=== PATIENT | female | born 1945 | race African-American/Black ===

== ENCOUNTER 2016-04-17 13:36 | Inpatient (IN) ==
[2016-04-17 14:51] LABS: Basophils % 0.3 % (0.0-0.8); Eosinophils % 0.3 % (0.00-10.9); Hemoglobin 12.3 GM/DL (12.0-16.0); Immature Granulocytes % 0.4 %; Immature Granulocytes Absolute 0.04 #; Lymphocytes # 1.4 10*3/uL (1.4-4.0); Lymphocytes % 14.1 % (21.3-54.2); Mean Corpuscular HGB Conc 28.9 GM/DL (32-36); Mean Corpuscular Hemoglobin 30 PG (27-34); Mean Corpuscular Volume 103.9 FL (87-102); Mean Platelet Volume 9.6 FL (9.6-12.0); Monocytes # 0.4 10*3/uL (0.11-0.8); Monocytes % 4.2 % (1.7-12.7); Neutrophils # 7.7 10*3/uL (1.4-7.4); Neutrophils % 80.7 % (38.7-73.9); Platelet Count 199 T/CUMM (130-400); Red Blood Count 4.09 MC/CUMM (3.8-5.5); Red Cell Distribution Width 13.7 % (9.3-17.3); White Blood Count 9.6 T/CUMM (4-12)
[2016-04-17 14:53] LABS: Hematocrit 42.5 VOL% (35.7-47.0)
--- NOTE | 2016-04-17 15:03 | EKG Report ---
Stationary ECG Study [facility] ER Test Date: 04/17/2016 3:02:11 PM Pat Name: KATHI PONCE Department: Room: Gender: F Couture Alterations Dressmaker: : [id number] Requested by: Sushil Grijalva Order Number: [id number] Reading MD: LAI PENA Intervals Iraan Rate: 80 P: 57 MO: 141 QRS: 93 QRSD: 137 T: -7 QT: 389 QTc: 426 Interpretive Statements SINUS RHYTHM BORDERLINE RIGHT AXIS DEVIATION OLD HIGH LATERAL MYOCARDIAL INFARCTION INTRAVENTRICULAR CONDUCTION DELAY Electronically Signed On 04-17-16 16:28:47 INFO PRINT PRESS OPERATOR by LAI PENA [email or web address]
[2016-04-17 15:20] LABS: Albumin 3.4 G/DL (3.4-5.0); Bilirubin,Total 0.4 MG/DL (0.2-1.0); Calcium 8.9 MG/DL (8.5-10.1); Free T4 (Free Thyroxine) 1.08 NG/DL (0.76-1.46); Magnesium 2.4 MG/DL (1.8-2.4); Osmolality,Calculated 285.3 MOS/KG (273-304); Potassium 5.1 MMOL/L (3.5-5.1); Thyroid Stimulating Hormone 2.19 uIU/ml (0.358-3.74)
--- NOTE | 2016-04-17 15:30 | CT Report ---
Referring physician: Sushil Mckeon Exam: CT brain without contrast Date: April 17, 2016 Comparison: CT brain without contrast January 14, 2016 Reason: Altered level of consciousness The patient is an Emergency Department patient on April 17, 2016. Technique: Axial images of the head were obtained without the use of contrast. Total DLP was 1108.9 mGy*cm. Findings: There is prominent hyperostosis frontalis interna, which produces mild artifact at the frontal lobes. No definite recent intracranial hemorrhage, abnormal mass effect or acute infarction is identified. No hydrocephalus or midline shift is present. There is mild density at the bilateral basal ganglia. This is similar to before and most consistent with calcification. No acute osseous process is seen. The mastoid air cells and visualized paranasal sinuses are clear. Impression: No acute intracranial process is identified. The CT exam was performed using one or more of the following dose reduction techniques: Automated exposure control and adjustment of the mA and/or kV according to patient size. PROCEDURE INTERPRETED AT [facility] DEPARTMENT OF RADIOLOGY Final Report Signed by: Dr. Arvind Jerez
--- NOTE | 2016-04-17 15:41 | XRay Report ---
Portable chest Date:[04/17/2016] Clinical history: Chest pain Comparison: 02/09/2016 Technique: Portable AP sitting chest Findings: The heart is slightly larger in size. Expiratory chest with accentuation of the perihilar markings. Degenerative changes are noted. Impression: Limited expiratory chest. Cardiomegaly with findings which can be seen with mild pneumonitis/CHF. PROCEDURE INTERPRETED AT [facility] DEPARTMENT OF RADIOLOGY Final Report Signed by: Dr. Tran Schroeder
--- NOTE | 2016-04-17 15:46 | Emergency Department Note ---
Maria C Cristina Brittany, am scribing for, and in the presence of, Sushil Mckeon MD 14:19. Mike Cristina Phillip K, MD, personally performed the services described in this documentation, ascribed by Alessia Lombardi in my presence, and it is both accurate and complete [id number] . Arrival - Arrival ED Nursing Triage Note: REPORTS PT WAS HARD TO AROUSE THIS AM. EMS ARRIVED AND PT CONTINUES TO BE LETHARGIC BUT SLOW TO RESPOND. BG 127. PT LETHARGIC BUT EASY TO AROUSE 98AT TRIAGE Mode of Arrival: Stretcher Limitations: No Limitations Source: Patient, Family - History of Present Illness Onset (ago): hour(s) (Started eariler this morning) Consistency: constant Severity: moderate Date of Last Menstrual Period: HYST <Sushil Mckeon - Last Filed: 04/17/16 15:46> <Philip Aranda - Last Filed: 04/17/16 18:23> - Arrival Chief Complaint: Non-Specific Stated Complaint: LETHARGIC - History of Present Illness HPI Narrative: This is a obese 70 y/o black female,who presents to the ED with c/o lethargy which started earlier this morning. Her family reports she was hard to arouse this morning. Her tried to wake her up from sleep this morning, and tried to give her juice. with no answer from pt. Her son states pt normally ambulates around her home. Her son denies any fever, vomiting or diarrhea. Pt denies any pain at all. Pt acknowledges taking Ambien PRN when she has trouble sleeping. She states she took the Ambien last night, at this time it is unknown exactly how many she took. Her Last Known Well Times was last night. Pt denies any other complaints/pain in the ED at this time. Pt has a PMHx of HTN, thyroid disorder, NIDDM, dyslipidemia, bronchitis, asthma, obstructive sleep apnea, GERD , osteoporosis, back/neck problems, clotting problems, and reproductive cancer. Pt has had a cardiac cath, cholectstectomy, and hysterectomy. Pt has a family medical Hx of cancer, diabetes, HTN, and heart disease. Pt denies a social Hx. (Alessia Lombardi) This is a obese 70 y/o black female,who presents to the ED with c/o lethargy which started earlier this morning. Her family reports she was hard to arouse this morning. Her tried to wake her up from sleep this morning, and tried to give her juice. with no answer from pt. Her son states pt normally ambulates around her home. Her son denies any fever, vomiting or diarrhea. Pt denies any pain at all. Pt acknowledges taking Ambien PRN when she has trouble sleeping. She states she took the Ambien last night, at this time it is unknown exactly how many she took. Her Last Known Well Times was last night. Pt denies any other complaints/pain in the ED at this time. Pt has a PMHx of HTN, thyroid disorder, NIDDM, dyslipidemia, bronchitis, asthma, obstructive sleep apnea, GERD , osteoporosis, back/neck problems, clotting problems, and reproductive cancer. Pt has had a cardiac cath, cholectstectomy, and hysterectomy. Pt has a family medical Hx of cancer, diabetes, HTN, and heart disease. Pt denies a social Hx. (Sushil Mckeon) Allergies/Adverse Reactions: Allergies Allergy/AdvReac Type Severity Reaction Status Date / Time IVP DYE Allergy Unknown/Unable Uncoded 11/13/14 17:11 to obtain Home Medications: Home Medications Medication Instructions Recorded Confirmed Type Allopurinol [Zyloprim] 300 mg PO DAILY #30 tablet 01/17/16 01/21/16 Rx Aspirin EC Tab 81 mg PO DAILY tablet 01/17/16 01/21/16 Rx Bumetanide Tab [Bumex Tab] 1 mg PO BID DIURETIC #60 tablet 01/17/16 01/21/16 Rx Diltiazem Tab [Cardizem Tab] 60 mg PO BID #60 tablet 01/17/16 01/21/16 Rx Glimepiride [Amaryl] 4 mg PO DAILY W/BREAKFAST #30 01/17/16 01/21/16 Rx tablet Hydrocortisone (Anusol-Hc) Sup 25 mg RECTAL BID #60 suppository 01/17/16 Rx [Anusol HC Supp] Levothyroxine Tab [Synthroid Tab] 50 mcg PO DAILY@0700 #30 tablet 01/17/1601/20 Rx Losartan Potassium 25 mg PO DAILY #30 tablet 01/17/16 01/21/16 Rx Meclizine [Antivert] 12.5 mg PO BID PRN #60 tablet 01/17/16 01/21/16 Rx Metformin HCl [Metformin HCl ER] 500 mg PO BID #60 tab.er.24 01/17/16 01/21/16 Rx Pantoprazole Tab [Protonix Tab] 40 mg PO DAILY #30 01/17/16 01/21/16 Rx Potassium Chloride [K-Tab ER] 10 meq PO DAILY #30 tablet.er 01/17/16 01/21/16 Rx Doxycycline Monohydrate 50 mg PO BID 01/21/16 01/21/16 History Warfarin Sodium 6 mg PO DAILY 01/21/16 01/21/16 History Indomethacin Cap [Indocin Cap] 25 mg PO TID #30 capsule 02/10/16 Rx Tizanidine HCl [Zanaflex] 2 mg PO Q6H #40 capsule 02/10/16 Rx Review of System - Review of System 12 point system: reviewed and no additional remarkable complaints except as stated - Review of System Constitutional: Present: fever Gastrointestinal: Present: vomiting, diarrhea Neurological: Present: other (Lethargic, slow to respond ) <Sushil Mckeon - Last Filed: 04/17/16 15:46> Medical,Surgical,& Family Hx - Medical History Cardio: History of: Hypertension Endocrine: History of: Diabetes Mellitus (NIDDM), Dyslipidemia, Thyroid Disorder Respiratory: History of: Asthma, Bronchitis, Obstructive Sleep Apnea Gastrointestinal: History of: GERD Musculoskeletal: History of: Back/Neck Problems (chronic thoracic spine spasm), Osteoporosis Hematology: History of: Clotting Problems Reproductive: History of: Reproductive Cancer - Surgical History Cardiac Surgeries: Sugical HX of: Cardiac Catheterization Abdominal Surgeries: Surgical HX of: Cholecystectomy Reproductive Surgeries: Surgical HX of;: Hysterectomy - Family History Family History: Reports;: Family Cancer (father, 4 brothers, 1 sister), Family Diabetes (sister), Family Heart Disease (mother), Family Hypertension (father, mother) Denies;: Family Anesthesia Reaction, Family Psychiatric Problems, Family Stroke - Social History Smoking Status: Never smoker Frequency of Alcohol Use: None Type of Drug Use: None <Sushil Mckeon - Last Filed: 04/17/16 15:46> Exam - General General appearance: alert, in no apparent distress, obese - Head Head exam: Present: atraumatic, normocephalic, normal inspection - Eye Eye exam: Present: normal appearance, PERRL, EOMI - ENT ENT exam: Present: normal exam, normal oropharynx, mucous membranes moist - Neck Neck exam: Present: normal inspection, full ROM, trachea midline. Absent: tenderness, thyromegaly - Chest Chest inspection: Present: normal inspection, symmetric chest wall rise. Absent : tenderness, rash, abscess - Respiratory Respiratory exam: Present: rales (Bi-basilar Rales). Absent: respiratory distress, rhonchi, stridor, wheezes - Cardiovascular Cardiovascular exam: Present: regular rate, normal rhythm, normal heart sounds. Absent: murmur, rubs, gallop, clicks - Abdominal Exam Abdominal exam: Present: soft. Absent: distention, tenderness, guarding, rebound, rigidity - Extremities Exam Extremities exam: Present: normal inspection, full ROM, normal capillary refill. Absent: tenderness, joint swelling, calf tenderness - Back Exam Back exam: Present: normal inspection, full ROM. Absent: tenderness, muscle spasm, rashes - Neurological Exam Neurological exam: Present: alert, oriented X3, CN II-XII intact, other ( Lethargic, slow to respond, hard to arouse but arousable) - Psychiatric Psychiatric exam: Present: normal affect, normal mood. Absent: agitated, anxious - Skin Skin exam: Present: warm, dry, intact, normal color. Absent: rash, cyanosis, diaphoresis <Sushil Mckeon - Last Filed: 04/17/16 15:46> Vital Signs: Vital Signs Temperature 98.0 F 04/17/16 13:37 Pulse Rate 84 04/17/16 13:37 Respiratory Rate 17 04/17/16 14:37 Blood Pressure 163/92 04/17/16 13:37 O2 Sat by Pulse Oximetry 96 04/17/16 13:37 (Alessia Lombardi) (Sushil Mckeon) (Philip Aranda) Course <Sushil Mckeon - Last Filed: 04/17/16 15:46> - Consultations Time: 18:20 <Philip Aranda - Last Filed: 04/17/16 18:23> Course Narrative: Patient's urinalysis is presently pending. I feel the patient's decreased responsiveness is possibly due to her Ambien. Patient will be signed out to Dr. Aranda. (Sushil Mckeon) - Consultations Consultation #1: Patient will be admitted to the hospital for altered mental status hepatic encephalopathy by the hospitalist (Philip Aranda) Results - Labs CBC & BMP: 04/17/16 13:44 04/17/16 13:44 Lab Results: I have reviewed the patients labs - EKG EKG results: interpreted by ERMD, sinus rhythm (nonspecific ST-T changes) - Diagnostic Findings Procedure: Chest x-ray: report reviewed by me (cardiomegaly.), CT: report reviewed by me (no acute intracranial process.) <Sushil Mckeon - Last Filed: 04/17/16 15:46> - Labs CBC & BMP: 04/17/16 13:44 04/17/16 13:44 <Philip Aranda - Last Filed: 04/17/16 18:23> - Labs Labs: Laboratory Tests 04/17/16 04/17/16 13:44 14:06 MCV 103.9 H MCHC 28.9 L Neut % (Auto) 80.7 H Lymph % (Auto) 14.1 L Neut # (Auto) 7.7 H POC Glucose 124 H (Alessia Lombardi) Laboratory Tests 04/17/16 04/17/16 13:44 14:06 MCV 103.9 H MCHC 28.9 L Neut % (Auto) 80.7 H Lymph % (Auto) 14.1 L Neut # (Auto) 7.7 H POC Glucose 124 H (Sushil Mckeon) Disposition <Sushil Mckeon - Last Filed: 04/17/16 15:46> Case discussed with: patient, patient's family Time of Disposition: 18:22 <Philip Aranda - Last Filed: 04/17/16 18:23> Clinical Impression: Altered mental status, unspecified, Hypersomnolence, Hepatic encephalopathy Disposition: Still a Patient Condition: Stable
[2016-04-17 15:57] LABS: Apearance,Urine Slightly Hazy (Clear); Bacteria,Urine Occasional /HPF (Few); Bilirubin,Urine Negative (Negative); Blood, Urine Negative (Negative); Glucose,Urine (UA) Negative (Negative); Ketones,Urine Negative (Negative); Mucus,Urine Occasional /LPF (Occasional); Nitrite,Urine Negative (Negative); Protein,Urine Negative; RBC,Urine <1 /HPF (0-4); Squamous Epithelial Cell,Urine Occasional /HPF (0-10); Urine Color Yellow (Yellow); Urine Specific Gravity 1.011 (1.001-1.035); Urine Urobilinogen < 2.0 EU/DL (0.2-1.0); WBC,Urine 1 /HPF (0-6)
--- NOTE | 2016-04-17 18:55 | Hospitalist History & Physical ---
<Jocelin Rodrigez N - Last Filed: 04/17/16 18:48> Assessment and Plan - Time spent with patient Time spent with patient: Greater than 30 minutes (1) Altered mental status, unspecified Status: Acute Assessment and plan: Admit to monitored bed ABG now GI consult routine labs in AM, repeat Ammonia in AM chronulac 20mg PO Q4H MG, BNP now diabetic diet, SSI while inpt TSH/T4 resume home meds as appropriate PRN meds CPAP at night DVT prophylaxis further plan and addendum to follow per Dr. Rodarte Current Visit: Yes (2) Hepatic encephalopathy Status: Acute Current Visit: Yes (3) Hypersomnolence Status: Acute Current Visit: Yes (4) CHF (congestive heart failure) Status: Acute Current Visit: No History of Present Illness Chief complaint: confusion, AMS History of present illness: Ms. Littlejohn is a 70 year old female who was brought to the Er today after being very lethargic and confused this morning. Her son who lives with her states that she was very sleepy and sluggish to respond around 10;30 this morning, he was concerned her sugar was dropping and they got her to drink some juice but when she did not improve they called 911. EMS says her glucose was 126. She has slept through most of her time in the ER, in the last ten minutes she has become more awake and alert, at the time we saw her she was assisted to the restroom by daughter and nurse, she was able to provide us with more information. She states she has been more short of breath over the last week, also had some constipation that she took laxitives for and complains of being gassy. She did take an Ambien last night before bed but one does not normally make her sleep like she did today. She has a PMH of HTN, thyroid disorder, DM, dyslipidemia, bronchitis, asthma, obstructive sleep apnea, GERD, osteoporosis, back/neck problems, clotting problems, and reproductive cancer. Pt has had a cardiac cath, cholectstectomy, and hysterectomy. Pt has a family medical Hx of cancer, diabetes, HTN, and heart disease. Pt denies a social Hx. recent echo shows an EF of >65% with some diastolic dysfunction. She was also noted today to have an elevated Ammonia level, no prior history of liver failure, no prior ammonia or radiologic studies in records. Pt has been having increased difficulty getting around at home for the last three years, uses a cane. Also uses a CPAP at night. Home Medications Medication Instructions Recorded Confirmed Type Allopurinol [Zyloprim] 300 mg PO DAILY #30 tablet 01/17/16 01/21/16 Rx Aspirin EC Tab 81 mg PO DAILY tablet 01/17/16 01/21/16 Rx Bumetanide Tab [Bumex Tab] 1 mg PO BID DIURETIC #60 tablet 01/17/16 01/21/16 Rx Diltiazem Tab [Cardizem Tab] 60 mg PO BID #60 tablet 01/17/16 01/21/16 Rx Glimepiride [Amaryl] 4 mg PO DAILY W/BREAKFAST #30 01/17/16 01/21/16 Rx tablet Hydrocortisone (Anusol-Hc) Sup 25 mg RECTAL BID #60 suppository 01/17/16 Rx [Anusol HC Supp] Levothyroxine Tab [Synthroid Tab] 50 mcg PO DAILY@0700 #30 tablet 01/17/1601/20 Rx Losartan Potassium 25 mg PO DAILY #30 tablet 01/17/16 01/21/16 Rx Meclizine [Antivert] 12.5 mg PO BID PRN #60 tablet 01/17/16 01/21/16 Rx Metformin HCl [Metformin HCl ER] 500 mg PO BID #60 tab.er.24 01/17/16 01/21/16 Rx Pantoprazole Tab [Protonix Tab] 40 mg PO DAILY #30 01/17/16 01/21/16 Rx Potassium Chloride [K-Tab ER] 10 meq PO DAILY #30 tablet.er 01/17/16 01/21/16 Rx Doxycycline Monohydrate 50 mg PO BID 01/21/16 01/21/16 History Warfarin Sodium 6 mg PO DAILY 01/21/16 01/21/16 History Indomethacin Cap [Indocin Cap] 25 mg PO TID #30 capsule 02/10/16 Rx Tizanidine HCl [Zanaflex] 2 mg PO Q6H #40 capsule 02/10/16 Rx Allergies Allergy/AdvReac Type Severity Reaction Status Date / Time IVP DYE Allergy Unknown/Unable Uncoded 11/13/14 17:11 to obtain Medical,Surgical,& Family Hx - Medical History Cardio: History of: Hypertension Endocrine: History of: Diabetes Mellitus (NIDDM), Dyslipidemia, Thyroid Disorder Respiratory: History of: Asthma, Bronchitis, Obstructive Sleep Apnea Gastrointestinal: History of: GERD Musculoskeletal: History of: Back/Neck Problems (chronic thoracic spine spasm), Osteoporosis Hematology: History of: Clotting Problems Reproductive: History of: Reproductive Cancer - Surgical History Cardiac Surgeries: Sugical HX of: Cardiac Catheterization Abdominal Surgeries: Surgical HX of: Cholecystectomy Reproductive Surgeries: Surgical HX of;: Hysterectomy - Family History Family History: Reports;: Family Cancer (father, 4 brothers, 1 sister), Family Diabetes (sister), Family Heart Disease (mother), Family Hypertension (father, mother) Denies;: Family Anesthesia Reaction, Family Psychiatric Problems, Family Stroke - Social History Smoking Status: Never smoker Frequency of Alcohol Use: None Type of Drug Use: None Marital Status: Lives With:: Children Functional capacity: uses cane/walker - Constitutional Constitutional: Present: fatigue, lethargy - EENT Eyes: Absent: blurry vision Nose, mouth and throat: Absent: sore throat - Cardiovascular Cardiovascular: Present: dyspnea on exertion, edema - Respiratory Respiratory: Present: dyspnea on exertion. Absent: cough - Gastrointestinal Gastrointestinal: Present: bloating, constipation - Genitourinary Genitourinary: Absent: dysuria, hematuria - Musculoskeletal Musculoskeletal: Present: back pain (chronic). Absent: muscle weakness - Neurological Neurological: Absent: focal weakness, frequent falls - Psychiatric Psychiatric: Present: confusion. Absent: anxiety - Endocrine Endocrine: Present: fatigue - Hematologic/Lymphatic Hematologic/Lymphatic: Present: easy bleeding, easy bruising Exam - Constitutional Vitals: Period Temp Pulse Resp BP Sys/Arellano Pulse Ox Last 24 Hr 98.0 F 84 17-22 163/92 96 General appearance: no acute distress, morbidly obese - Head Head exam: Present: normal inspection, normocephalic - Eye Eye exam: Present: EOMI. Absent: scleral icterus Pupils: Present: LORETO, normal accommodation - ENT ENT exam: Present: normal exam, normal oropharynx - Neck Neck exam: Present: normal inspection. Absent: lymphadenopathy - Respiratory Respiratory exam: Present: decreased breath sounds. Absent: wheezes - Cardiovascular Cardiovascular exam: Present: regular rate and rhythm. Absent: tachycardia - GI/Abdominal GI/Abdominal exam: Present: normal bowel sounds, soft. Absent: tenderness - Extremities Exam Extremities exam: Present: full ROM, edema (chronic) - Back Exam Back exam: Present: normal inspection. Absent: muscle spasm - Neurological Exam Neurological exam: Present: alert, altered, CN II-XII intact, reflexes normal, other (ataxic). Absent: motor sensory deficit - Psychiatric Psychiatric exam: Present: normal affect, normal mood - Skin Skin exam: Present: normal color, warm, dry Results - Labs CBC & BMP: 04/17/16 13:44 04/17/16 13:44 Lab Results: I have reviewed the past 24 hour labs <AsterMelita R - Last Filed: 04/17/16 19:51> Assessment and Plan (1) Hepatic encephalopathy Status: Acute Assessment and plan: lactulose every 6 hours, consult GI in am, liver us Current Visit: Yes (2) KOSTA (obstructive sleep apnea) Status: Acute Assessment and plan: cpap at night, abg Current Visit: Yes (3) CHF (congestive heart failure) Status: Acute Assessment and plan: bnp, hold lasix Current Visit: No (4) History of DVT of lower extremity Status: Acute Assessment and plan: Stat INR, cont coumadin Current Visit: No (5) Hypertension Status: Acute Assessment and plan: cont home meds Current Visit: No (6) Morbid obesity Status: Acute Current Visit: No (7) Type 2 diabetes mellitus Status: Acute Assessment and plan: isc Current Visit: No History of Present Illness History of present illness: Ms. Littlejohn is a 70 year old female seen and examined. Hospital course reviewed and edited. Patient's son reports compliance with cpap at bedtime. - EENT Eyes: Absent: loss of vision Ears: Absent: decreased hearing, ear discharge Nose, mouth and throat: Absent: headache(s) - Cardiovascular Cardiovascular: Absent: chest pain at rest - Respiratory Respiratory: Present: wheezing, snoring - Gastrointestinal Gastrointestinal: Absent: nausea, vomiting - Psychiatric Psychiatric: Absent: depression - Endocrine Endocrine: Absent: cold intolerance, heat intolerance Exam - Constitutional Vitals: Period Temp Pulse Resp BP Sys/Arellano Pulse Ox Last 24 Hr 84 21 142/67 98 - Respiratory Respiratory exam: Present: wheezes. Absent: rales, rhonchi - Neurological Exam Neurological exam: Absent: alert, oriented X3 Results - Labs CBC & BMP: 04/17/16 13:44 04/17/16 13:44 Labs: ammonia 64 - EKG EKG shows: sinus rhythm - Diagnostic Findings Procedure: Chest x-ray: report reviewed by me (?CHF ), CT: report reviewed by me (Head nothing acute )
[2016-04-17 20:25] LABS: ABG Base Excess 4.5 MMOL/L (-2.5-2.5); ABG HCO3 28.4 MMOL/L (20-26); ABG Oxygen Saturation 95.9 % (95-100); ABG PO2 86.2 MM HG (80-95); ABG TCO2 33.8 MMOL/L (23-27); Allen Test Positive
[2016-04-17 20:27] LABS: ABG PCO2 97.3 MM HG (35-48); ABG PH 7.188 (7.35-7.45)
[2016-04-17] MEDS ORDERED: ACETAMINOPHEN 325 MG TABLET PO PRN (21:36)
[2016-04-17] MEDS ORDERED: DEXTROSE 50% 25 GM/50 ML VIAL IV PRN (21:36)
[2016-04-17] MEDS ORDERED: ONDANSETRON 4 MG/2 ML VIAL IV PRN (21:36)
[2016-04-17] MEDS ORDERED: GLUCAGON 1 MG VIAL IM PRN (21:36)
[2016-04-17 22:15] LABS: INR 1.1; PT Patient Result 11.6 SECS; Partial Thromboplastin Time 30.3 SECS (0-40)
[2016-04-17] MEDS: INSULIN LISPRO 100 UNIT/ML SUBCUT SCH (22:36)
[2016-04-17] MEDS: HYDROCORTISONE 25 MG SUPP RECTAL SCH (23:30)
[2016-04-17] MEDS: ENOXAPARIN 120 MG/0.8 ML SYRINGE SUBCUT SCH (23:40)
[2016-04-17] MEDS: LACTULOSE 20 GM/30 ML UDCUP PO SCH (23:40)
[2016-04-17] MEDS: DILTIAZEM 60 MG TABLET PO SCH (23:41)
[2016-04-18 00:03] LABS: Apearance,Urine Slightly Hazy (Clear); Bacteria,Urine Occasional /HPF (Few); Bilirubin,Urine Negative (Negative); Blood, Urine Moderate mg/dL (Negative); Glucose,Urine (UA) Negative (Negative); Ketones,Urine Negative (Negative); Nitrite,Urine Negative (Negative); Protein,Urine Negative; RBC,Urine <1 /HPF (0-4); Squamous Epithelial Cell,Urine Occasional /HPF (0-10); Urine Color Yellow (Yellow); Urine Specific Gravity 1.005 (1.001-1.035); Urine Urobilinogen < 2.0 EU/DL (0.2-1.0); WBC,Urine <1 /HPF (0-6)
[2016-04-18 01:22] LABS: Basophils % 0.2 % (0.0-0.8); Eosinophils # 0.1 10*3/uL (0.0-0.87); Eosinophils % 1.2 % (0.00-10.9); Hematocrit 40.2 VOL% (35.7-47.0); Hemoglobin 11.6 GM/DL (12.0-16.0); Immature Granulocytes % 0.4 %; Immature Granulocytes Absolute 0.04 #; Lymphocytes # 1.5 10*3/uL (1.4-4.0); Lymphocytes % 17.3 % (21.3-54.2); Mean Corpuscular HGB Conc 28.9 GM/DL (32-36); Mean Corpuscular Hemoglobin 29 PG (27-34); Mean Corpuscular Volume 101.8 FL (87-102); Mean Platelet Volume 9.8 FL (9.6-12.0); Monocytes # 0.4 10*3/uL (0.11-0.8); Monocytes % 4.6 % (1.7-12.7); Neutrophils # 6.8 10*3/uL (1.4-7.4); Neutrophils % 76.3 % (38.7-73.9); Platelet Count 192 T/CUMM (130-400); Red Blood Count 3.95 MC/CUMM (3.8-5.5); Red Cell Distribution Width 13.4 % (9.3-17.3); White Blood Count 8.9 T/CUMM (4-12)
[2016-04-18 01:47] LABS: Potassium 5.9 MMOL/L (3.5-5.1)
[2016-04-18] MEDS: LACTULOSE 20 GM/30 ML UDCUP PO SCH ×5 (02:36→23:16)
[2016-04-18] MEDS: LEVOTHYROXINE 50 MCG TABLET PO SCH (06:08)
--- NOTE | 2016-04-18 07:57 | Ultrasound Report ---
Referring Physician: Melita Rodarte Exam: US right upper quadrant Date: April 18, 2016 Reason: Liver failure Comparison: None Technique: Grayscale ultrasound images of the right upper abdomen were obtained. Ultrasound images were captured and stored. Findings: The liver measures 13.1 cm in length. No focal suspicious hepatic lesion is identified, but evaluation is limited by artifact from patient body habitus. The main portal vein appears patent. The gallbladder is not identified, but there is a history of cholecystectomy. The common bile duct is upper normal in size, measuring 0.5 cm in diameter. The visualized pancreas is unremarkable, but it is partially obscured by bowel gas. The right kidney measures 10.5 x 5.7 x 5.6 cm. No right hydronephrosis or suspicious renal lesion is identified. No ascites is seen. Impression: No acute abdominal process is identified. However, evaluation is limited by artifact from patient body habitus. PROCEDURE INTERPRETED AT [facility] DEPARTMENT OF RADIOLOGY Final Report Signed by: Dr. Arvind Jerez
[2016-04-18] MEDS ORDERED: INFLUENZA VIRUS VACCINE 0.5 ML SYRINGE IM ONE (09:00)
[2016-04-18 09:12] LABS: Magnesium 2.2 MG/DL (1.8-2.4); Potassium 5.4 MMOL/L (3.5-5.1)
[2016-04-18 09:22] LABS: Allen Test Positive
[2016-04-18 09:24] LABS: ABG Base Excess 8.4 MMOL/L (-2.5-2.5); ABG HCO3 31.8 MMOL/L (20-26); ABG Oxygen Saturation 79.9 % (95-100); ABG PCO2 68.7 MM HG (35-48); ABG PH 7.338 (7.35-7.45); ABG PO2 43.9 MM HG (80-95); ABG TCO2 33.3 MMOL/L (23-27)
[2016-04-18] MEDS: INSULIN LISPRO 100 UNIT/ML SUBCUT SCH ×4 (09:34→20:46)
[2016-04-18] MEDS: ASPIRIN EC 81 MG TABLET PO SCH (10:16)
[2016-04-18] MEDS: ALLOPURINOL 300 MG TABLET PO SCH (10:16)
[2016-04-18] MEDS: DILTIAZEM 60 MG TABLET PO SCH ×2 (10:16→20:17)
--- NOTE | 2016-04-18 10:16 | Hospitalist Progress Note ---
Assessment and Plan - Time spent with patient Time spent with patient: Greater than 30 minutes (1) Acute respiratory failure Status: Acute Assessment and plan: CO2 retention secondary to pickwickian vs KOSTA? No history of COPD. Will evaluate the patient of BIPAP. Consult Pulm. Current Visit: Yes (2) Encephalopathy Status: Acute Assessment and plan: Likely secondary to CO2 narcosis. ABGs are much improved currently. Current Visit: Yes (3) CHF (congestive heart failure) Status: Acute Assessment and plan: Stable. Current Visit: No (4) History of DVT of lower extremity Status: Acute Assessment and plan: Continue warfarin. Current Visit: No (5) Gout Status: Acute Assessment and plan: Continue some medications. Current Visit: Yes (6) Hypertension Status: Acute Assessment and plan: Continue medications. Current Visit: No (7) Type 2 diabetes mellitus Status: Acute Assessment and plan: Well controlled. Obtain a HgA1c. Current Visit: No (8) Morbid obesity Status: Acute Assessment and plan: May be contributing to the current CO2 retention. Current Visit: No Hospitalist: Subjective Interval history: Admitted overnight with altered mental status. Appears to have returned to baseline mental status. No complaints currently. Reports feeling better this morning. She was on BIPAP all night. Exam - Constitutional Vitals: Period Temp Pulse Resp BP Sys/Arellano Pulse Ox Last 24 Hr 96.2 F-98.0 F 53-86 7-33 138-198/60-107 93-100 General appearance: no acute distress - Head Head exam: Present: normocephalic, atraumatic - Eye Eye exam: Present: EOMI Pupils: Present: LORETO - ENT ENT exam: Present: normal exam - Neck Neck exam: Present: normal inspection - Respiratory Respiratory exam: Present: clear to auscultation bilaterally. Absent: rhonchi, wheezes - Cardiovascular Cardiovascular exam: Present: regular rate and rhythm. Absent: gallop, rubs, systolic murmur - GI/Abdominal GI/Abdominal exam: Present: normal bowel sounds, soft. Absent: distended, firm , guarding, tenderness, rebound - Extremities Exam Extremities exam: Present: normal inspection. Absent: calf tenderness, edema Results - Labs CBC & BMP: 04/18/16 00:46 04/18/16 08:41 Lab Results: I have reviewed the past 24 hour labs
[2016-04-18] MEDS: PANTOPRAZOLE 40 MG TABLET PO SCH (10:17)
[2016-04-18] MEDS: ENOXAPARIN 120 MG/0.8 ML SYRINGE SUBCUT SCH ×2 (10:18→23:16)
--- NOTE | 2016-04-18 11:40 | Gastrointestinal Consult Note ---
Assessment and Plan (1) Hepatic encephalopathy Status: Acute Assessment and plan: 04/18-Onset of lethargy, increased somnolence with findings of elevated ammonia level. No GI bleeding, Abd US negative. No hx of liver disease, alcohol use. Ammonia trending down today. Plan and addendum to follow by Dr Menchaca. Current Visit: Yes History of Present Illness Chief complaint: Elevated ammonia level History of present illness: Ms. Littlejohn is a 70 year old female who was admitted to the hospital with onset of changes in mental status. Pt is a fair historian therefore information also obtained from chart review. She has a prior history of morbid obesity, sleep apnea, HTN, thyroid disorder, DM and asthma. Pt states that on yesterday her tried to wake her up that morning and she was unarousable. She was lethargic and confused at that time therefore she was brought in for further evaluation. Pt blood glucose was stable on admission however shortly after arriving at the hospital she became more alert. She states that she has been taking Ambien for sleep and they have not been working as well. She is uncertain but feels like she may have taken another one but she cannot recall. She was found on admission also to have elevated ammonia level. She states she has never had this in the past that she is aware of. She denies any history of liver disease, alcohol use or elevated liver test in the past. Denies any GI bleed, melena, hematochezia. She denies history of tobacco use. Denies any recent medication changes, illnesses. Abdominal US shows no acute abdominal process identified with no focal liver masses seen. LFTs unremarkable. Ammonia 64 on admission down to 55 today. She has been given lactulose with one bowel movement today. Pt is asking regarding last colonoscopy which was done in 2011 with polyp removal (tubular adenoma) with recommedation for three year return. She is wishing to schedule this when she is able to following this inpatient stay. Home Medications Medication Instructions Recorded Confirmed Type Allopurinol [Zyloprim] 300 mg PO DAILY #30 tablet 01/17/16 01/21/16 Rx Aspirin EC Tab 81 mg PO DAILY tablet 01/17/16 01/21/16 Rx Bumetanide Tab [Bumex Tab] 1 mg PO BID DIURETIC #60 tablet 01/17/16 04/17/16 Rx Diltiazem Tab [Cardizem Tab] 60 mg PO BID #60 tablet 01/17/16 04/17/16 Rx Glimepiride [Amaryl] 4 mg PO DAILY W/BREAKFAST #30 01/17/16 01/21/16 Rx tablet Hydrocortisone (Anusol-Hc) Sup 25 mg RECTAL BID #60 suppository 01/17/16 Rx [Anusol HC Supp] Levothyroxine Tab [Synthroid Tab] 50 mcg PO DAILY@0700 #30 tablet 01/17/1601/20 Rx Losartan Potassium 25 mg PO DAILY #30 tablet 01/17/16 01/21/16 Rx Meclizine [Antivert] 12.5 mg PO BID PRN #60 tablet 01/17/16 01/21/16 Rx Metformin HCl [Metformin HCl ER] 500 mg PO BID #60 tab.er.24 01/17/16 04/17/16 Rx Pantoprazole Tab [Protonix Tab] 40 mg PO DAILY #30 01/17/16 01/21/16 Rx Potassium Chloride [K-Tab ER] 10 meq PO DAILY #30 tablet.er 01/17/16 04/17/16 Rx Doxycycline Monohydrate 50 mg PO BID 01/21/16 01/21/16 History Warfarin Sodium 5 mg PO DAILY 01/21/16 04/17/16 History Indomethacin Cap [Indocin Cap] 25 mg PO TID #30 capsule 02/10/16 Rx Tizanidine HCl [Zanaflex] 2 mg PO Q6H #40 capsule 02/10/16 Rx Zolpidem Tartrate 10 mg PO BEDTIME PRN 04/17/16 04/17/16 History Allergies Allergy/AdvReac Type Severity Reaction Status Date / Time IVP DYE Allergy Unknown/Unable Uncoded 11/13/14 17:11 to obtain Medical,Surgical,& Family Hx - Medical History Cardio: History of: Hypertension Endocrine: History of: Diabetes Mellitus (NIDDM), Dyslipidemia, Thyroid Disorder Respiratory: History of: Asthma, Bronchitis, Obstructive Sleep Apnea Gastrointestinal: History of: GERD Musculoskeletal: History of: Back/Neck Problems (chronic thoracic spine spasm), Osteoporosis Hematology: Comment Only: Clotting Problems (Yes; previous DVT) Reproductive: History of: Reproductive Cancer - Surgical History Cardiac Surgeries: Sugical HX of: Cardiac Catheterization Abdominal Surgeries: Surgical HX of: Cholecystectomy Reproductive Surgeries: Surgical HX of;: Hysterectomy - Family History Family History: Reports;: Family Cancer (father, 4 brothers, 1 sister), Family Diabetes (sister), Family Heart Disease (mother), Family Hypertension (father, mother) Denies;: Family Anesthesia Reaction, Family Psychiatric Problems, Family Stroke - Social History Smoking Status: Never smoker Frequency of Alcohol Use: None Type of Drug Use: None 12 point system: reviewed and no additional remarkable complaints except as stated - Constitutional Constitutional: Present: as per HPI - EENT Eyes: Present: as per HPI Ears: Present: as per HPI Nose, mouth and throat: Present: as per HPI - Cardiovascular Cardiovascular: Present: as per HPI - Respiratory Respiratory: Present: as per HPI - Gastrointestinal Gastrointestinal: Present: as per HPI - Genitourinary Genitourinary: Present: as per HPI - Musculoskeletal Musculoskeletal: Present: as per HPI - Neurological Neurological: Present: as per HPI - Psychiatric Psychiatric: Present: as per HPI - Endocrine Endocrine: Present: as per HPI - Hematologic/Lymphatic Hematologic/Lymphatic: Present: as per HPI Exam - Constitutional Vitals: Period Temp Pulse Resp BP Sys/Arellano Pulse Ox Last 24 Hr 96.2 F-98.0 F 53-86 7-33 138-198/60-107 93-100 General appearance: no acute distress, morbidly obese - Head Head exam: Present: normal inspection, normocephalic - Eye Eye exam: Present: other (lids and conjunctiva unremarakble). Absent: scleral icterus - ENT ENT exam: Present: normal exam, normal oropharynx - Neck Neck exam: Present: normal inspection - Respiratory Respiratory exam: Present: clear to auscultation bilaterally. Absent: rales, rhonchi, wheezes - Cardiovascular Cardiovascular exam: Present: regular rate and rhythm. Absent: diastolic murmur , JVD, systolic murmur - GI/Abdominal GI/Abdominal exam: Present: normal bowel sounds, soft. Absent: ascites, distended, mass, organomegaly, tenderness - Extremities Exam Extremities exam: Present: normal inspection, full ROM - Back Exam Back exam: Present: normal inspection - Neurological Exam Neurological exam: Present: alert, oriented X3 - Psychiatric Psychiatric exam: Present: normal affect, normal mood - Skin Skin exam: Present: normal color, warm, dry Results - Labs CBC & BMP: 04/18/16 00:46 04/18/16 08:41 Lab Results: I have reviewed the past 24 hour labs
[2016-04-18] MEDS: WARFARIN 3 MG TABLET PO SCH (17:18)
[2016-04-18] MEDS: HYDROCORTISONE 25 MG SUPP RECTAL SCH ×2 (20:05→20:32)
[2016-04-19 03:37] LABS: Basophils % 0.5 % (0.0-0.8); Eosinophils # 0.1 10*3/uL (0.0-0.87); Eosinophils % 1.2 % (0.00-10.9); Hematocrit 36.9 VOL% (35.7-47.0); Hemoglobin 11.1 GM/DL (12.0-16.0); Immature Granulocytes % 0.3 %; Immature Granulocytes Absolute 0.03 #; Lymphocytes # 1.9 10*3/uL (1.4-4.0); Lymphocytes % 21.4 % (21.3-54.2); Mean Corpuscular HGB Conc 30.1 GM/DL (32-36); Mean Corpuscular Hemoglobin 30 PG (27-34); Mean Corpuscular Volume 101.1 FL (87-102); Mean Platelet Volume 9.6 FL (9.6-12.0); Monocytes # 0.5 10*3/uL (0.11-0.8); Monocytes % 5.3 % (1.7-12.7); Neutrophils # 6.2 10*3/uL (1.4-7.4); Neutrophils % 71.3 % (38.7-73.9); Platelet Count 161 T/CUMM (130-400); Red Blood Count 3.65 MC/CUMM (3.8-5.5); Red Cell Distribution Width 13.5 % (9.3-17.3); White Blood Count 8.7 T/CUMM (4-12)
[2016-04-19 03:39] LABS: ABG Base Excess 9.2 MMOL/L (-2.5-2.5); ABG PH 7.331 (7.35-7.45); ABG PO2 81.2 MM HG (80-95); ABG TCO2 34.5 MMOL/L (23-27); Allen Test Positive; Pt O2 Delivery Device BIPAP
[2016-04-19 03:46] LABS: ABG PCO2 71.7 MM HG (35-48)
[2016-04-19] MEDS: LEVOTHYROXINE 50 MCG TABLET PO SCH (06:04)
[2016-04-19] MEDS: LACTULOSE 20 GM/30 ML UDCUP PO SCH ×3 (06:04→18:11)
--- NOTE | 2016-04-19 07:21 | Pulmonology Consult Note ---
Assessment and Plan (1) Acute and chronic respiratory failure ([id number]) Status: Acute Assessment and plan: The patient likely has chronic CO2 retention and has had a mild exacerbation. This was probably due to medications although she likely does have some obstructive airways disease. We will continue with bronchodilator therapy. Current Visit: Yes Qualifiers: Respiratory failure complication: hypoxia and hypercapnia Qualified Code(s) : J96.21 - Acute and chronic respiratory failure with hypoxia; J96.22 - Acute and chronic respiratory failure with hypercapnia (2) Asthma Status: Acute Assessment and plan: The patient does have some wheezing and likely has some obstructive airways disease. We will continue with bronchodilator therapy. Current Visit: Yes (3) Type 2 diabetes mellitus Status: Acute Assessment and plan: Her hemoglobin A1c level was under 6 and her glucoses have been doing okay. Current Visit: No (4) Morbid obesity Status: Acute Assessment and plan: The patient is extremely overweight and inactive. Current Visit: No (5) Altered mental status, unspecified Status: Acute Assessment and plan: Patient came in with a mild encephalopathy probably due to medications and her CO2 retention. She is probably back to baseline now. Current Visit: Yes (6) KOSTA (obstructive sleep apnea) Status: Acute Assessment and plan: She apparently is very noncompliant with her CPAP. Current Visit: Yes History of Present Illness Chief complaint: confusion History of present illness: Ms. Littlejohn is a 70 year old black female that was brought in recently because of some confusion. She was found to have significant CO2 retention and has improved somewhat and she is more alert now. She is not in very good health and is not very active at home. She is very overweight with hypertension and diabetes. She says she's been told she had asthma and occasionally uses an inhaler. She has obstructive sleep apnea but is noncompliant with her CPAP. She says she mainly uses low-flow oxygen at night. She came in with a PCO2 of 97 and that is improved to 71 this morning with a fairly normal pH. She is awake and says she's not that short of breath. She says she will cough and wheezing at times. She says she doesn't walk much at home. She has not complained of anything in particular at present. She says she's never smoked and she has never been told she had heart problems. She apparently does try Ambien for sleep. Home Medications Medication Instructions Recorded Confirmed Type Allopurinol [Zyloprim] 300 mg PO DAILY #30 tablet 01/17/16 01/21/16 Rx Aspirin EC Tab 81 mg PO DAILY tablet 01/17/16 01/21/16 Rx Bumetanide Tab [Bumex Tab] 1 mg PO BID DIURETIC #60 tablet 01/17/16 04/17/16 Rx Diltiazem Tab [Cardizem Tab] 60 mg PO BID #60 tablet 01/17/16 04/17/16 Rx Glimepiride [Amaryl] 4 mg PO DAILY W/BREAKFAST #30 01/17/16 01/21/16 Rx tablet Hydrocortisone (Anusol-Hc) Sup 25 mg RECTAL BID #60 suppository 01/17/16 Rx [Anusol HC Supp] Levothyroxine Tab [Synthroid Tab] 50 mcg PO DAILY@0700 #30 tablet 01/17/1601/20 Rx Losartan Potassium 25 mg PO DAILY #30 tablet 01/17/16 01/21/16 Rx Meclizine [Antivert] 12.5 mg PO BID PRN #60 tablet 01/17/16 01/21/16 Rx Metformin HCl [Metformin HCl ER] 500 mg PO BID #60 tab.er.24 01/17/16 04/17/16 Rx Pantoprazole Tab [Protonix Tab] 40 mg PO DAILY #30 01/17/16 01/21/16 Rx Potassium Chloride [K-Tab ER] 10 meq PO DAILY #30 tablet.er 01/17/16 04/17/16 Rx Doxycycline Monohydrate 50 mg PO BID 01/21/16 01/21/16 History Warfarin Sodium 5 mg PO DAILY 01/21/16 04/17/16 History Indomethacin Cap [Indocin Cap] 25 mg PO TID #30 capsule 02/10/16 Rx Tizanidine HCl [Zanaflex] 2 mg PO Q6H #40 capsule 02/10/16 Rx Zolpidem Tartrate 10 mg PO BEDTIME PRN 04/17/16 04/17/16 History Allergies Allergy/AdvReac Type Severity Reaction Status Date / Time IVP DYE Allergy Unknown/Unable Uncoded 11/13/14 17:11 to obtain - Constitutional Constitutional: Present: weakness. Absent: chills, fever(s), lethargy - EENT Eyes: Absent: loss of vision Ears: Absent: decreased hearing Nose, mouth and throat: Absent: dysphagia, headache(s), sinus pressure - Cardiovascular Cardiovascular: Present: dyspnea on exertion, edema, orthopnea. Absent: chest pain at rest, palpitations - Respiratory Respiratory: Present: cough, wheezing - Gastrointestinal Gastrointestinal: Absent: abdominal pain, change in bowel habits, dysphagia, nausea, vomiting - Genitourinary Genitourinary: Absent: dysuria, hematuria, urinary frequency - Musculoskeletal Musculoskeletal: Present: arthralgias, back pain, muscle weakness - Neurological Neurological: Present: confusion. Absent: abnormal speech, focal weakness Exam (Pulmonay) H&P - Constitutional Vitals: Period Temp Pulse Resp BP Sys/Arellano Pulse Ox Last 24 Hr 96.6 F-97.6 F 59-77 10-34 118-166/52-94 93-99 General appearance: no acute distress, morbidly obese, other (she is awake and talking comfortably now.) - Head Head exam: Present: normal inspection, normocephalic - Eye Eye exam: Present: EOMI. Absent: scleral icterus - ENT ENT exam: Present: normal exam - Neck Neck exam: Present: normal inspection. Absent: lymphadenopathy, thyromegaly - Respiratory Respiratory exam: Present: decreased breath sounds, rhonchi. Absent: accessory muscle use - Cardiovascular Cardiovascular exam: Present: regular rate and rhythm. Absent: gallop, JVD, systolic murmur - GI/Abdominal GI/Abdominal exam: Present: normal bowel sounds, soft. Absent: organomegaly, tenderness - Extremities Exam Extremities exam: Present: edema (she does have some brawny edema of the lower extremities.). Absent: calf tenderness - Neurological Exam Neurological exam: Present: alert, oriented X3, CN II-XII intact - Psychiatric Psychiatric exam: Present: normal affect - Skin Skin exam: Present: warm, dry Medical,Surgical,& Family Hx - Medical History Cardio: History of: Hypertension Endocrine: History of: Diabetes Mellitus (NIDDM), Dyslipidemia, Thyroid Disorder Respiratory: History of: Asthma, Bronchitis, Obstructive Sleep Apnea Gastrointestinal: History of: GERD Musculoskeletal: History of: Back/Neck Problems (chronic thoracic spine spasm), Osteoporosis Hematology: Comment Only: Clotting Problems (Yes; previous DVT) Reproductive: History of: Reproductive Cancer - Surgical History Cardiac Surgeries: Sugical HX of: Cardiac Catheterization Abdominal Surgeries: Surgical HX of: Cholecystectomy Reproductive Surgeries: Surgical HX of;: Hysterectomy - Family History Family History: Reports;: Family Cancer (father, 4 brothers, 1 sister), Family Diabetes (sister), Family Heart Disease (mother), Family Hypertension (father, mother) Denies;: Family Anesthesia Reaction, Family Psychiatric Problems, Family Stroke - Social History Smoking Status: Never smoker Frequency of Alcohol Use: None Type of Drug Use: None Results - Labs CBC & BMP: 04/19/16 03:25 04/18/16 08:41 Labs: Her PO2 is 81 with a PCO2 of 71 and a pH of 7.33. - Diagnostic Findings Procedure: Chest x-ray: image reviewed by me, report reviewed by me (chest x- ray shows mild cardiomegaly and small lung volumes but no definite CHF.)
[2016-04-19] MEDS: INSULIN LISPRO 100 UNIT/ML SUBCUT SCH ×4 (07:48→21:15)
--- NOTE | 2016-04-19 07:53 | Hospitalist Progress Note ---
Assessment and Plan (1) Acute and chronic respiratory failure ([id number]) Status: Acute Assessment and plan: Continue BiPAP overnight, albuterol inhalers. We will check ABG tomorrow morning Appreciate pulmonary assistance Current Visit: Yes Qualifiers: Respiratory failure complication: hypoxia and hypercapnia Qualified Code(s) : J96.21 - Acute and chronic respiratory failure with hypoxia; J96.22 - Acute and chronic respiratory failure with hypercapnia (2) Altered mental status, unspecified Status: Acute Assessment and plan: Resolved Likely was induced to elevated CO2 level Current Visit: Yes (3) Gout Status: Chronic Assessment and plan: Asymptomatic Continue home meds Current Visit: Yes (4) KOSTA (obstructive sleep apnea) Status: Chronic Assessment and plan: Continue BiPAP overnight Weight management recommend Current Visit: Yes (5) Acute on chronic diastolic CHF (congestive heart failure) Status: Chronic Assessment and plan: No signs of fluid overload Cardiomegaly on chest x-ray Continue home medication Current Visit: No (6) History of DVT of lower extremity Status: Chronic Assessment and plan: Continue home dose of warfarin Current Visit: No (7) Hypertension Status: Chronic Assessment and plan: Blood pressure stable Continue home medications Current Visit: No (8) Medical non-compliance Status: Chronic Assessment and plan: Strongly recommended adherence to BiPAP treatment Current Visit: No (9) Morbid obesity Status: Acute Assessment and plan: Weight management Current Visit: No Hospitalist: Subjective Interval history: 70 years old -[place] African female who presented with altered mental status and acute hypercapnic respiratory failure. She was admitted to ICU. Here initial CO2 was significantly elevated. She was placed on BiPAP. She was found to have elevated ammonia level and GI was consulted in regards . Patient started on lactulose every 6 hours her chest x-ray was clear with mild cardiomegaly and small lung volumes. Patient was afebrile. Pulmonary was consulted regarding acute hypercapnic respiratory failure patient was placed on BiPAP Today: Patient is alert and oriented. She denies any complaints. She was wearing BiPAP overnight. Her CO2 level 71 this morning. she is afebrile vital signs stable. Pulmonary started on albuterol treatment. She should be safe to be downgraded to the medical floor. Exam - Constitutional Vitals: Period Temp Pulse Resp BP Sys/Arellano Pulse Ox Last 24 Hr 96.6 F-97.6 F 59-77 10-34 118-166/52-94 93-99 General appearance: over weight, morbidly obese - Head Head exam: Present: normal inspection, normocephalic, atraumatic - Eye Eye exam: Present: EOMI Pupils: Present: LORETO - ENT ENT exam: Present: normal exam - Respiratory Respiratory exam: Present: decreased breath sounds - Cardiovascular Cardiovascular exam: Present: regular rate and rhythm - GI/Abdominal GI/Abdominal exam: Present: normal bowel sounds, distended - Extremities Exam Extremities exam: Present: normal inspection - Neurological Exam Neurological exam: Present: alert, oriented X3 - Psychiatric Psychiatric exam: Present: normal affect, normal mood - Skin Skin exam: Present: normal color Results - Labs CBC & BMP: 04/19/16 03:25 04/18/16 08:41
[2016-04-19 08:33] LABS: Calcium 8.5 MG/DL (8.5-10.1); Osmolality,Calculated 287.6 MOS/KG (273-304); Potassium 5.3 MMOL/L (3.5-5.1)
[2016-04-19] MEDS: methylPREDNISolone SOD SUC 40 MG/1 ML VIAL IV SCH ×3 (08:44→23:36)
[2016-04-19] MEDS: ALLOPURINOL 300 MG TABLET PO SCH (08:45)
[2016-04-19] MEDS: PANTOPRAZOLE 40 MG TABLET PO SCH (08:45)
[2016-04-19] MEDS: HYDROCORTISONE 25 MG SUPP RECTAL SCH ×2 (08:45→21:15)
[2016-04-19] MEDS: ASPIRIN EC 81 MG TABLET PO SCH (08:45)
[2016-04-19] MEDS: DILTIAZEM 60 MG TABLET PO SCH ×2 (08:45→21:14)
[2016-04-19] MEDS: THEOPHYLLINE ER (24 HR) 400 MG CAPSULE PO SCH (08:45)
--- NOTE | 2016-04-19 10:33 | Gastrointestinal Progress Note ---
Assessment and Plan (1) Hepatic encephalopathy Status: Acute Assessment and plan: 04/19-Mental status at baseline. Resp status improving. Having some loose bowel movements with Lacutlose. Plan and addendum to follow by DR menchaca. 04/18-Onset of lethargy, increased somnolence with findings of elevated ammonia level. No GI bleeding, Abd US negative. No hx of liver disease, alcohol use. Ammonia trending down today. Plan and addendum to follow by Dr Menchaca. Current Visit: Yes Gastroenterology - PN: Subj Interval history: CC: Elevated ammonia Pt is awake and alert sitting up in bed. States she is feeling better today. She is more alert, conversant. Denies any pain at present time. She states she is having small runny stools but mostly is passing flatus. She did not eat well the day or two leading up to her admission. She denies any abdominal pain, nausea or vomiting. Her breathing status has improved as well. She is at her baseline mental status. ROS: Denies SOB or chest pain Exam (Progress Note) - Constitutional Vitals: Period Temp Pulse Resp BP Sys/Arellano Pulse Ox Last 24 Hr 96.6 F-97.6 F 59-76 13-34 118-160/52-75 93-99 - Other Additional findings: General appearance: no acute distress, morbidly obese - Head Head exam: Present: normal inspection, normocephalic - Eye Eye exam: Present: other (lids and conjunctiva unremarakble). Absent: scleral icterus - ENT ENT exam: Present: normal exam, normal oropharynx - Neck Neck exam: Present: normal inspection - Respiratory Respiratory exam: Present: clear to auscultation bilaterally. Absent: rales, rhonchi, wheezes - Cardiovascular Cardiovascular exam: Present: regular rate and rhythm. Absent: diastolic murmur , JVD, systolic murmur - GI/Abdominal GI/Abdominal exam: Present: normal bowel sounds, soft. Absent: ascites, distended, mass, organomegaly, tenderness - Extremities Exam Extremities exam: Present: normal inspection, full ROM - Back Exam Back exam: Present: normal inspection - Neurological Exam Neurological exam: Present: alert, oriented X3 - Psychiatric Psychiatric exam: Present: normal affect, normal mood - Skin Skin exam: Present: normal color, warm, dry Results - Labs CBC & BMP: 04/19/16 03:25 04/19/16 04:44 Lab Results: I have reviewed the past 24 hour labs
[2016-04-19] MEDS: ENOXAPARIN 120 MG/0.8 ML SYRINGE SUBCUT SCH ×2 (11:40→23:36)
[2016-04-19] MEDS: ALBUTEROL 1.25 MG/3 ML NEB RESP TX SCH ×2 (12:00→19:11)
[2016-04-19] MEDS: WARFARIN 3 MG TABLET PO SCH (18:11)
[2016-04-20] MEDS: ALBUTEROL 1.25 MG/3 ML NEB RESP TX SCH ×4 (00:51→19:37)
[2016-04-20 02:51] LABS: Hematocrit 39.9 VOL% (35.7-47.0); Immature Granulocytes % 0.9 %; Immature Granulocytes Absolute 0.07 #; Lymphocytes # 0.5 10*3/uL (1.4-4.0); Lymphocytes % 6.6 % (21.3-54.2); Mean Corpuscular HGB Conc 30.1 GM/DL (32-36); Mean Corpuscular Hemoglobin 30 PG (27-34); Mean Corpuscular Volume 99.8 FL (87-102); Mean Platelet Volume 9.8 FL (9.6-12.0); Monocytes # 0.1 10*3/uL (0.11-0.8); Monocytes % 0.6 % (1.7-12.7); Neutrophils # 7.2 10*3/uL (1.4-7.4); Neutrophils % 91.9 % (38.7-73.9); Platelet Count 191 T/CUMM (130-400); Red Cell Distribution Width 13.2 % (9.3-17.3); White Blood Count 7.9 T/CUMM (4-12)
[2016-04-20 03:15] LABS: Calcium 8.7 MG/DL (8.5-10.1); Osmolality,Calculated 290.8 MOS/KG (273-304); Potassium 5.6 MMOL/L (3.5-5.1)
[2016-04-20] MEDS: LEVOTHYROXINE 50 MCG TABLET PO SCH (06:07)
[2016-04-20 06:08] LABS: Hypochromasia 1+; Lymphocytes 1 % (20-55); Segmented Neutrophils 98 % (50-85); Total Cells Counted 100
[2016-04-20 06:09] LABS: Platelet Estimate Adequate
[2016-04-20] MEDS: ALLOPURINOL 300 MG TABLET PO SCH (09:19)
[2016-04-20] MEDS: ASPIRIN EC 81 MG TABLET PO SCH (09:19)
[2016-04-20] MEDS: THEOPHYLLINE ER (24 HR) 400 MG CAPSULE PO SCH (09:19)
[2016-04-20] MEDS: DILTIAZEM 60 MG TABLET PO SCH ×2 (09:19→20:41)
[2016-04-20] MEDS: PANTOPRAZOLE 40 MG TABLET PO SCH (09:20)
[2016-04-20] MEDS: HYDROCORTISONE 25 MG SUPP RECTAL SCH ×2 (09:20→20:42)
[2016-04-20] MEDS: INSULIN LISPRO 100 UNIT/ML SUBCUT SCH ×4 (09:20→20:42)
[2016-04-20] MEDS: methylPREDNISolone SOD SUC 40 MG/1 ML VIAL IV SCH ×2 (09:20→13:57)
--- NOTE | 2016-04-20 09:24 | Gastrointestinal Progress Note ---
Assessment and Plan (1) Hepatic encephalopathy Status: Acute Assessment and plan: 04/20-Mental status remains at baseline. Lactulose stopped. No changes at present. , Plan and addendum to follow by Dr Menchaca. 04/19-Mental status at baseline. Resp status improving. Having some loose bowel movements with Lacutlose. Plan and addendum to follow by DR menchaca. 04/18-Onset of lethargy, increased somnolence with findings of elevated ammonia level. No GI bleeding, Abd US negative. No hx of liver disease, alcohol use. Ammonia trending down today. Plan and addendum to follow by Dr Menchaca. Current Visit: Yes Gastroenterology - PN: Subj Interval history: CC: Elevated ammonia Pt is awake, sitting up in bed, fully oriented. She states that she is feeling better at this time. She denies any pain, nausea or vomiting. Pt Lacutlose stopped and she states it has helped with the flatus and watery stools. Abdomen is soft, nontender. She has a good appetite at this time. ROS: Denies SOB or chest pain Exam (Progress Note) - Constitutional Vitals: Period Temp Pulse Resp BP Sys/Arellano Pulse Ox Last 24 Hr 96.6 F-98.4 F 69-92 9-22 135-163/63-92 95-100 - Other Additional findings: General appearance: no acute distress, morbidly obese - Head Head exam: Present: normal inspection, normocephalic - Eye Eye exam: Present: other (lids and conjunctiva unremarakble). Absent: scleral icterus - ENT ENT exam: Present: normal exam, normal oropharynx - Neck Neck exam: Present: normal inspection - Respiratory Respiratory exam: Present: clear to auscultation bilaterally. Absent: rales, rhonchi, wheezes - Cardiovascular Cardiovascular exam: Present: regular rate and rhythm. Absent: diastolic murmur , JVD, systolic murmur - GI/Abdominal GI/Abdominal exam: Present: normal bowel sounds, soft. Absent: ascites, distended, mass, organomegaly, tenderness - Extremities Exam Extremities exam: Present: normal inspection, full ROM - Back Exam Back exam: Present: normal inspection - Neurological Exam Neurological exam: Present: alert, oriented X3 - Psychiatric Psychiatric exam: Present: normal affect, normal mood - Skin Skin exam: Present: normal color, warm, dry Results - Labs CBC & BMP: 04/20/16 02:28 04/20/16 02:28 Lab Results: I have reviewed the past 24 hour labs
[2016-04-20] MEDS: ENOXAPARIN 120 MG/0.8 ML SYRINGE SUBCUT SCH ×2 (11:46→23:17)
[2016-04-20] MEDS ORDERED: SODIUM POLYSTYRENE SULFATE 15 GM/60 ML BOTTLE PO ONE (11:59)
--- NOTE | 2016-04-20 12:43 | Hospitalist Progress Note ---
Assessment and Plan (1) Acute and chronic respiratory failure ([id number]) Status: Acute Assessment and plan: Continue BiPAP overnight, albuterol inhalers. Appreciate pulmonary assistance start on PT today Current Visit: Yes Qualifiers: Respiratory failure complication: hypoxia and hypercapnia Qualified Code(s) : J96.21 - Acute and chronic respiratory failure with hypoxia; J96.22 - Acute and chronic respiratory failure with hypercapnia (2) Altered mental status, unspecified Status: Acute Assessment and plan: Resolved Likely was induced to elevated CO2 level Current Visit: Yes (3) Gout Status: Chronic Assessment and plan: Asymptomatic Continue home meds Current Visit: Yes (4) KOSTA (obstructive sleep apnea) Status: Chronic Assessment and plan: Continue BiPAP overnight with oxygen Weight management recommend Current Visit: Yes (5) Acute on chronic diastolic CHF (congestive heart failure) Status: Chronic Assessment and plan: No signs of fluid overload Cardiomegaly on chest x-ray Continue home medication Current Visit: No (6) History of DVT of lower extremity Status: Chronic Assessment and plan: Continue home dose of warfarin Current Visit: No (7) Hypertension Status: Chronic Assessment and plan: Blood pressure stable Continue home medications Current Visit: No (8) Medical non-compliance Status: Chronic Assessment and plan: Strongly recommended adherence to BiPAP treatment Current Visit: No (9) Morbid obesity Status: Acute Assessment and plan: Weight management Current Visit: No (10) UTI (urinary tract infection), bacterial Status: Acute Assessment and plan: UC- growing gram positive cocci , likely strep alpha (talked to [facility]) urine was collected by in and out cath final UC- pending gram + in urine is always descending infection from blood will repeat urine culture collect BCx2 Current Visit: Yes (11) Hyperkalemia Status: Acute Assessment and plan: K level 5.6 will give kayexelate 30 mg once repeat K level in am Current Visit: Yes Hospitalist: Subjective Interval history: 70 years old -[place] female who presented with altered mental status and acute hypercapnic respiratory failure. She was admitted to ICU. Here initial CO2 was significantly elevated. She was placed on BiPAP. She was found to have elevated ammonia level and GI was consulted in regards . Patient started on lactulose every 6 hours her chest x-ray was clear with mild cardiomegaly and small lung volumes. Patient was afebrile. Pulmonary was consulted regarding acute hypercapnic respiratory failure patient was placed on BiPAP. Patient was downgraded to the floor yesterday. Today: Patient is alert and oriented. Her urine culture grew gram-positive cocci, strep alpha hemolytic, final cultures pending. She is afebrile. WBC not elevated. Will repeat urine culture. Collect blood cultures 2. She was wearing BiPAP last night tolerated well. Exam - Constitutional Vitals: Period Temp Pulse Resp BP Sys/Arellano Pulse Ox Last 24 Hr 96.6 F-97.9 F 69-92 12-22 135-151/63-92 95-100 General appearance: over weight, morbidly obese, no normal weight - Head Head exam: Present: normal inspection, normocephalic, atraumatic - Eye Eye exam: Present: EOMI Pupils: Present: LORETO - ENT ENT exam: Present: normal exam - Neck Neck exam: Present: normal inspection - Respiratory Respiratory exam: Present: decreased breath sounds - Cardiovascular Cardiovascular exam: Present: regular rate and rhythm - GI/Abdominal GI/Abdominal exam: Present: normal bowel sounds, soft - Extremities Exam Extremities exam: Present: normal inspection, normal capillary refill - Neurological Exam Neurological exam: Present: alert, oriented X3 - Psychiatric Psychiatric exam: Present: normal affect, normal mood - Skin Skin exam: Present: normal color, warm, dry Results - Labs CBC & BMP: 04/20/16 02:28 04/20/16 02:28
--- NOTE | 2016-04-20 13:02 | Pulmonology Progress Note ---
Pulmonary - PN: Subj Interval history: The patient is a 70-year-old black lady with obesity and probably has some obstructive airways disease. She came in with lethargy and CO2 retention but is much better now. She did use BiPAP during the night but she is alert and sitting up in bed now. She feels like her breathing is doing little better. She still has some cough and wheeze but feels better. She is eating and quite alert now. Exam (Progress Note) - Constitutional Vitals: Period Temp Pulse Resp BP Sys/Arellano Pulse Ox Last 24 Hr 96.6 F-97.9 F 69-92 12-22 145-151/63-92 95-100 Exam: General appearance: no acute distress, morbidly obese, other (she is alert and in no distress.) - Head Head exam: Present: normal inspection, normocephalic - Eye Eye exam: Present: EOMI. Absent: scleral icterus - ENT ENT exam: Present: normal exam - Neck Neck exam: Present: normal inspection. Absent: lymphadenopathy, thyromegaly - Respiratory Respiratory exam: Present: She has fairly good breath sounds bilaterally and moving air better with only minimal rhonchi now. - Cardiovascular Cardiovascular exam: Present: regular rate and rhythm. Absent: gallop, JVD, systolic murmur - GI/Abdominal GI/Abdominal exam: Present: normal bowel sounds, soft, obese Absent: organomegaly, tenderness - Extremities Exam Extremities exam: Present: edema (she does have some brawny edema of the lower extremities.). Absent: calf tenderness - Neurological Exam Neurological exam: Present: alert, oriented X3, CN II-XII intact - Psychiatric Psychiatric exam: Present: normal affect - Skin Skin exam: Present: warm, dry Results - Labs CBC & BMP: 04/20/16 02:28 04/20/16 02:28 Assessment and Plan (1) Acute and chronic respiratory failure ([id number]) Status: Acute Assessment and plan: The patient likely has chronic CO2 retention and has had a mild exacerbation. This was probably due to medications although she likely does have some obstructive airways disease. She looks like she is better and she is tolerating her bronchodilator therapy. Current Visit: Yes Qualifiers: Respiratory failure complication: hypoxia and hypercapnia Qualified Code(s) : J96.21 - Acute and chronic respiratory failure with hypoxia; J96.22 - Acute and chronic respiratory failure with hypercapnia (2) Asthma Status: Acute Assessment and plan: The patient does have some wheezing and likely has some obstructive airways disease. We will continue with bronchodilator therapy. She does look like she is breathing better today. Current Visit: Yes (3) Type 2 diabetes mellitus Status: Acute Assessment and plan: Her hemoglobin A1c level was under 6 and her glucoses have been doing okay. Her glucose was 208 this morning. Current Visit: No (4) Morbid obesity Status: Acute Assessment and plan: The patient is extremely overweight and inactive. Current Visit: No (5) Altered mental status, unspecified Status: Acute Assessment and plan: Patient came in with a mild encephalopathy probably due to medications and her CO2 retention. She is probably back to baseline now. She is quite alert now. Current Visit: Yes (6) KOSTA (obstructive sleep apnea) Status: Chronic Assessment and plan: She has been using her BiPAP at night but she is noncompliant at home. Current Visit: Yes
[2016-04-20] MEDS: WARFARIN 3 MG TABLET PO SCH (17:00)
[2016-04-20] MEDS: GABAPENTIN 100 MG CAPSULE PO SCH (20:41)
[2016-04-21] MEDS: ALBUTEROL 1.25 MG/3 ML NEB RESP TX SCH ×3 (00:17→14:55)
[2016-04-21] MEDS: methylPREDNISolone SOD SUC 40 MG/1 ML VIAL IV SCH (00:49)
[2016-04-21 05:55] LABS: Calcium 8.9 MG/DL (8.5-10.1); Potassium 5.2 MMOL/L (3.5-5.1)
[2016-04-21] MEDS: LEVOTHYROXINE 50 MCG TABLET PO SCH (06:26)
[2016-04-21] MEDS: INSULIN LISPRO 100 UNIT/ML SUBCUT SCH ×2 (09:37→13:25)
[2016-04-21] MEDS: DILTIAZEM 60 MG TABLET PO SCH (10:00)
[2016-04-21] MEDS: PANTOPRAZOLE 40 MG TABLET PO SCH (10:00)
[2016-04-21] MEDS: GABAPENTIN 100 MG CAPSULE PO SCH (10:00)
[2016-04-21] MEDS: THEOPHYLLINE ER (24 HR) 400 MG CAPSULE PO SCH (10:00)
[2016-04-21] MEDS: ALLOPURINOL 300 MG TABLET PO SCH (10:00)
[2016-04-21] MEDS: ASPIRIN EC 81 MG TABLET PO SCH (10:00)
[2016-04-21] MEDS: ENOXAPARIN 120 MG/0.8 ML SYRINGE SUBCUT SCH (10:01)
--- NOTE | 2016-04-21 10:16 | Pulmonology Progress Note ---
Pulmonary - PN: Subj Interval history: The patient is a 70-year-old black lady with obesity and probably has some obstructive airways disease. She came in with lethargy and CO2 retention but is much better now. She is sitting up in bed eating breakfast and is quite alert now. She says she did use her BiPAP last night. She does feel like her breathing is much better. She is not having any problems now. Exam (Progress Note) - Constitutional Vitals: Period Temp Pulse Resp BP Sys/Arellano Pulse Ox Last 24 Hr 96.9 F-97.9 F 69-97 17-22 148-202/63-92 94-99 Exam: General appearance: no acute distress, morbidly obese, other (she is alert and in no distress. She is sitting up talking and eating breakfast.) - Head Head exam: Present: normal inspection, normocephalic - Eye Eye exam: Present: EOMI. Absent: scleral icterus - ENT ENT exam: Present: normal exam - Neck Neck exam: Present: normal inspection. Absent: lymphadenopathy, thyromegaly - Respiratory Respiratory exam: Present: She has fairly good breath sounds bilaterally and her lungs sound better now without any wheezing. - Cardiovascular Cardiovascular exam: Present: regular rate and rhythm. Absent: gallop, JVD, systolic murmur - GI/Abdominal GI/Abdominal exam: Present: normal bowel sounds, soft, obese Absent: organomegaly, tenderness - Extremities Exam Extremities exam: Present: edema (she does have some brawny edema of the lower extremities.). Absent: calf tenderness - Neurological Exam Neurological exam: Present: alert, oriented X3, CN II-XII intact - Psychiatric Psychiatric exam: Present: normal affect - Skin Skin exam: Present: warm, dry Results - Labs CBC & BMP: 04/20/16 02:28 04/21/16 04:37 Assessment and Plan (1) Acute and chronic respiratory failure ([id number]) Status: Acute Assessment and plan: The patient likely has chronic CO2 retention and has had a mild exacerbation. This was probably due to medications although she likely does have some obstructive airways disease. She has done well with treatment and is more alert now. She is breathing comfortably and her wheezing is better. Current Visit: Yes Qualifiers: Respiratory failure complication: hypoxia and hypercapnia Qualified Code(s) : J96.21 - Acute and chronic respiratory failure with hypoxia; J96.22 - Acute and chronic respiratory failure with hypercapnia (2) Asthma Status: Acute Assessment and plan: The patient does have some wheezing and likely has some obstructive airways disease. We will continue with bronchodilator therapy. She is much improved and can probably go home at any time. Current Visit: Yes (3) Type 2 diabetes mellitus Status: Acute Assessment and plan: Her hemoglobin A1c level was under 6 and her glucoses have been doing okay. Her glucose was 155 this morning. Current Visit: No (4) Morbid obesity Status: Acute Assessment and plan: The patient is extremely overweight and inactive. Current Visit: No (5) Altered mental status, unspecified Status: Acute Assessment and plan: Patient came in with a mild encephalopathy probably due to medications and her CO2 retention. She is probably back to baseline now. She is alert and talking and looks comfortable. Current Visit: Yes (6) KOSTA (obstructive sleep apnea) Status: Chronic Assessment and plan: She has been using her BiPAP at night but she is noncompliant at home. Current Visit: Yes
[2016-04-21] MEDS ORDERED: predniSONE 20 MG TABLET PO SCH (10:30)
--- NOTE | 2016-04-21 11:55 | Discharge Summary ---
Hospital Course - Hospital Course Hospital Course: 70 years old -[place] female who presented with altered mental status and acute hypercapnic respiratory failure. She was admitted to ICU. Here initial CO2 was significantly elevated. She was placed on BiPAP. She was found to have elevated ammonia level and GI was consulted in regards . Patient started on lactulose every 6 hours her chest x-ray was clear with mild cardiomegaly and small lung volumes. Patient was afebrile. Pulmonary was consulted regarding acute hypercapnic respiratory failure patient was placed on BiPAP. Pt is on O2 at home due to chronic respiratory failure and BIPAP but she is not compliant. Patient was downgraded to the floor on 04/19/16 in stable condition. She uses BIPAP every night here. Chest x ray revealed cardiomegaly. She was place on nebs and high dose of IV steroids. UA revealed UTI and she was treated for that. Urine culture revealed gram positive cocci likely strep alphalikely contamination. Her UC was repeated and today - no growth. K level was elevated and she received 1 dose of kayekelate . Today her level 5.2. She is on K supplements at home. I explaned her that she needs to hold on K supplements for a couple of weeks till she sees by her PCP. She tolerated PT/OT well. I consulted CM for home health for PT/OT. She will be dc today with 5 days of medrol pack and spiriva scripts. She needs to have f/u with her PCP in 1 -2 weeks Diagnosis - Discharge Diagnosis (1) Acute and chronic respiratory failure ([id number]) Status: Acute (2) Altered mental status, unspecified Status: Acute (3) Gout Status: Chronic (4) KOSTA (obstructive sleep apnea) Status: Chronic (5) Acute on chronic diastolic CHF (congestive heart failure) Status: Chronic (6) History of DVT of lower extremity Status: Chronic (7) Hypertension Status: Chronic (8) Medical non-compliance Status: Chronic (9) Morbid obesity Status: Acute (10) UTI (urinary tract infection), bacterial Status: Acute (11) Hyperkalemia Status: Acute Discharge Plan - Discharge Data Disposition: Disch To Home/Self Care Condition at Discharge: Stable Discharge Diet: advance to your usual diet Activity: resume usual activities as tolerated Hygiene: no restrictions Weight Bearing at Discharge: full weight bearing Driving: no restrictions Contact your physician if you experience:: fever over 101, Shortness of breath - Discharge Medications New Tiotropium Inhalation [Spiriva Handihaler] 18 mcg INH DAILY #1 box predniSONE TAB [PredniSONE] 20 mg PO DAILY #5 tablet Continue Aspirin EC Tab 81 mg PO DAILY tablet Allopurinol [Zyloprim] 300 mg PO DAILY #30 tablet Bumetanide Tab [Bumex Tab] 1 mg PO BID DIURETIC #60 tablet Diltiazem Tab [Cardizem Tab] 60 mg PO BID #60 tablet Glimepiride [Amaryl] 4 mg PO DAILY W/BREAKFAST #30 tablet Levothyroxine Tab [Synthroid Tab] 50 mcg PO DAILY@0700 #30 tablet Losartan Potassium 25 mg PO DAILY #30 tablet Metformin HCl [Metformin HCl ER] 500 mg PO BID #60 tab.er.24 Pantoprazole Tab [Protonix Tab] 40 mg PO DAILY #30 Warfarin Sodium 6 mg PO DAILY Zolpidem Tartrate 10 mg PO BEDTIME PRN PRN Reason: Sleep Acetaminophen with Codeine [Tylenol with Codeine #4 Tablet] 60 mg PO Q6HR PRN PRN Reason: Pain Discontinued Potassium Chloride [K-Tab ER] 10 meq PO DAILY #30 tablet.er - Follow Up or Referral - Forms/Instructions Additional Discharge Instructions: f/u with her PCP in 1-2 weeks Exam - Constitutional Vitals: Period Temp Pulse Resp BP Sys/Arellano Pulse Ox Last 24 Hr 96.9 F-97.9 F 69-97 17-22 148-202/63-92 94-99 General appearance: over weight, morbidly obese - Head Head exam: Present: normal inspection, normocephalic, atraumatic - Eye Eye exam: Present: EOMI Pupils: Present: LORETO - ENT ENT exam: Present: normal exam - Neck Neck exam: Present: normal inspection - Respiratory Respiratory exam: Present: decreased breath sounds - Cardiovascular Cardiovascular exam: Present: regular rate and rhythm - GI/Abdominal GI/Abdominal exam: Present: normal bowel sounds, soft - Extremities Exam Extremities exam: Present: normal inspection, normal capillary refill - Neurological Exam Neurological exam: Present: alert, oriented X3 - Psychiatric Psychiatric exam: Present: normal affect, normal mood - Skin Skin exam: Present: normal color, warm, dry Discharge Results Procedures and tests throughout hospitalization: Pending Orders 04/20/16 Urine Culture Stat 04/20/16 12:27 Blood Culture Stat Labs on day of discharge: Labs from last 24 hours 04/21/16 04/21/16 04/21/16 11:41 09:12 04:37 Sodium 143 Potassium 5.2 H Chloride 103 Carbon Dioxide 36 H Anion Gap 9.2 BUN 19 H Creatinine 1.20 H GFR Calculation 75 BUN/Creatinine Ratio 15.00 Glucose 157 H POC Glucose 183 H 155 H Calculated Osmolality 289.0 Calcium 8.9 04/20/16 04/20/16 04/19/16 18:35 15:47 11:37 Sodium Potassium Chloride Carbon Dioxide Anion Gap BUN Creatinine GFR Calculation BUN/Creatinine Ratio Glucose POC Glucose 225 H 180 H 125 H Calculated Osmolality Calcium 04/19/16 07:33 Sodium Potassium Chloride Carbon Dioxide Anion Gap BUN Creatinine GFR Calculation BUN/Creatinine Ratio Glucose POC Glucose 95 Calculated Osmolality Calcium Preliminary micro results at discharge 04/20/16 Unknown Urine Culture - Preliminary Urine,In and Out Cath No Growth at 24 hours. DS: Provider Date of admission: 04/17/16 18:48 Primary care physician: . No PCP Attending physician on admission: Brittani Feng MD Consults: 04/17/16 21:36 Consult to Physician [CONS] Routine Comment: liver failure Consulting Provider: Saeid Menchaca 04/17/16 21:44 Consult to Pharmacy [CONS] Routine Reason for Pharmacy Consult: Adjust Meds Renal Funct 04/18/16 10:21 Consult to Physician [CONS] Routine Comment: CO2 narcosis Consulting Provider: Consult to Specialist Group: Pulmonology When should Consulting Provider be notified: Now 04/20/16 12:34 Consult to Physical Therapy [CONS] Routine Reason for Physical Therapy: Evaluate and Treat 04/20/16 12:35 Consult to Occupational Therapy [CONS] Routine Reason for Occupational Therapy: Evaluate and Treat 04/21/16 11:54 Consult to Case Mgmt/Social Srvs [CONS] Routine Reason for Case Mgmt/Social Srvs: Home Health Other Consult Comment: PT/OT Discharging clinician: Araceli Sung MD Expected date of discharge: 04/21/16
[2016-04-21] MEDS: HYDROCORTISONE 25 MG SUPP RECTAL SCH (13:21)
[2016-04-21 18:02] VITALS: BP 148/66
== END 2016-04-21 18:25 | disposition home or self-care (01) | DRG 441 ==
LOC: EDUNIT# → EDBD → N.ED 13:36 → N.EDINP 18:48 → N.TELES 19:54 → N.CC 20:52 → N.4E 04-19 12:44
PROVIDERS: ADMIT Internal Medicine; ATTEND Internal Medicine

== ENCOUNTER 2016-07-03 12:39 | Inpatient (IN) ==
[2016-07-03] MEDS ORDERED: SODIUM CHLORIDE 0.9% 1,000 ML IV STA (13:38)
[2016-07-03 14:02] LABS: INR 1.4; PT Patient Result 14.7 SECS; Partial Thromboplastin Time 32.4 SECS (0-40)
[2016-07-03 14:08] LABS: Albumin 3.2 G/DL (3.4-5.0); Bilirubin,Total 0.4 MG/DL (0.2-1.0); Calcium 8.6 MG/DL (8.5-10.1); Osmolality,Calculated 285.7 MOS/KG (273-304); Potassium 5.2 MMOL/L (3.5-5.1); Total Protein 6.7 G/DL (6.4-8.3)
--- NOTE | 2016-07-03 14:12 | CT Report ---
CT brain Indication: Mental status change Comparison: 17 April 2016 Technique: Axial CT imaging of the brain is performed without contrast with 3 mm increments. Findings: No evidence of hemorrhage, mass mass effect midline shift or acute infarct seen. The brain parenchyma attenuation and differentiation appears within normal limits. The ventricles and cisterns are normal in caliber. No cranial or skull base abnormality is identified. Impression: No evidence of abnormality demonstrated. This CT exam was performed using one or more the following dose reduction techniques: Automated exposure control, adjustment of the MA and/or KV according to patient size, or use of iterative reconstruction technique. PROCEDURE INTERPRETED AT [facility] DEPARTMENT OF RADIOLOGY Final Report Signed by: Dr. Dejan Herman
[2016-07-03 14:14] LABS: Basophils % 0.5 % (0.0-0.8); Eosinophils # 0.1 10*3/uL (0.0-0.87); Eosinophils % 1.3 % (0.00-10.9); Hematocrit 39.3 VOL% (35.7-47.0); Hemoglobin 11.5 GM/DL (12.0-16.0); Immature Granulocytes % 0.6 %; Immature Granulocytes Absolute 0.05 #; Lymphocytes # 1.5 10*3/uL (1.4-4.0); Lymphocytes % 17.2 % (21.3-54.2); Mean Corpuscular Hemoglobin 30 PG (27-34); Mean Corpuscular Volume 102.1 FL (87-102); Mean Platelet Volume 9.8 FL (9.6-12.0); Monocytes # 0.4 10*3/uL (0.11-0.8); Monocytes % 4.7 % (1.7-12.7); Neutrophils # 6.5 10*3/uL (1.4-7.4); Neutrophils % 75.7 % (38.7-73.9); Platelet Count 232 T/CUMM (130-400); Red Blood Count 3.85 MC/CUMM (3.8-5.5); Red Cell Distribution Width 13.8 % (9.3-17.3); White Blood Count 8.6 T/CUMM (4-12)
--- NOTE | 2016-07-03 14:18 | Emergency Department Note ---
Marito Cristina Gwan, am scribing for, and in the presence of, Dru Best MD 14:04 . Estephania Cristina James D, MD, personally performed the services described in this documentation, ascribed by Julian Devi in my presence, and it is both accurate and complete 415 . Arrival - Arrival Chief Complaint: Altered Mental Status ED Nursing Triage Note: AMS, confusion this morning. BG was 143 on EMS arrival and family states hx of high ammonia levels. Started indocin on sunday. on O2 at home, 5L. also c/o "jerking" x3 weeks Mode of Arrival: Stretcher Source: Family, Old Records Reviewed, RN Notes Reviewed - History of Present Illness HPI Narrative: Pt is a 71 y/o female who presents to the ED by family for further evaluation of AMS and confusion with an onset this morning. Patient is a poor historian and is accompanied by family member. Family stated that pt last known well time was 0500 this morning. The continued to note that at 0930 this morning pt appeared confused and then became very drowsy/sleepy and difficult to arouse prompted their visit to the ED for further evaluation. EMS confirmed that en route pt's BG was 143. Family confirmed that pt was last seen in ED 06/30 due to low BS, that pt was dx with low ammonia levels 05/05 and that pt is on Coumadine due to hx of blood clots. Patient is followed by Dr. Orozco. Pt has a PMHx of HTN, thyroid disorder, NIDDM, dyslipidemia, cardiac catheterization, asthma, bronchitis and osteoporosis. Onset (ago): hour(s) Consistency: constant Severity: moderate Allergies/Adverse Reactions: Allergies Allergy/AdvReac Type Severity Reaction Status Date / Time IVP DYE Allergy Unknown/Unable Uncoded 11/13/14 17:11 to obtain Home Medications: Home Medications Medication Instructions Recorded Confirmed Type Allopurinol [Zyloprim] 300 mg PO DAILY #30 tablet 01/17/16 06/30/16 Rx Aspirin EC Tab 81 mg PO DAILY tablet 01/17/16 06/30/16 Rx Bumetanide Tab [Bumex Tab] 1 mg PO BID DIURETIC #60 tablet 01/17/16 06/30/16 Rx Diltiazem Tab [Cardizem Tab] 60 mg PO BID #60 tablet 01/17/16 06/30/16 Rx Glimepiride [Amaryl] 4 mg PO DAILY W/BREAKFAST #30 01/17/16 06/30/16 Rx tablet Levothyroxine Tab [Synthroid Tab] 50 mcg PO DAILY@0700 #30 tablet 01/17/1606/30 Rx Losartan Potassium 25 mg PO DAILY #30 tablet 01/17/16 06/30/16 Rx Metformin HCl [Metformin HCl ER] 500 mg PO BID #60 tab.er.24 01/17/16 06/30/16 Rx Pantoprazole Tab [Protonix Tab] 40 mg PO DAILY #30 01/17/16 06/30/16 Rx Warfarin Sodium 6 mg PO DAILY 01/21/16 06/30/16 History Zolpidem Tartrate 10 mg PO BEDTIME PRN 04/17/16 06/30/16 History Acetaminophen with Codeine 60 mg PO Q6HR PRN 04/20/16 06/30/16 History [Tylenol with Codeine #4 Tablet] Cyanocobalamin Inj [Vitamin B12 1,000 mcg IM Q30D 06/30/16 06/30/16 History Inj] Indomethacin Cap [Indocin Cap] 25 mg PO TID #30 capsule 06/30/16 Rx Potassium Chloride 10 meq PO DAILY 06/30/16 06/30/16 History Tiotropium Inhalation [Spiriva 18 mcg INH DAILY PRN 06/30/16 06/30/16 History Handihaler] Tizanidine HCl [Zanaflex] 2 mg PO TID 06/30/16 06/30/16 History Review of System - Review of System ROS unobtainable: due to mental status Medical,Surgical,& Family Hx - Medical History Cardio: History of: Hypertension Endocrine: History of: Diabetes Mellitus (NIDDM), Dyslipidemia, Thyroid Disorder Respiratory: History of: Asthma, Bronchitis, Obstructive Sleep Apnea Gastrointestinal: History of: GERD Musculoskeletal: History of: Osteoporosis Hematology: Comment Only: Clotting Problems (Yes; previous DVT) Reproductive: History of: Reproductive Cancer - Surgical History Cardiac Surgeries: Sugical HX of: Cardiac Catheterization Abdominal Surgeries: Surgical HX of: Cholecystectomy Reproductive Surgeries: Surgical HX of;: Hysterectomy - Family History Family History: Reports;: Family Cancer (father, 4 brothers, 1 sister), Family Diabetes (sister), Family Heart Disease (mother), Family Hypertension (father, mother) Denies;: Family Anesthesia Reaction, Family Psychiatric Problems, Family Stroke - Social History Smoking Status: Unknown if ever smoked Frequency of Alcohol Use: None Type of Drug Use: None Exam Physical Examination: GENERAL: This is a obese lethargic black female in no apparent distress. VITAL SIGNS: HEENT: Head is normocephalic and atraumatic. Pupils are equally round and reactive to light. Extraocular movement are intact. Oropharynx is benign with dry mucous membranes. Patient has active gag reflex. NECK: Neck is soft and supple without tenderness. There are no masses. There is no lymphadenopathy. LUNGS: Lungs are clear to auscultation bilaterally. Chest rises symmetrically. There is no chest wall tenderness. CV: Heart is regular rate and rhythm without murmurs, rubs, or gallops. ABDOMEN: Abdomen is soft, non-tender to palpation. There are no abnormal masses palpated. There is no organomegaly. Bowel sounds are present and active. SKIN: Skin is warm and dry. No rash. EXTREMITIES: Patient has full range of motion without tenderness. There is no pedal edema. NEUROLOGIC: Awake, alert, and oriented x4. Cranial nerves II through XII are grossly intact. There are no motorsensory deficits. PSYCHIATRIC: Normal affect. Normal mood. Vital Signs: Vital Signs Temperature 97.4 F L 07/03/16 12:40 Pulse Rate 84 07/03/16 14:00 Respiratory Rate 20 07/03/16 14:00 Blood Pressure 139/70 07/03/16 14:00 O2 Sat by Pulse Oximetry 97 07/03/16 14:00 Course - Consultations Consultation #1: Discussed with hospitalist. Patient will be admitted to their service. Time: 14:58 Results - Labs CBC & BMP: 07/03/16 12:45 07/03/16 12:45 Lab Results: I have reviewed the patients labs - EKG EKG results: interpreted by ERMD - Impressions EKG: Normal sinus rhythm with rate 80, normal ST-T waves, normal axis. - Diagnostic Findings Procedure: Chest x-ray: image reviewed by me (Cardiomegaly), CT: image reviewed by me, report reviewed by me (CT head: No acute intracranial lesion or hemorrhage.) Disposition Clinical Impression: Altered mental status Case discussed with: patient's family Disposition: Still a Patient
--- NOTE | 2016-07-03 14:18 | XRay Report ---
XR chest 1V portable Indication: Altered mental status Comparison: None available Findings: The heart and mediastinum are stable in size and configuration. The pulmonary vascularity is slightly increased with bilateral increased interstitial lung density. No other lung infiltrates, effusions, pneumothorax or other abnormality is demonstrated. Impression: Findings suggest mild cardiac decompensation. PROCEDURE INTERPRETED AT [facility] DEPARTMENT OF RADIOLOGY Final Report Signed by: Dr. Dejan Herman
--- NOTE | 2016-07-03 14:24 | EKG Report ---
Stationary ECG Study [facility] ER Test Date: 07/03/2016 2:23 PM Pat Name: KATHI PONCE Department: Room: Gender: F Fire Tender: : 1945 Requested by: Dru Naranjo Order Number: [id number] Reading MD: JOLIE MCFARLAND Intervals [place] Rate: 80 P: 67 NV: 142 QRS: -28 QRSD: 121 T: 61 QT: 378 QTc: 413 Interpretive Statements SINUS RHYTHM at 80 bpm Nonspecific interventricular conduction delay Poor R-wave progression Electronically Signed On 07-05-16 18:36:17 CDT by JOLIE MCFARLAND [email or web address]
[2016-07-03 14:45] LABS: Apearance,Urine CLEAR (Clear); Bilirubin,Urine Negative (Negative); Blood, Urine Small mg/dL (Negative); Glucose,Urine (UA) Negative (Negative); Ketones,Urine Negative (Negative); Mucus,Urine Occasional /LPF (Occasional); Nitrite,Urine Negative (Negative); Protein,Urine Negative; RBC,Urine 2 /HPF (0-4); Squamous Epithelial Cell,Urine Occasional /HPF (0-10); Urine Color Yellow (Yellow); Urine Specific Gravity 1.011 (1.001-1.035); Urine Urobilinogen < 2.0 EU/DL (0.2-1.0); WBC,Urine <1 /HPF (0-6)
[2016-07-03 14:55] LABS: Barbiturates Screen,Urine Negative (Negative); Benzodiazepines Screen,Urine Negative (Negative); Cannabinoid Screen,Urine Negative (Negative); Opiate Screen,Urine Positive (Negative); Phencyclidine Screen,Urine Negative (Negative)
[2016-07-03] MEDS ORDERED: ONDANSETRON 4 MG/2 ML VIAL IV PRN (14:59)
[2016-07-03 15:17] LABS: ABG Base Excess 4.8 MMOL/L (-2.5-2.5); ABG HCO3 35.7 MMOL/L (20-26); ABG Oxygen Saturation 88.2 % (95-100); ABG PO2 63.3 MM HG (80-95); ABG TCO2 38.5 MMOL/L (23-27)
[2016-07-03 15:21] LABS: ABG PCO2 92.9 MM HG (35-48)
[2016-07-03 15:22] LABS: ABG PH 7.202 (7.35-7.45)
[2016-07-03] MEDS ORDERED: ENOXAPARIN 40 MG/0.4 ML SYRINGE ONE (15:59)
[2016-07-03] MEDS: SODIUM CHLORIDE 0.45% 1,000 ML IV SCH (16:00)
[2016-07-03] MEDS: ENOXAPARIN 40 MG/0.4 ML SYRINGE SUBCUT SCH (16:01)
[2016-07-03] MEDS ORDERED: SODIUM POLYSTYRENE SULFATE 15 GM/60 ML BOTTLE PO ONE (16:24)
--- NOTE | 2016-07-03 16:35 | Hospitalist History & Physical ---
Assessment and Plan - Time spent with patient Time spent with patient: Greater than 30 minutes (1) Acute hypercapnic respiratory failure due to obstructive sleep apnea Status: Acute Assessment and plan: 71-year-old -[place] female with history of hypertension, diabetes, obstructive sleep apnea admitted by Dr. Morrell with altered mental status. Patient has acute respiratory acidosis with hypercapnia along with hyperkalemia and elevated ammonia levels. Patient will be admitted to ICU and started on BiPAP. She will be given Kayexalate and lactulose. Will hold all of her home medicines at this time until patient becomes more alert and awake. Consult pulmonary for her respiratory issues. All this is been discussed with Dr. Morrell. Further recommendations to follow. Current Visit: Yes (2) Morbid obesity Status: Acute Current Visit: No (3) Altered mental status, unspecified Status: Acute Current Visit: No (4) Hepatic encephalopathy Status: Acute Current Visit: No (5) KOSTA (obstructive sleep apnea) Status: Chronic Current Visit: No (6) Hyperkalemia Status: Acute Current Visit: No History of Present Illness Chief complaint: AMS History of present illness: Mrs. Littlejohn is a 71yo obese AAF w history of HTN, HL, DM, and KOSTA presenting to the ED by ambulance w altered mental status. pt's daughters and are present. they state she was in her normal state of health last at 4am. her said later in the morning she wouldnt wake up. they called an ambulance and practice administrator were able to wake her up enough to walk to the bathroom and get into ambulance. pt was in ED last sunday w low BS and her meds were adjusted. she was also admitted in late march w altered mental status and acute hypercapneic respiratory failure. she was placed on bipap and lactulose for elevated ammonia levels. as far as her family knows, she does neither one of these at home. ROS is unobtainable due to pts mental status. her family denies she complained of anything prior to going to bed last night. upon exam, pt is somnolent but will stir w sternal rub. she wouldnt open her eyes or speak. her blood gases are showing a respiratory acidosis w very high CO2 levels, elevated potassium and mildly elevated ammonia levels. her CT head and CXR are negative. this is all similar to her previous hospitalization. pts case was discussed w dr del cid, the ED physician and dr emmanuel the hospitalist and it was agreed pt would be admitted to the ICU for closer monitoring. Home Medications Medication Instructions Recorded Confirmed Type Allopurinol [Zyloprim] 300 mg PO DAILY #30 tablet 01/17/16 06/30/16 Rx Aspirin EC Tab 81 mg PO DAILY tablet 01/17/16 06/30/16 Rx Bumetanide Tab [Bumex Tab] 1 mg PO BID DIURETIC #60 tablet 01/17/16 06/30/16 Rx Diltiazem Tab [Cardizem Tab] 60 mg PO BID #60 tablet 01/17/16 06/30/16 Rx Glimepiride [Amaryl] 4 mg PO DAILY W/BREAKFAST #30 01/17/16 06/30/16 Rx tablet Levothyroxine Tab [Synthroid Tab] 50 mcg PO DAILY@0700 #30 tablet 01/17/1606/30 Rx Losartan Potassium 25 mg PO DAILY #30 tablet 01/17/16 06/30/16 Rx Metformin HCl [Metformin HCl ER] 500 mg PO BID #60 tab.er.24 01/17/16 06/30/16 Rx Pantoprazole Tab [Protonix Tab] 40 mg PO DAILY #30 01/17/16 06/30/16 Rx Warfarin Sodium 6 mg PO DAILY 01/21/16 06/30/16 History Zolpidem Tartrate 10 mg PO BEDTIME PRN 04/17/16 06/30/16 History Acetaminophen with Codeine 60 mg PO Q6HR PRN 04/20/16 06/30/16 History [Tylenol with Codeine #4 Tablet] Cyanocobalamin Inj [Vitamin B12 1,000 mcg IM Q30D 06/30/16 06/30/16 History Inj] Indomethacin Cap [Indocin Cap] 25 mg PO TID #30 capsule 06/30/16 Rx Potassium Chloride 10 meq PO DAILY 06/30/16 06/30/16 History Tiotropium Inhalation [Spiriva 18 mcg INH DAILY PRN 06/30/16 06/30/16 History Handihaler] Tizanidine HCl [Zanaflex] 2 mg PO TID 06/30/16 06/30/16 History Allergies Allergy/AdvReac Type Severity Reaction Status Date / Time IVP DYE Allergy Unknown/Unable Uncoded 11/13/14 17:11 to obtain Medical,Surgical,& Family Hx - Medical History Cardio: History of: Hypertension Endocrine: History of: Diabetes Mellitus (NIDDM), Dyslipidemia, Thyroid Disorder Respiratory: History of: Asthma, Bronchitis, Obstructive Sleep Apnea Gastrointestinal: History of: GERD Musculoskeletal: History of: Osteoporosis Hematology: Comment Only: Clotting Problems (Yes; previous DVT) Reproductive: History of: Reproductive Cancer - Surgical History Cardiac Surgeries: Sugical HX of: Cardiac Catheterization Abdominal Surgeries: Surgical HX of: Cholecystectomy Reproductive Surgeries: Surgical HX of;: Hysterectomy - Family History Family History: Reports;: Family Cancer (father, 4 brothers, 1 sister), Family Diabetes (sister), Family Heart Disease (mother), Family Hypertension (father, mother) Denies;: Family Anesthesia Reaction, Family Psychiatric Problems, Family Stroke - Social History Smoking Status: Unknown if ever smoked Frequency of Alcohol Use: None Type of Drug Use: None Marital Status: Lives With:: Spouse Review of systems: ROS could not be obtained due to pts mental status Exam - Constitutional Vitals: Period Temp Pulse Resp BP Sys/Arellano Pulse Ox Last 24 Hr 85 20 141/77 95 Exam: Constitutional System: No distress. [No] tremulousness. Head: Normocephalic, atraumatic. Ears, Nose and Throat System: No evidence of Otitis or Mastoiditis. No epistaxis or discharge Eyes System: Pupils equal, round, and reactive. Extraocular muscles intact. Neck: Supple, without adenopathy, [No] jugular venous distention. No thyromegaly , neck mass, or prior surgery apparent. Respiratory System: Chest [clear] to auscultation. Cardiovascular System: Heart with [regular] rate and rhythm. [No] murmur. GI System: Abdomen [soft]. [Normo]active bowel sounds present. Obese Musculoskeletal System: limbs with +2 pedal edema with left greater than right. unappreciable distal pulses due to edema. Neurological System: Unable to evaluate Psychiatric System: Unable to evaluate Results - Labs CBC & BMP: 07/03/16 12:45 07/03/16 12:45 Lab Results: I have reviewed the past 24 hour labs - EKG EKG results: interpreted by ERMD - Diagnostic Findings Procedure: Chest x-ray: report reviewed by me (Normal), CT: report reviewed by me (CT of head normal)
[2016-07-03] MEDS: LACTULOSE 20 GM/30 ML UDCUP PO SCH ×2 (19:16→21:56)
[2016-07-03] MEDS ORDERED: GLUCAGON 1 MG VIAL IM PRN (22:03)
[2016-07-03] MEDS ORDERED: DEXTROSE 50% 25 GM/50 ML VIAL IV PRN (22:03)
[2016-07-04] MEDS: LACTULOSE 20 GM/30 ML UDCUP PO SCH (01:35)
[2016-07-04 04:21] LABS: ABG Base Excess 6.4 MMOL/L (-2.5-2.5); ABG HCO3 34.6 MMOL/L (20-26); ABG PH 7.314 (7.35-7.45); ABG TCO2 36.8 MMOL/L (23-27); Pt O2 Delivery Device CPAP
[2016-07-04 04:22] LABS: ABG PCO2 69.7 MM HG (35-48)
[2016-07-04] MEDS: SODIUM CHLORIDE 0.45% 1,000 ML IV SCH ×3 (05:15→21:28)
[2016-07-04 06:47] LABS: Albumin 2.8 G/DL (3.4-5.0); Bilirubin,Total 0.9 MG/DL (0.2-1.0); Calcium 8.5 MG/DL (8.5-10.1); Magnesium 2.2 MG/DL (1.8-2.4); Osmolality,Calculated 289.8 MOS/KG (273-304); Potassium 4.8 MMOL/L (3.5-5.1); Risk Ratio 2.83; Thyroid Stimulating Hormone 2.05 uIU/ml (0.358-3.74); Total Protein 6.1 G/DL (6.4-8.3); VLDL CHOLESTEROL 23.6 MG/DL
[2016-07-04 08:11] LABS: Basophils % 0.3 % (0.0-0.8); Eosinophils # 0.1 10*3/uL (0.0-0.87); Eosinophils % 1.6 % (0.00-10.9); Hematocrit 39.5 VOL% (35.7-47.0); Hemoglobin 11.4 GM/DL (12.0-16.0); Immature Granulocytes % 0.5 %; Immature Granulocytes Absolute 0.04 #; Lymphocytes # 1.5 10*3/uL (1.4-4.0); Lymphocytes % 17.1 % (21.3-54.2); Mean Corpuscular HGB Conc 28.9 GM/DL (32-36); Mean Corpuscular Hemoglobin 30 PG (27-34); Mean Corpuscular Volume 103.1 FL (87-102); Mean Platelet Volume 9.8 FL (9.6-12.0); Monocytes # 0.5 10*3/uL (0.11-0.8); Monocytes % 5.3 % (1.7-12.7); Neutrophils # 6.6 10*3/uL (1.4-7.4); Neutrophils % 75.2 % (38.7-73.9); Platelet Count 202 T/CUMM (130-400); Red Blood Count 3.83 MC/CUMM (3.8-5.5); Red Cell Distribution Width 13.8 % (9.3-17.3); White Blood Count 8.7 T/CUMM (4-12)
[2016-07-04] MEDS: INSULIN REGULAR 100 UNIT/ML SUBCUT SCH ×3 (08:26→17:27)
[2016-07-04 08:30] LABS: Hypochromasia Slight; Platelet Estimate Adequate
--- NOTE | 2016-07-04 08:30 | Pulmonology Consult Note ---
History of Present Illness Chief complaint: Respiratory failure for oxygen and carbon dioxide History of present illness: Ms. Littlejohn is a 71 [id number] 139 kg black female whom I been asked see in pulmonary consultation for evaluation and treatment. This patient is followed by as an outpatient by Dr. Isaias Orozco This patient was admitted through the emergency room with shortness of breath and altered mental status. This patient is seen Dr. Ale Hartman in the past. She is used to the CPAP or BiPAP but she says the mask does not fit that she does not use it at home. Last night she uses CPAP of 12 with 2 L/min oxygen and did very well. The patient says she does not have a cough. She rarely has sputum. She denies hemoptysis. She denies solid dysphasia. She denies reflux. She denies tobacco and she denies exposure to tobacco. When I asked the patient why she has so much trouble with her lungs, she said that she really good question. I told her I am going to get Dr. Hartman to look at her again. My question is if she wore her CPAP at night and treat her obstructive sleep apnea, which she do better with pulmonary condition Allergies. IVP dye Home medicines. See below. Family has not brought home medicines N. I have also asked that they bring in her CPAP or BiPAP mask Hospital medicines. See below Past history. Recurrent respiratory failure for oxygen and carbon dioxide. Diabetes mellitus. Gout. Hyperlipidemia. Chronic Coumadin therapy. Thyroid disorder. Asthma. Obstructive sleep apnea. Chronic back pain. Osteoporosis. Has history of deep venous thrombophlebitis. Cholecystectomy. Hysterectomy. Social history. Does not smoke. Denies alcohol. Family history. Diabetes. High blood pressure. Family history of unknown cancer. Heart disease in her mother and high blood pressure and her mother and father. Chest x-ray. Normal. ABGs at admission showed a pH 7.202, PCO2 of 92.9, PO2 63.3 and a bicarbonate 35.7. This morning on FiO2 24% with the use of CPAP pH 7.314, PCO2 had dropped to 69.7 and PO2 was 71 with a bicarb of 34.6. Lab. Electrolytes normal. Admit creatinine was 1.5 and has fallen to 1.10 with a BUN of 24. Glucoses are normal. H&H 11.4/39.5 with increased red blood cell indices. Platelets are 202,000 white count on admission was 8600 with 76 segs 17 lymphs and 5 monos. Liver function tests are normal. Ammonia level is 49. Total protein and albumin low at 6.1 and 2.8 respectively. Thyroid function tests are normal. Microbiology. No positive results. Physical exam. Vital signs. See below Chest. Wheeze free. Heart. No gallop Psychiatric oriented 3. Neuro. Cranial nerves are intact. Long track motor functions intact. Neck. Symmetrical. No masses. No meningismus. Lymphatics. No submandibular cervical supraclavicular or epitrochlear adenopathy. Abdomen. Obese. Positive bowel sounds. No organomegaly palpated Lower extremities. Chronic venous stasis. Skin the face and hands shows no cancers infectious lesions no other areas of skin were examined. Venous exam. Neck upper extremities normal lower extremities show chronic venous stasis changes. Arterial. Carotid upstroke is fair hear no bruits neck is short and thick and this is difficult exam. Upper extremity pulses are palpable. Lower extremity pulses are nonpalpable. No evidence of lower extremity ischemia. The remainder of the physical exam is noncontributory. Impression. 1. Acute on chronic respiratory failure for oxygen and carbon dioxide. Etiology is undetermined. Some of this is probably related to body habitus. Suspect obstructive sleep apnea plays a part. Narcotics might be playing a part also. 2. Morbid obesity 3. Obstructive sleep apnea 4. Hypothyroidism. On replacement 5. Diabetes mellitus 6. Hyperlipidemia 7. Past history of deep venous thrombophlebitis 8. History of asthma which appears to be under good control 9. See past history 10. Elevated ammonia levels. Etiology undetermined Plan. 1. Consult Dr. Ale Rodarte. And sleep consultation. 2. We may consider Diamox in this patient depending on how she does. 3. Doppler venograms of the lower extremities. No past history of deep venous thrombophlebitis. Patient appears to be on chronic Coumadin therapy 4. Ultrasound of the liver and upper abdomen. Note elevated ammonia level 5. See orders. Home Medications Medication Instructions Recorded Confirmed Type Allopurinol [Zyloprim] 300 mg PO DAILY #30 tablet 01/17/16 07/04/16 Rx Aspirin EC Tab 81 mg PO DAILY tablet 01/17/16 07/04/16 Rx Diltiazem Tab [Cardizem Tab] 60 mg PO BID #60 tablet 01/17/16 07/04/16 Rx Glimepiride [Amaryl] 4 mg PO DAILY W/BREAKFAST #30 01/17/16 07/04/16 Rx tablet Levothyroxine Tab [Synthroid Tab] 50 mcg PO DAILY@0700 #30 tablet 01/17/1607/04 Rx Losartan Potassium 25 mg PO DAILY #30 tablet 01/17/16 07/04/16 Rx Pantoprazole Tab [Protonix Tab] 40 mg PO DAILY #30 01/17/16 07/04/16 Rx Zolpidem Tartrate 10 mg PO BEDTIME PRN 04/17/16 07/04/16 History Potassium Chloride 10 meq PO DAILY 06/30/16 07/04/16 History Albuterol Inhaler [Proventil 2 puff INH Q4HR 07/04/16 07/04/16 History Inhaler] Bumetanide Tab [Bumex Tab] 1 mg PO DAILY 07/04/16 07/04/16 History Gabapentin Cap/Tab [Neurontin 100 mg PO BID 07/04/16 07/04/16 History Cap/Tab] Pravastatin Sodium 20 mg PO DAILY 07/04/16 07/04/16 History Warfarin [Coumadin] 5 mg PO DAILY@1800 07/04/16 07/04/16 History Allergies Allergy/AdvReac Type Severity Reaction Status Date / Time IVP DYE Allergy Unknown/Unable Uncoded 11/13/14 17:11 to obtain Exam (Pulmonay) H&P - Constitutional Vitals: Period Temp Pulse Resp BP Sys/Arellano Pulse Ox Last 24 Hr 97.4 F-97.8 F 71-92 10-22 110-175/65-121 88-100 Medical,Surgical,& Family Hx - Medical History Cardio: History of: Hypertension Endocrine: History of: Diabetes Mellitus (NIDDM), Dyslipidemia, Thyroid Disorder Respiratory: History of: Asthma, Bronchitis, Obstructive Sleep Apnea Genitourinary: History of: Problems (hesitency) Gastrointestinal: History of: GERD Musculoskeletal: History of: Osteoporosis Hematology: History of: Clotting Problems (Yes; previous DVT) Reproductive: History of: Reproductive Cancer - Surgical History Cardiac Surgeries: Sugical HX of: Cardiac Catheterization Abdominal Surgeries: Surgical HX of: Cholecystectomy Reproductive Surgeries: Surgical HX of;: Hysterectomy - Family History Family History: Reports;: Family Cancer (father, 4 brothers, 1 sister), Family Diabetes (sister), Family Heart Disease (mother), Family Hypertension (father, mother) Denies;: Family Anesthesia Reaction, Family Psychiatric Problems, Family Stroke - Social History Smoking Status: Never smoker Frequency of Alcohol Use: None Type of Drug Use: None Results - Labs CBC & BMP: 07/04/16 05:18 07/04/16 05:18
--- NOTE | 2016-07-04 11:34 | Hospitalist Progress Note ---
Assessment and Plan - Time spent with patient Time spent with patient: Greater than 30 minutes (1) Acute hypercapnic respiratory failure due to obstructive sleep apnea Status: Acute Assessment and plan: CO2 levels are much improved. Current Visit: Yes (2) Diabetes mellitus Status: Acute Current Visit: Yes (3) Hypertension Status: Chronic Assessment and plan: Continue current management. Current Visit: No (4) CHF (congestive heart failure) Status: Acute Assessment and plan: Continue home medications. Current Visit: No (5) Gout Status: Chronic Assessment and plan: Continue home medications. Current Visit: No (6) History of DVT of lower extremity Status: Chronic Assessment and plan: Continue warfarin. Current Visit: No Hospitalist: Subjective Interval history: No complaints currently. Exam - Constitutional Vitals: Period Temp Pulse Resp BP Sys/Arellano Pulse Ox Last 24 Hr 96.8 F-97.8 F 71-92 10-22 110-175/65-121 88-100 General appearance: no acute distress, morbidly obese - Head Head exam: Present: normocephalic, atraumatic - Eye Eye exam: Present: EOMI Pupils: Present: LORETO - ENT ENT exam: Present: normal exam - Neck Neck exam: Present: normal inspection - Respiratory Respiratory exam: Present: clear to auscultation bilaterally. Absent: rhonchi, wheezes - Cardiovascular Cardiovascular exam: Present: regular rate and rhythm. Absent: gallop, rubs, systolic murmur - GI/Abdominal GI/Abdominal exam: Present: normal bowel sounds, soft. Absent: distended, firm , guarding, tenderness, rebound - Extremities Exam Extremities exam: Present: normal inspection. Absent: calf tenderness, edema Results - Labs CBC & BMP: 07/04/16 05:18 07/04/16 05:18 Lab Results: I have reviewed the past 24 hour labs
--- NOTE | 2016-07-04 12:43 | Sleep Medicine Consult ---
Assessment and Plan (1) KOSTA (obstructive sleep apnea) Status: Chronic Assessment and plan: I explained the importance of compliance with CPAP therapy and compliance with follow-up in the sleep clinic. Neither of us know the reason that she got lost to follow-up but this needs to be rectified. We will get her set up for reevaluation in the sleep clinic after discharge and go ahead and place her on auto titration CPAP. She did well on 13 cm last night and blood gases have much improved. I did explain the dangers of narcotic therapy when not compliant with CPAP. She needs to take that into consideration. I do think she needs re-titration at some point given the severity of her sleep apnea in the past and now she may have a component of overlap syndrome that includes obesity hypoventilation with chronic respiratory failure. I also explained that supplemental oxygen at night is no substitution for CPAP therapy for severe obstructive sleep apnea. Current Visit: No (2) Hypertension Status: Chronic Assessment and plan: The prevalence rate for obstructive sleep apnea patients with hypertension is 35 %. That rate can be as high as 80% in patients who require 4 or more medications for blood pressure control. Current Visit: No (3) Type 2 diabetes mellitus Status: Acute Assessment and plan: The prevalence rate for obstructive sleep apnea in patients with type 2 diabetes can be as high as 86%. Those patients with moderate to severe obstructive sleep apnea are at a greater risk for diabetic nephropathy and neuropathy. Compliance with CPAP therapy for these patients can lead to improvement in glycemic control and improvement in insulin sensitivity. Current Visit: No History of Present Illness Chief complaint: Obstructive sleep apnea History of present illness: Ms. Littlejohn is a 71 year old female known to me remotely from previous sleep evaluation in 2005. She had severe obstructive sleep apnea diagnosed at that time with an AHI of 92.8 and O2 desaturation to lows of 73%. She underwent CPAP titration and was placed on 20 cm of CPAP with 2 L/min of O2. She has not been seen in the sleep clinic for many years but has been able to continue to get CPAP supplies up until about 2 years ago. She has been on chronic oxygen therapy for the last 2-3 years without usage of her CPAP. We have no record of clinic notes since her sleep study from 2005. She is had some weight loss since her original sleep study by her report and has developed problems with diabetes and is followed by Dr. Orozco. She was admitted on this occasion with decreased level of consciousness and found to have acute and chronic respiratory failure. Urine drug screen was positive for opiates and she does take Tylenol #4 but states that she had taken no extra doses prior to her admission. Home Medications Medication Instructions Recorded Confirmed Type Allopurinol [Zyloprim] 300 mg PO DAILY #30 tablet 01/17/16 07/04/16 Rx Aspirin EC Tab 81 mg PO DAILY tablet 01/17/16 07/04/16 Rx Diltiazem Tab [Cardizem Tab] 60 mg PO BID #60 tablet 01/17/16 07/04/16 Rx Glimepiride [Amaryl] 4 mg PO DAILY W/BREAKFAST #30 01/17/16 07/04/16 Rx tablet Levothyroxine Tab [Synthroid Tab] 50 mcg PO DAILY@0700 #30 tablet 01/17/1607/04 Rx Losartan Potassium 25 mg PO DAILY #30 tablet 01/17/16 07/04/16 Rx Pantoprazole Tab [Protonix Tab] 40 mg PO DAILY #30 01/17/16 07/04/16 Rx Zolpidem Tartrate 10 mg PO BEDTIME PRN 04/17/16 07/04/16 History Potassium Chloride 10 meq PO DAILY 06/30/16 07/04/16 History Albuterol Inhaler [Proventil 2 puff INH Q4HR 07/04/16 07/04/16 History Inhaler] Bumetanide Tab [Bumex Tab] 1 mg PO DAILY 07/04/16 07/04/16 History Gabapentin Cap/Tab [Neurontin 100 mg PO BID 07/04/16 07/04/16 History Cap/Tab] Pravastatin Sodium 20 mg PO DAILY 07/04/16 07/04/16 History Warfarin [Coumadin] 5 mg PO DAILY@1800 07/04/16 07/04/16 History Allergies Allergy/AdvReac Type Severity Reaction Status Date / Time IVP DYE Allergy Unknown/Unable Uncoded 11/13/14 17:11 to obtain Review of systems: Otherwise unremarkable from a sleep medicine standpoint. Exam (Pulmonay) H&P - Constitutional Vitals: Period Temp Pulse Resp BP Sys/Arellano Pulse Ox Last 24 Hr 96.8 F-97.8 F 71-92 10-22 110-175/65-121 88-100 Exam: She is alert and responsive. She answers all questions appropriately. Pupils equal round reactive to light and accommodation. Movements intact. Oropharynx with a class IV Mallampati exam. Neck is supple without adenopathy or thyromegaly. No supraclavicular adenopathy is noted. Chest with symmetrical breath sounds without focal wheeze, rhonchi, or rales. Cardiac exam reveals a regular rhythm without murmur or gallop. Abdomen obese nontender without palpable hepatosplenomegaly or mass. Extremities without significant edema or clubbing. Neurologically, she is grossly intact. She moves all extremities with good strength. Medical,Surgical,& Family Hx - Medical History Cardio: History of: Hypertension Endocrine: History of: Diabetes Mellitus (NIDDM), Dyslipidemia, Thyroid Disorder Respiratory: History of: Asthma, Bronchitis, Obstructive Sleep Apnea Genitourinary: History of: Problems (hesitency) Gastrointestinal: History of: GERD Musculoskeletal: History of: Osteoporosis Hematology: History of: Clotting Problems (Yes; previous DVT) Reproductive: History of: Reproductive Cancer - Surgical History Cardiac Surgeries: Sugical HX of: Cardiac Catheterization Abdominal Surgeries: Surgical HX of: Cholecystectomy Reproductive Surgeries: Surgical HX of;: Hysterectomy - Family History Family History: Reports;: Family Cancer (father, 4 brothers, 1 sister), Family Diabetes (sister), Family Heart Disease (mother), Family Hypertension (father, mother) Denies;: Family Anesthesia Reaction, Family Psychiatric Problems, Family Stroke - Social History Smoking Status: Never smoker Frequency of Alcohol Use: None Type of Drug Use: None Results - Labs CBC & BMP: 07/04/16 05:18 07/04/16 05:18 Lab Results: I have reviewed the past 24 hour labs Labs: TSH was normal. Urine drug screen positive for opiates.
--- NOTE | 2016-07-04 12:47 | Pulmonology Consult Note ---
History of Present Illness History of present illness: Ms. Littlejohn is a 71 year old female Home Medications Medication Instructions Recorded Confirmed Type Allopurinol [Zyloprim] 300 mg PO DAILY #30 tablet 01/17/16 07/04/16 Rx Aspirin EC Tab 81 mg PO DAILY tablet 01/17/16 07/04/16 Rx Diltiazem Tab [Cardizem Tab] 60 mg PO BID #60 tablet 01/17/16 07/04/16 Rx Glimepiride [Amaryl] 4 mg PO DAILY W/BREAKFAST #30 01/17/16 07/04/16 Rx tablet Levothyroxine Tab [Synthroid Tab] 50 mcg PO DAILY@0700 #30 tablet 01/17/1607/04 Rx Losartan Potassium 25 mg PO DAILY #30 tablet 01/17/16 07/04/16 Rx Pantoprazole Tab [Protonix Tab] 40 mg PO DAILY #30 01/17/16 07/04/16 Rx Zolpidem Tartrate 10 mg PO BEDTIME PRN 04/17/16 07/04/16 History Potassium Chloride 10 meq PO DAILY 06/30/16 07/04/16 History Albuterol Inhaler [Proventil 2 puff INH Q4HR 07/04/16 07/04/16 History Inhaler] Bumetanide Tab [Bumex Tab] 1 mg PO DAILY 07/04/16 07/04/16 History Gabapentin Cap/Tab [Neurontin 100 mg PO BID 07/04/16 07/04/16 History Cap/Tab] Pravastatin Sodium 20 mg PO DAILY 07/04/16 07/04/16 History Warfarin [Coumadin] 5 mg PO DAILY@1800 07/04/16 07/04/16 History Allergies Allergy/AdvReac Type Severity Reaction Status Date / Time IVP DYE Allergy Unknown/Unable Uncoded 11/13/14 17:11 to obtain Exam (Pulmonay) H&P - Constitutional Vitals: Period Temp Pulse Resp BP Sys/Arellano Pulse Ox Last 24 Hr 96.8 F-97.8 F 71-92 10-22 110-175/65-121 88-100 Medical,Surgical,& Family Hx - Medical History Cardio: History of: Hypertension Endocrine: History of: Diabetes Mellitus (NIDDM), Dyslipidemia, Thyroid Disorder Respiratory: History of: Asthma, Bronchitis, Obstructive Sleep Apnea Genitourinary: History of: Problems (hesitency) Gastrointestinal: History of: GERD Musculoskeletal: History of: Osteoporosis Hematology: History of: Clotting Problems (Yes; previous DVT) Reproductive: History of: Reproductive Cancer - Surgical History Cardiac Surgeries: Sugical HX of: Cardiac Catheterization Abdominal Surgeries: Surgical HX of: Cholecystectomy Reproductive Surgeries: Surgical HX of;: Hysterectomy - Family History Family History: Reports;: Family Cancer (father, 4 brothers, 1 sister), Family Diabetes (sister), Family Heart Disease (mother), Family Hypertension (father, mother) Denies;: Family Anesthesia Reaction, Family Psychiatric Problems, Family Stroke - Social History Smoking Status: Never smoker Frequency of Alcohol Use: None Type of Drug Use: None Results - Labs CBC & BMP: 07/04/16 05:18 07/04/16 05:18
[2016-07-04] MEDS: BUMETANIDE 1 MG TABLET PO SCH (12:48)
[2016-07-04] MEDS: LOSARTAN 25 MG TABLET PO SCH (12:48)
[2016-07-04] MEDS: DILTIAZEM 60 MG TABLET PO SCH ×2 (12:49→21:19)
[2016-07-04] MEDS: ASPIRIN EC 81 MG TABLET PO SCH (12:49)
[2016-07-04] MEDS: ALLOPURINOL 300 MG TABLET PO SCH (12:49)
[2016-07-04] MEDS: GLIMEPIRIDE 4 MG TABLET PO SCH (12:49)
[2016-07-04] MEDS: PRAVASTATIN 20 MG TABLET PO SCH (12:49)
--- NOTE | 2016-07-04 13:58 | Ultrasound Report ---
Venous Doppler ultrasound bilateral lower extremities Indication: Edema Comparison: None available Findings: No evidence of echogenic, noncompressible thrombus seen in the visualized veins of the extremities. Color Doppler venous waveform pattern is within normal limits. Impression: No evidence of deep venous thrombosis. Ultrasound images stored and captured. PROCEDURE INTERPRETED AT [facility] ([facility] DEPARTMENT OF RADIOLOGY Final Report Signed by: Dr. Dejan Herman
--- NOTE | 2016-07-04 14:48 | Ultrasound Report ---
Exam: US liver Date: 07/04/2016 12:55 PM Comparison: 04/18/2016 Indication: Elevated ammonia level Technique:[Multiple transabdominal real-time scans were obtained of the right upper quadrant. Color-flow scans were obtained. Ultrasound images were captured and stored.] Findings: Prior cholecystectomy. CBD is normal in size measuring 6 mm. The liver is normal in size with no definite masses. Right kidney measures 110 mm in length with no masses or hydronephrosis. The visualized pancreas and aorta have an unremarkable appearance. Portions of pancreas, aortic bifurcation, and IVC are of scattered bowel gas. Color flow documented in the portal vein. Impression: Status post cholecystectomy. CBD is at the upper limits of normal in size. No definite right upper quadrant pathology is identified. The exam is limited by bowel gas. PROCEDURE INTERPRETED AT [facility] DEPARTMENT OF RADIOLOGY Final Report Signed by: Dr. Tran Schroeder
[2016-07-04] MEDS: ENOXAPARIN 40 MG/0.4 ML SYRINGE SUBCUT SCH (15:25)
[2016-07-04] MEDS: WARFARIN 5 MG TABLET PO SCH (17:59)
[2016-07-04] MEDS: GABAPENTIN 100 MG CAPSULE PO SCH (21:20)
[2016-07-05] MEDS: INSULIN REGULAR 100 UNIT/ML SUBCUT SCH ×5 (03:35→20:23)
[2016-07-05 04:48] LABS: ABG Base Excess 6.9 MMOL/L (-2.5-2.5); ABG HCO3 30.6 MMOL/L (20-26); ABG Oxygen Saturation 91.3 % (95-100); ABG PCO2 55.5 MM HG (35-48); ABG PH 7.388 (7.35-7.45); ABG PO2 62.4 MM HG (80-95); ABG TCO2 30.1 MMOL/L (23-27); Allen Test Positive
[2016-07-05 06:42] LABS: Basophils % 0.3 % (0.0-0.8); Eosinophils # 0.2 10*3/uL (0.0-0.87); Eosinophils % 1.8 % (0.00-10.9); Hematocrit 36.9 VOL% (35.7-47.0); Immature Granulocytes % 0.4 %; Immature Granulocytes Absolute 0.04 #; Lymphocytes # 2.2 10*3/uL (1.4-4.0); Lymphocytes % 21.4 % (21.3-54.2); Mean Corpuscular HGB Conc 29.8 GM/DL (32-36); Mean Corpuscular Hemoglobin 29 PG (27-34); Mean Corpuscular Volume 98.7 FL (87-102); Mean Platelet Volume 9.4 FL (9.6-12.0); Monocytes # 0.4 10*3/uL (0.11-0.8); Monocytes % 4.3 % (1.7-12.7); Neutrophils # 7.2 10*3/uL (1.4-7.4); Neutrophils % 71.8 % (38.7-73.9); Platelet Count 216 T/CUMM (130-400); Red Blood Count 3.74 MC/CUMM (3.8-5.5); Red Cell Distribution Width 13.6 % (9.3-17.3); White Blood Count 10.1 T/CUMM (4-12)
[2016-07-05 06:50] LABS: INR 1.1; PT Patient Result 12.2 SECS
[2016-07-05] MEDS: LEVOTHYROXINE 50 MCG TABLET PO SCH (06:55)
[2016-07-05 07:19] LABS: Calcium 8.3 MG/DL (8.5-10.1); Osmolality,Calculated 285.1 MOS/KG (273-304); Potassium 4.6 MMOL/L (3.5-5.1)
--- NOTE | 2016-07-05 08:13 | XRay Report ---
XR chest 1V portable Indication: Shortness of breath Comparison: 03 July 2016 Findings: The heart and mediastinum are normal in size and configuration. The pulmonary vascularity is normal in caliber. No lung infiltrates, effusions, pneumothorax or other abnormality is demonstrated. Impression: No acute cardiopulmonary disease. PROCEDURE INTERPRETED AT [facility] DEPARTMENT OF RADIOLOGY Final Report Signed by: Dr. Dejan Herman
[2016-07-05] MEDS: SODIUM CHLORIDE 0.45% 1,000 ML IV SCH ×2 (08:22→17:22)
[2016-07-05] MEDS: BUMETANIDE 1 MG TABLET PO SCH (09:22)
[2016-07-05] MEDS: GLIMEPIRIDE 4 MG TABLET PO SCH (09:22)
[2016-07-05] MEDS: DILTIAZEM 60 MG TABLET PO SCH ×2 (09:22→20:21)
[2016-07-05] MEDS: ALLOPURINOL 300 MG TABLET PO SCH (09:22)
[2016-07-05] MEDS: LOSARTAN 25 MG TABLET PO SCH (09:22)
[2016-07-05] MEDS: PRAVASTATIN 20 MG TABLET PO SCH (09:22)
[2016-07-05] MEDS: GABAPENTIN 100 MG CAPSULE PO SCH ×2 (09:22→20:21)
[2016-07-05] MEDS: ASPIRIN EC 81 MG TABLET PO SCH (09:22)
--- NOTE | 2016-07-05 10:56 | Pulmonology Progress Note ---
Pulmonary - PN: Subj Interval history: This is a 71-year-old black female whom I saw in pulmonary consultation 2016. My impressions were. 1. Acute on chronic respiratory failure for oxygen and carbon dioxide. Etiology is undetermined. Some of this is probably related to body habitus. Suspect obstructive sleep apnea plays a part. Narcotics might be playing a part also. 2. Morbid obesity 3. Obstructive sleep apnea 4. Hypothyroidism. On replacement 5. Diabetes mellitus 6. Hyperlipidemia 7. Past history of deep venous thrombophlebitis 8. History of asthma which appears to be under good control 9. See past history 10. Elevated ammonia levels. Etiology undetermined 07/05/2016. Patient's done well from a pulmonary standpoint. Chest x-ray shows no infiltrates and no heart failure. ABGs have improved. On FiO2 28% she has a pH of 7.388, PCO2 55.5, PO2 62.4 and a bicarb of 30.6. Electrolytes are normal. Creatinine is 1.2. BUN is 20. CBC is stable. There are no positive cultures. Patient has been seen in sleep consultation by Dr. Ale Hartman. I appreciate his help. Labs been reviewed. Medicines have been reviewed. X- rays of been reviewed. Doppler venograms. 07/04/2016. No evidence of deep venous thrombophlebitis. Ultrasound of the liver. 07/04/2016. Previous cholecystectomy. Common bile duct is upper limits of normal. No definite pathology is seen. Physical exam. Vital signs. See below Psychiatric. Oriented 3. Neurologic. Cranial nerves are intact. Long track motor functions intact Face is symmetrical. Lips and tongue are normal. Neck. Symmetrical. No meningismus. Lymphatics. No submandibular cervical or supraclavicular adenopathy. No epitrochlear adenopathy. Chest is clear Heart. No gallop Abdomen. Massively obese. Positive bowel sounds Lower extremities. Nothing to suggest deep venous thrombophlebitis. The remainder the physical exam is noncontributory. Plan. 1. Continue present therapy. Keep FiO2 low. 2. We may consider Diamox in this patient depending on how she does. 3. Chest x-ray and ABGs in the morning Exam (Progress Note) - Constitutional Vitals: Period Temp Pulse Resp BP Sys/Arellano Pulse Ox Last 24 Hr 97.1 F-97.6 F 64-100 11-26 136-205/68-129 89-95 Results - Labs CBC & BMP: 07/05/16 06:34 07/05/16 06:34
--- NOTE | 2016-07-05 11:25 | Hospitalist Progress Note ---
Assessment and Plan - Time spent with patient Time spent with patient: Greater than 30 minutes (1) Acute hypercapnic respiratory failure due to obstructive sleep apnea Status: Acute Assessment and plan: Improved. Appreciate pulmonary's assistance. Appreciate sleep Current Visit: Yes (2) Diabetes mellitus Status: Acute Current Visit: Yes (3) Hypertension Status: Chronic Assessment and plan: Continue current management. Current Visit: No (4) CHF (congestive heart failure) Status: Acute Assessment and plan: Continue home medications. Current Visit: No (5) Gout Status: Chronic Assessment and plan: Continue home medications. Current Visit: No (6) History of DVT of lower extremity Status: Chronic Assessment and plan: Continue warfarin. Current Visit: No Hospitalist: Subjective Interval history: Patient states she feels better this morning. Exam - Constitutional Vitals: Period Temp Pulse Resp BP Sys/Arellano Pulse Ox Last 24 Hr 97.1 F-97.6 F 64-100 11-26 136-205/68-129 89-95 General appearance: no acute distress, morbidly obese - Head Head exam: Present: normocephalic, atraumatic - Eye Eye exam: Present: EOMI Pupils: Present: LORETO - ENT ENT exam: Present: normal exam - Neck Neck exam: Present: normal inspection - Respiratory Respiratory exam: Present: clear to auscultation bilaterally. Absent: rhonchi, wheezes - Cardiovascular Cardiovascular exam: Present: regular rate and rhythm. Absent: gallop, rubs, systolic murmur - GI/Abdominal GI/Abdominal exam: Present: normal bowel sounds, soft. Absent: distended, firm , guarding, tenderness, rebound - Extremities Exam Extremities exam: Present: normal inspection. Absent: calf tenderness, edema Results - Labs CBC & BMP: 07/05/16 06:34 07/05/16 06:34 Lab Results: I have reviewed the past 24 hour labs
[2016-07-05] MEDS: ENOXAPARIN 40 MG/0.4 ML SYRINGE SUBCUT SCH (15:59)
[2016-07-05] MEDS ORDERED: LACTULOSE 20 GM/30 ML UDCUP PO PRN (16:31)
[2016-07-05] MEDS: WARFARIN 5 MG TABLET PO SCH (17:21)
--- NOTE | 2016-07-05 17:30 | Sleep Medicine Progress Note ---
Assessment and Plan (1) KOSTA (obstructive sleep apnea) Status: Chronic Assessment and plan: Continue with auto CPAP for now and will order her a CPAP machine or discharge if her insurance will purchase and if not, set her up for diagnostic sleep study due for feel there insurance requirements. Patient will follow up in the sleep clinic with us. Thank you for this consult. Current Visit: No (2) Hypertension Status: Chronic Current Visit: No (3) Type 2 diabetes mellitus Status: Acute Current Visit: No Sleep Medicine Subjective Interval history: Patient did very well on CPAP last night. She slept 7 hours and 23 minutes with CPAP and had a best pressure of 14 cm with an average AHI of 2.8. She did have some leak with her current mask. She did do much better with CPAP. We will need to see if she needs reevaluation for her sleep apnea and see if we can prescribe another CPAP machine for her to utilize at discharge. Exam (Progress Note) - Constitutional Vitals: Period Temp Pulse Resp BP Sys/Arellano Pulse Ox Last 24 Hr 96.5 F-97.6 F 74-88 15-20 142-193/68-105 90-92 Exam: She is alert and responsive in no acute distress. HEENT unremarkable neck supple without adenopathy or thyromegaly. Chest with good air movement no focal wheeze rhonchi or rales. Cardiac exam reveals a regular rhythm without murmur or gallop. Abdomen soft nontender without palpable hepatosplenomegaly or mass. Extremities are without clubbing, cyanosis, or edema. Neurologically , she is grossly intact. Results - Labs CBC & BMP: 07/05/16 06:34 07/05/16 06:34 Lab Results: I have reviewed the past 24 hour labs
[2016-07-06 02:56] LABS: ABG Base Excess 5.8 MMOL/L (-2.5-2.5); ABG HCO3 29.6 MMOL/L (20-26); ABG Oxygen Saturation 93.3 % (95-100); ABG PCO2 56.7 MM HG (35-48); ABG PO2 71.1 MM HG (80-95); ABG TCO2 29.3 MMOL/L (23-27); Allen Test Positive; Pt O2 Delivery Device BIPAP
[2016-07-06 04:55] LABS: INR 1.1
[2016-07-06] MEDS: LEVOTHYROXINE 50 MCG TABLET PO SCH (06:25)
[2016-07-06] MEDS: INSULIN REGULAR 100 UNIT/ML SUBCUT SCH ×4 (08:40→22:16)
--- NOTE | 2016-07-06 09:25 | XRay Report ---
Exam: XR chest 1V portable Date: 07/06/2016 4:00 AM Indication: Prior extubation, shortness of breath Comparison: 07/05/2016 Technical: AP portable Findings: Mild cardiomegaly present. Mild cardiomegaly. Lateral marginal osteophytes are present. No obvious consolidating infiltrates or effusions or pneumothorax clearly seen. Oxygen tubing superimposes exam. Impression: 1. Cardiomegaly without overt decompensation 2. No obvious consolidating infiltrates or effusions PROCEDURE INTERPRETED AT [facility] DEPARTMENT OF RADIOLOGY Final Report Signed by: Dr. Saeid Mancuso
[2016-07-06] MEDS: GLIMEPIRIDE 4 MG TABLET PO SCH (09:27)
[2016-07-06] MEDS: ASPIRIN EC 81 MG TABLET PO SCH (10:03)
[2016-07-06] MEDS: BUMETANIDE 1 MG TABLET PO SCH (10:03)
[2016-07-06] MEDS: ALLOPURINOL 300 MG TABLET PO SCH (10:03)
[2016-07-06] MEDS: GABAPENTIN 100 MG CAPSULE PO SCH ×2 (10:04→22:39)
[2016-07-06] MEDS: PRAVASTATIN 20 MG TABLET PO SCH (10:04)
[2016-07-06] MEDS: DILTIAZEM 60 MG TABLET PO SCH ×2 (10:05→22:39)
[2016-07-06] MEDS: LOSARTAN 25 MG TABLET PO SCH (10:05)
[2016-07-06] MEDS: SODIUM CHLORIDE 0.45% 1,000 ML IV SCH ×2 (11:13→13:11)
--- NOTE | 2016-07-06 11:30 | Pulmonology Progress Note ---
Pulmonary - PN: Subj Interval history: Jamison Dasilva, ANP-BC, GNP-BC, acting as scribe for Dr. Saeid Valdes This is a 71-year-old black female who we saw in initial pulmonary consultation on 07/04/2016. At that time, our impressions were: 1. Acute on chronic respiratory failure for oxygen and carbon dioxide. Etiology is undetermined. Some of this is probably related to body habitus. Suspect obstructive sleep apnea plays a part. Narcotics might be playing a part also. 2. Morbid obesity 3. Obstructive sleep apnea 4. Hypothyroidism. On replacement 5. Diabetes mellitus 6. Hyperlipidemia 7. Past history of deep venous thrombophlebitis 8. History of asthma which appears to be under good control 9. See past history 10. Elevated ammonia levels. Etiology undetermined 07/05/2016. Patient's done well from a pulmonary standpoint. Chest x-ray shows no infiltrates and no heart failure. ABGs have improved. On FiO2 28% she has a pH of 7.388, PCO2 55.5, PO2 62.4 and a bicarb of 30.6. Electrolytes are normal. Creatinine is 1.2. BUN is 20. CBC is stable. There are no positive cultures. Patient has been seen in sleep consultation by Dr. Alix Hartman. I appreciate his help. Labs been reviewed. Medicines have been reviewed. X- rays of been reviewed. Doppler venograms. 07/04/2016. No evidence of deep venous thrombophlebitis. Ultrasound of the liver. 07/04/2016. Previous cholecystectomy. Common bile duct is upper limits of normal. No definite pathology is seen. 07/06/16. The patient was seen today along with her nurse Violeta. She was sitting up on the side of the bed breathing comfortably. She has been seen in sleep consultation by Dr. Hartman. The patient states she did wear her mask last night and did well with the exception of having frequent trips to the bathroom to urinate. Overall, her respiratory status is markedly improved. Urine is growing a gram-negative bharath. Identification and sensitivities are pending. We will defer management of this to her attending physician. Medications have been reviewed. We made no changes today. Labs have been reviewed. INR is 1.1. No other new labs were drawn today. ABGs on an FiO2 28% show pH is 7.373, PCO2 56.7, PO2 71.1, bicarb 29.6, and oxygen saturation 93.3%. Exam (Progress Note) - Constitutional Vitals: Period Temp Pulse Resp BP Sys/Arellano Pulse Ox Last 24 Hr 96.5 F-97.6 F 74-81 18-22 169-193/82-96 90-96 Exam: Chest is clear Heart no gallop Abdomen is massively obese, but nontender and nondistended; bowel sounds are positive 4 Lower extremities with nothing to suggest acute deep venous thrombophlebitis Psychiatric oriented 3 Neurologic long-term motor function is intact Plan: Patient is markedly improved from a pulmonary standpoint. We will sign off. Please reconsult as needed. Results - Labs CBC & BMP: 07/05/16 06:34 07/05/16 06:34
[2016-07-06] MEDS ORDERED: SKIN HEALING OINT (AQUAPHOR) 50 GM TUBE TOP PRN (12:54)
--- NOTE | 2016-07-06 13:01 | Sleep Medicine Progress Note ---
Assessment and Plan (1) KOSTA (obstructive sleep apnea) Status: Chronic Assessment and plan: Patient did qualify for CPAP based on old sleep study results. We will schedule her for follow-up in sleep clinic for compliance. Thank you for this consult. Current Visit: No (2) Hypertension Status: Chronic Current Visit: No (3) Type 2 diabetes mellitus Status: Acute Current Visit: No Sleep Medicine Subjective Interval history: Patient continues to do well on CPAP and seems to be getting better each day. She has had a order for CPAP machine and supplies [facility] to [facility] That order has been seen by the a.m. and she has all fulfilling criteria to be provided a CPAP device. We will schedule her for follow-up in the sleep clinic after discharge for compliance check. We have made clear to the patient that we need to maintain follow-up in the sleep center for her severe sleep apnea. She understands this and is happy to do so. Exam (Progress Note) - Constitutional Vitals: Period Temp Pulse Resp BP Sys/Arellano Pulse Ox Last 24 Hr 96.5 F-97.6 F 74-81 18-22 169-193/82-96 90-96 Results - Labs CBC & BMP: 07/05/16 06:34 07/05/16 06:34 Lab Results: I have reviewed the past 24 hour labs
[2016-07-06] MEDS: CEFUROXIME 500 MG TABLET PO SCH ×2 (13:09→22:39)
[2016-07-06] MEDS: ENOXAPARIN 40 MG/0.4 ML SYRINGE SUBCUT SCH (14:38)
--- NOTE | 2016-07-06 14:43 | Hospitalist Progress Note ---
Assessment and Plan - Time spent with patient Time spent with patient: Greater than 30 minutes (1) Acute hypercapnic respiratory failure due to obstructive sleep apnea Status: Acute Assessment and plan: Improved. Appreciate pulmonary's assistance. Appreciate sleeps assistance. BiPAP to be delivered tomorrow. Current Visit: Yes (2) Diabetes mellitus Status: Acute Current Visit: Yes (3) Hypertension Status: Chronic Assessment and plan: Continue current management. Current Visit: No (4) CHF (congestive heart failure) Status: Acute Assessment and plan: Continue home medications. Current Visit: No (5) Gout Status: Chronic Assessment and plan: Continue home medications. Current Visit: No (6) History of DVT of lower extremity Status: Chronic Assessment and plan: Continue warfarin. Current Visit: No (7) UTI (urinary tract infection) Status: Acute Assessment and plan: Start oral antibiotics. Current Visit: Yes Hospitalist: Subjective Interval history: No complaints, no overnight events. Exam - Constitutional Vitals: Period Temp Pulse Resp BP Sys/Arellano Pulse Ox Last 24 Hr 96.3 F-97.6 F 74-81 18-22 137-193/82-96 90-96 General appearance: no acute distress, morbidly obese - Head Head exam: Present: normocephalic, atraumatic - Eye Eye exam: Present: EOMI Pupils: Present: LORETO - ENT ENT exam: Present: normal exam - Neck Neck exam: Present: normal inspection - Respiratory Respiratory exam: Present: clear to auscultation bilaterally. Absent: rhonchi, wheezes - Cardiovascular Cardiovascular exam: Present: regular rate and rhythm. Absent: gallop, rubs, systolic murmur - GI/Abdominal GI/Abdominal exam: Present: normal bowel sounds, soft. Absent: distended, firm , guarding, tenderness, rebound - Extremities Exam Extremities exam: Present: normal inspection. Absent: calf tenderness, edema Results - Labs CBC & BMP: 07/05/16 06:34 07/05/16 06:34 Lab Results: I have reviewed the past 24 hour labs
[2016-07-06] MEDS: WARFARIN 5 MG TABLET PO SCH (22:39)
[2016-07-07 04:27] LABS: INR 1.1
[2016-07-07] MEDS: LEVOTHYROXINE 50 MCG TABLET PO SCH (06:40)
--- NOTE | 2016-07-07 08:15 | XRay Report ---
Portable chest Date: 07/07/2016 Clinical history: Prior extubation, respiratory failure Comparison: 07/06/2016 Technique: Portable AP sitting chest Findings: Stable cardiomegaly with accentuation of the pulmonary vasculature/perihilar markings. Stable mediastinum with degenerative changes. Impression: Stable cardiomegaly with prominent vasculature and findings consistent with borderline CHF. PROCEDURE INTERPRETED AT [facility] [place] DEPARTMENT OF RADIOLOGY Final Report Signed by: Dr. Tran Schroeder
--- NOTE | 2016-07-07 08:31 | Sleep Medicine Progress Note ---
Assessment and Plan (1) KOSTA (obstructive sleep apnea) Status: Chronic Assessment and plan: Continue CPAP therapy with outpatient follow-up in sleep clinic. Current Visit: No (2) Hypertension Status: Chronic Current Visit: No (3) Type 2 diabetes mellitus Status: Acute Current Visit: No Sleep Medicine Subjective Interval history: Patient has continued to do very well on CPAP therapy. She is averaging over 7 hours nightly. Her pressure is set at 14 cm. She is being set up with [facility] for a loaner CPAP device until she is eligible for a new machine in September. She will have follow-up scheduled in the sleep clinic. She is done very well and has recovered nicely from her recent bout of acute and chronic respiratory failure. She understands the importance of follow-up in the sleep clinic. Exam (Progress Note) - Constitutional Vitals: Period Temp Pulse Resp BP Sys/Arellano Pulse Ox Last 24 Hr 96.3 F-98.3 F 71-85 20-20 134-185/75-92 93-97 Exam: She is alert and responsive in no acute distress. HEENT unremarkable neck supple without adenopathy or thyromegaly. Chest with good air movement no focal wheeze rhonchi or rales. Cardiac exam reveals a regular rhythm without murmur or gallop. Abdomen soft nontender without palpable hepatosplenomegaly or mass. Extremities are without clubbing, cyanosis, or edema. Neurologically , she is grossly intact. Results - Labs CBC & BMP: 07/05/16 06:34 07/05/16 06:34 Lab Results: I have reviewed the past 24 hour labs
[2016-07-07] MEDS: CEFUROXIME 500 MG TABLET PO SCH (09:08)
[2016-07-07] MEDS: PRAVASTATIN 20 MG TABLET PO SCH (09:08)
[2016-07-07] MEDS: BUMETANIDE 1 MG TABLET PO SCH (09:08)
[2016-07-07] MEDS: DILTIAZEM 60 MG TABLET PO SCH (09:08)
[2016-07-07] MEDS: GLIMEPIRIDE 4 MG TABLET PO SCH (09:08)
[2016-07-07] MEDS: GABAPENTIN 100 MG CAPSULE PO SCH (09:09)
[2016-07-07] MEDS: ALLOPURINOL 300 MG TABLET PO SCH (09:09)
[2016-07-07] MEDS: ASPIRIN EC 81 MG TABLET PO SCH (09:09)
[2016-07-07] MEDS: LOSARTAN 25 MG TABLET PO SCH (09:09)
--- NOTE | 2016-07-07 11:03 | Discharge Summary ---
Hospital Course - Hospital Course Hospital Course: Ms. Littlejohn was admitted for evaluation of encephalopathy secondary to hypercapnia secondary to acute on chronic respiratory failure. Blood gases on admission was 7.2 pH and 92.9 CO2. PO2 was 63.3. This is secondary to noncompliance with CPAP for obstructive sleep apnea and the patient was initiated on BiPAP while hospitalized. She recovered very nicely with normalization of her blood gases. Blood gas improved to 7.37 pH and 56.7 PCO2 pulmonary and sleep medicine consulted and the patient will receive a CPAP to take home for use at discharge. Patient was noted to have a urinary tract infection and will continue antibiotics as an outpatient for completion of treatment. By discharge she had met maximum benefit of hospitalization. I spent 36 minutes coordinating this discharge. - Time spent with patient Time with patient DS: Greater than 30 minutes Diagnosis - Discharge Diagnosis (1) Acute hypercapnic respiratory failure due to obstructive sleep apnea Status: Acute (2) Diabetes mellitus Status: Acute (3) Hypertension Status: Chronic (4) CHF (congestive heart failure) Status: Acute (5) Gout Status: Chronic (6) History of DVT of lower extremity Status: Chronic (7) UTI (urinary tract infection) Status: Acute Discharge Plan - Discharge Data Disposition: Disch To Home/Self Care Condition at Discharge: Stable Discharge Diet: advance to your usual diet Activity: resume usual activities as tolerated - Discharge Medications New Cefuroxime Tab [Ceftin] 500 mg PO BID #8 tablet Continue Aspirin EC Tab 81 mg PO DAILY tablet Allopurinol [Zyloprim] 300 mg PO DAILY #30 tablet Diltiazem Tab [Cardizem Tab] 60 mg PO BID #60 tablet Glimepiride [Amaryl] 4 mg PO DAILY W/BREAKFAST #30 tablet Levothyroxine Tab [Synthroid Tab] 50 mcg PO DAILY@0700 #30 tablet Losartan Potassium 25 mg PO DAILY #30 tablet Pantoprazole Tab [Protonix Tab] 40 mg PO DAILY #30 Zolpidem Tartrate 10 mg PO BEDTIME PRN PRN Reason: Sleep Warfarin [Coumadin] 5 mg PO DAILY@1800 Pravastatin Sodium 20 mg PO DAILY Gabapentin Cap/Tab [Neurontin Cap/Tab] 100 mg PO BID Potassium Chloride 10 meq PO DAILY Albuterol Inhaler [Proventil Inhaler] 2 puff INH Q4HR Bumetanide Tab [Bumex Tab] 1 mg PO DAILY - Follow Up or Referral - Forms/Instructions Exam - Constitutional Vitals: Period Temp Pulse Resp BP Sys/Arellano Pulse Ox Last 24 Hr 96.3 F-98.3 F 71-85 20-20 134-185/75-92 93-97 General appearance: no acute distress, morbidly obese - Head Head exam: Present: normal inspection, normocephalic, atraumatic - Eye Eye exam: Present: EOMI Pupils: Present: LORETO - ENT ENT exam: Present: normal exam - Neck Neck exam: Present: normal inspection - Respiratory Respiratory exam: Present: clear to auscultation bilaterally. Absent: accessory muscle use, prolonged expiratory phase, wheezes - Cardiovascular Cardiovascular exam: Present: regular rate and rhythm. Absent: bradycardia, irregular rhythm, systolic murmur - GI/Abdominal GI/Abdominal exam: Present: normal bowel sounds, soft. Absent: ascites, distended, hypoactive bowel sounds, tenderness, rebound - Extremities Exam Extremities exam: Present: normal inspection. Absent: normal capillary refill, full ROM, edema Discharge Results Procedures and tests throughout hospitalization: Pending Orders 07/03/16 19:33 Blood Culture Stat Labs on day of discharge: Labs from last 24 hours 07/07/16 07/07/16 07/07/16 09:08 08:11 02:43 INR 1.1 PT Patient/Control Mix 12.0 POC Glucose 126 H 62 L 07/06/16 07/06/16 07/06/16 18:51 15:38 11:52 INR PT Patient/Control Mix POC Glucose 159 H 153 H 91 Preliminary micro results at discharge 07/03/16 19:33 Blood Culture - Preliminary Blood No growth at 3 days 07/03/16 19:33 Blood Culture - Preliminary Blood No growth at 1 day DS: Provider Date of admission: 07/03/16 14:56 Primary care physician: . No PCP Attending physician on admission: Brittani Feng MD Consults: 07/03/16 15:09 Consult to Pharmacy [CONS] Routine Reason for Pharmacy Consult: Adjust Meds Renal Funct 07/03/16 16:26 Consult to Physician [CONS] Routine Comment: hypercapneic resp failure Consulting Provider: Saeid Valdes When should Consulting Provider be notified: Now Person Notified: Dr. Valdes Date Notified: 07/03/16 Time Notified: 18:23 Consult Notification Comment: Notified as walking through unit before patient arrived. 07/04/16 10:00 Consult to Physician [CONS] Routine Comment: cpap noncompliance bc ill-fitting mask Consulting Provider: Alix Hartman Discharging clinician: Brittani Feng MD Expected date of discharge: 07/07/16
[2016-07-07 13:30] VITALS: BP 124/59
[2016-07-07] MEDS: INSULIN REGULAR 100 UNIT/ML SUBCUT SCH (13:36)
== END 2016-07-07 13:15 | disposition home or self-care (01) | DRG 189 ==
LOC: EDBD → EDUNIT# → N.ED 12:39 → N.EDINP 14:56 → N.2E 15:32 → N.ICU 17:45 → N.4E 07-04 20:13
PROVIDERS: ADMIT Internal Medicine; ATTEND Internal Medicine

== ENCOUNTER 2017-10-31 16:54 | Inpatient (IN) ==
[2017-10-31] MEDS ORDERED: FUROSEMIDE 100 MG/10 ML VIAL IV STA (17:10)
[2017-10-31] MEDS ORDERED: ALBUTEROL 2.5 MG/3 ML NEB RESP TX STA (17:10)
[2017-10-31 17:30] LABS: Basophils % 0.5 % (0.0-0.8); Eosinophils # 0.1 10*3/uL (0.0-0.87); Eosinophils % 1.1 % (0.00-10.9); Hematocrit 36.3 VOL% (35.7-47.0); Hemoglobin 10.8 GM/DL (12.0-16.0); Immature Granulocytes % 0.5 %; Immature Granulocytes Absolute 0.04 #; Lymphocytes # 1.1 10*3/uL (1.4-4.0); Lymphocytes % 12.8 % (21.3-54.2); Mean Corpuscular HGB Conc 29.8 GM/DL (32-36); Mean Corpuscular Hemoglobin 29 PG (27-34); Mean Corpuscular Volume 98.6 FL (87-102); Mean Platelet Volume 9.8 FL (9.6-12.0); Monocytes # 0.4 10*3/uL (0.11-0.8); Monocytes % 4.5 % (1.7-12.7); Neutrophils % 80.6 % (38.7-73.9); Platelet Count 185 T/CUMM (130-400); Red Blood Count 3.68 MC/CUMM (3.8-5.5); Red Cell Distribution Width 15.1 % (9.3-17.3); White Blood Count 8.7 T/CUMM (4-12)
[2017-10-31 17:39] LABS: INR 1.4; PT Patient Result 14.1 SECS; Partial Thromboplastin Time 32.6 SECS (0-40)
[2017-10-31 17:43] LABS: ABG Base Excess 9.1 MMOL/L (-2.5-2.5); ABG HCO3 32.8 MMOL/L (20-26); ABG Oxygen Saturation 95.3 % (95-100); ABG PH 7.311 (7.35-7.45); ABG PO2 82.3 MM HG (80-95); ABG TCO2 34.9 MMOL/L (23-27)
[2017-10-31 17:46] LABS: ABG PCO2 75.9 MM HG (35-48)
[2017-10-31 17:52] LABS: Albumin 3.3 G/DL (3.4-5.0); Bilirubin,Total 0.4 MG/DL (0.2-1.0); Calcium 8.8 MG/DL (8.5-10.1); Osmolality,Calculated 281.7 MOS/KG (273-304); Potassium 4.8 MMOL/L (3.5-5.1); Total Protein 8.2 G/DL (6.4-8.3)
[2017-10-31 18:17] LABS: Apearance,Urine CLEAR (Clear); Bilirubin,Urine Negative (Negative); Blood, Urine Negative (Negative); Glucose,Urine (UA) Negative (Negative); Ketones,Urine Negative (Negative); Nitrite,Urine Negative (Negative); Protein,Urine Negative; RBC,Urine 2 /HPF (0-4); Urine Color Colorless (Yellow); Urine Specific Gravity 1.005 (1.001-1.035); Urine Urobilinogen < 2.0 EU/DL (0.2-1.0); WBC,Urine 1 /HPF (0-6)
[2017-10-31] MEDS ORDERED: GLUCAGON 1 MG VIAL IM PRN (18:35)
[2017-10-31] MEDS ORDERED: ACETAMINOPHEN 325 MG TABLET PO PRN (18:35)
[2017-10-31] MEDS ORDERED: DEXTROSE 50% 25 GM/50 ML VIAL IV PRN (18:35)
[2017-10-31] MEDS ORDERED: tiZANidine 4 MG TABLET PO PRN (18:37)
[2017-10-31] MEDS ORDERED: ALBUTEROL 2.5 MG/3 ML NEB RESP TX PRN (18:37)
[2017-10-31] MEDS ORDERED: CLORAZEPATE 7.5 MG TABLET PO PRN (19:49)
[2017-10-31] MEDS: INSULIN REGULAR 100 UNIT/ML SUBCUT SCH (20:00)
[2017-10-31] MEDS: MECLIZINE 12.5 MG TABLET PO SCH (20:08)
[2017-10-31] MEDS: WARFARIN 5 MG TABLET PO SCH (20:08)
[2017-10-31] MEDS ORDERED: GABAPENTIN 100 MG CAPSULE PO SCH (21:00)
[2017-10-31] MEDS: BUDESONIDE/FORMOTEROL 160-4.5 INHALER 6 GM INH SCH (22:00)
[2017-11-01] MEDS ORDERED: FUROSEMIDE 40 MG/4 ML VIAL IV ONE (01:00)
[2017-11-01] MEDS: ONDANSETRON 4 MG/2 ML VIAL IV PRN (01:34)
[2017-11-01 04:40] LABS: INR 1.3; PT Patient Result 13.7 SECS
[2017-11-01 05:19] LABS: Calcium 9.2 MG/DL (8.5-10.1); Thyroid Stimulating Hormone 2.56 uIU/ml (0.358-3.74)
[2017-11-01 05:34] LABS: Potassium 6.4 MMOL/L (3.5-5.1)
[2017-11-01] MEDS: ALBUTEROL 2.5 MG/3 ML NEB RESP TX SCH ×4 (05:40→19:25)
[2017-11-01] MEDS: LEVOTHYROXINE 50 MCG TABLET PO SCH (06:24)
[2017-11-01] MEDS ORDERED: SODIUM POLYSTYRENE SULFATE 15 GM/60 ML BOTTLE PO STA (06:26)
[2017-11-01 06:55] LABS: ABG Base Excess 8.6 MMOL/L (-2.5-2.5); ABG HCO3 32.1 MMOL/L (20-26); ABG Oxygen Saturation 84.8 % (95-100); ABG PH 7.261 (7.35-7.45); ABG PO2 57.3 MM HG (80-95)
[2017-11-01 06:57] LABS: ABG PCO2 87.4 MM HG (35-48)
[2017-11-01 07:04] LABS: Basophils % 0.4 % (0.0-0.8); Eosinophils # 0.1 10*3/uL (0.0-0.87); Eosinophils % 0.7 % (0.00-10.9); Mean Corpuscular Hemoglobin 29 PG (27-34); Monocytes # 0.3 10*3/uL (0.11-0.8); Monocytes % 3.3 % (1.7-12.7); Red Cell Distribution Width 15.3 % (9.3-17.3)
[2017-11-01 07:09] LABS: Hematocrit 37.5 VOL% (35.7-47.0); Hemoglobin 11.2 GM/DL (12.0-16.0); Immature Granulocytes % 0.4 %; Immature Granulocytes Absolute 0.04 #; Lymphocytes # 1.6 10*3/uL (1.4-4.0); Lymphocytes % 16.5 % (21.3-54.2); Mean Corpuscular HGB Conc 29.9 GM/DL (32-36); Mean Corpuscular Volume 97.7 FL (87-102); Neutrophils # 7.8 10*3/uL (1.4-7.4); Neutrophils % 78.7 % (38.7-73.9); Platelet Count 239 T/CUMM (130-400); Red Blood Count 3.84 MC/CUMM (3.8-5.5); White Blood Count 9.9 T/CUMM (4-12)
[2017-11-01] MEDS ORDERED: GLIMEPIRIDE 4 MG TABLET PO SCH (08:00)
[2017-11-01] MEDS: FUROSEMIDE 40 MG/4 ML VIAL IV SCH (09:25)
[2017-11-01] MEDS: INSULIN REGULAR 100 UNIT/ML SUBCUT SCH ×4 (09:39→21:37)
[2017-11-01] MEDS: BUDESONIDE/FORMOTEROL 160-4.5 INHALER 6 GM INH SCH ×2 (11:07→21:57)
[2017-11-01 11:25] LABS: ABG Base Excess 8.5 MMOL/L (-2.5-2.5); ABG HCO3 40.4 MMOL/L (20-26); ABG Oxygen Saturation 89.5 % (95-100); ABG PO2 73.4 MM HG (80-95); ABG TCO2 43.9 MMOL/L (23-27); Allen Test Positive
[2017-11-01 11:27] LABS: ABG PCO2 113.9 MM HG (35-48); ABG PH 7.168 (7.35-7.45)
[2017-11-01 12:35] LABS: Calcium 8.6 MG/DL (8.5-10.1); Osmolality,Calculated 283.7 MOS/KG (273-304); Potassium 5.7 MMOL/L (3.5-5.1)
[2017-11-01 13:44] LABS: ABG Base Excess 8.5 MMOL/L (-2.5-2.5); ABG HCO3 31.8 MMOL/L (20-26); ABG Oxygen Saturation 77.1 % (95-100); ABG PH 7.223 (7.35-7.45); ABG TCO2 37.2 MMOL/L (23-27)
[2017-11-01 14:00] LABS: ABG PCO2 96.9 MM HG (35-48)
[2017-11-01] MEDS: SODIUM CHLORIDE 0.9% 1,000 ML IV SCH (14:20)
[2017-11-01] MEDS: ENOXAPARIN 40 MG/0.4 ML SYRINGE SUBCUT SCH (15:28)
[2017-11-01] MEDS: MECLIZINE 12.5 MG TABLET PO SCH (15:39)
[2017-11-01 16:02] LABS: Barbiturates Screen,Urine Negative (Negative); Benzodiazepines Screen,Urine Negative (Negative); Cannabinoid Screen,Urine Negative (Negative); Opiate Screen,Urine Negative (Negative); Phencyclidine Screen,Urine Negative (Negative)
[2017-11-01 16:20] LABS: ABG Base Excess 8.8 MMOL/L (-2.5-2.5); ABG HCO3 32.4 MMOL/L (20-26); ABG PH 7.235 (7.35-7.45); ABG PO2 60.6 MM HG (80-95); ABG TCO2 37.1 MMOL/L (23-27); Allen Test Positive; Pt O2 Delivery Device BIPAP
[2017-11-01 16:26] LABS: ABG PCO2 94.1 MM HG (35-48)
[2017-11-01] MEDS ORDERED: FUROSEMIDE 40 MG TABLET PO SCH (17:00)
[2017-11-01] MEDS ORDERED: POTASSIUM CHLORIDE 10 MEQ TABLET PO SCH (17:00)
[2017-11-01] MEDS: METOPROLOL SUCCINATE XL 50 MG TABLET PO SCH (17:35)
[2017-11-01] MEDS: LACTULOSE 20 GM/30 ML UDCUP PO SCH ×2 (18:02→21:37)
[2017-11-01] MEDS: PANTOPRAZOLE 40 MG TABLET PO SCH (18:03)
[2017-11-01] MEDS: WARFARIN 5 MG TABLET PO SCH (18:03)
[2017-11-01] MEDS: ASPIRIN EC 81 MG TABLET PO SCH (18:03)
[2017-11-01] MEDS: ALLOPURINOL 300 MG TABLET PO SCH (18:03)
[2017-11-01 20:36] LABS: ABG Base Excess 8.6 MMOL/L (-2.5-2.5); ABG HCO3 31.9 MMOL/L (20-26); ABG Oxygen Saturation 77.5 % (95-100); ABG PH 7.236 (7.35-7.45); ABG PO2 47.3 MM HG (80-95); ABG TCO2 36.9 MMOL/L (23-27)
[2017-11-01 20:47] LABS: ABG PCO2 93.6 MM HG (35-48)
[2017-11-01] MEDS: cefTRIAXone 1,000 MG in SYRINGE 1 EACH IV SCH (21:37)
[2017-11-02] MEDS: ALBUTEROL 2.5 MG/3 ML NEB RESP TX SCH ×4 (00:35→19:18)
[2017-11-02] MEDS: SODIUM CHLORIDE 0.9% 1,000 ML IV SCH ×3 (00:45→21:44)
[2017-11-02 03:46] LABS: ABG HCO3 36.8 MMOL/L (20-26); ABG PH 7.248 (7.35-7.45); ABG PO2 118.5 MM HG (80-95); ABG TCO2 39.4 MMOL/L (23-27)
[2017-11-02 03:47] LABS: ABG Oxygen Saturation 97.5 % (95-100)
[2017-11-02 03:51] LABS: ABG PCO2 86.2 MM HG (35-48)
[2017-11-02 06:21] LABS: INR 1.8; PT Patient Result 18.2 SECS
[2017-11-02 06:25] LABS: Calcium 8.6 MG/DL (8.5-10.1); Osmolality,Calculated 287.3 MOS/KG (273-304); Potassium 4.9 MMOL/L (3.5-5.1)
[2017-11-02 06:26] LABS: Calcium 8.7 MG/DL (8.5-10.1); Osmolality,Calculated 285.4 MOS/KG (273-304); Potassium 4.9 MMOL/L (3.5-5.1)
[2017-11-02 06:58] LABS: Basophils # 0.1 10*3/uL (0.0-0.2); Basophils % 0.7 % (0.0-0.8); Eosinophils # 0.1 10*3/uL (0.0-0.87); Eosinophils % 1.7 % (0.00-10.9); Hematocrit 34.8 VOL% (35.7-47.0); Immature Granulocytes % 0.3 %; Immature Granulocytes Absolute 0.02 #; Lymphocytes # 1.4 10*3/uL (1.4-4.0); Lymphocytes % 19.9 % (21.3-54.2); Mean Corpuscular HGB Conc 28.7 GM/DL (32-36); Mean Corpuscular Hemoglobin 29 PG (27-34); Mean Corpuscular Volume 102.4 FL (87-102); Mean Platelet Volume 10.6 FL (9.6-12.0); Monocytes # 0.4 10*3/uL (0.11-0.8); Monocytes % 5.8 % (1.7-12.7); Neutrophils # 5.2 10*3/uL (1.4-7.4); Neutrophils % 71.6 % (38.7-73.9); Platelet Count 181 T/CUMM (130-400); Red Cell Distribution Width 15.1 % (9.3-17.3); White Blood Count 7.2 T/CUMM (4-12)
[2017-11-02] MEDS: LEVOTHYROXINE 50 MCG TABLET PO SCH (07:03)
[2017-11-02 07:14] LABS: Platelet Estimate Normal
[2017-11-02 07:15] LABS: Anisocytosis 1+; Basophilic Stippling Slight; Macrocytosis 1+
[2017-11-02 07:17] LABS: Giant Platelets Few; Target Cells Few
[2017-11-02] MEDS: INSULIN REGULAR 100 UNIT/ML SUBCUT SCH ×4 (08:45→20:17)
[2017-11-02] MEDS: LACTULOSE 20 GM/30 ML UDCUP PO SCH ×2 (09:06→20:16)
[2017-11-02] MEDS: FUROSEMIDE 40 MG/4 ML VIAL IV SCH (09:06)
[2017-11-02] MEDS: BUDESONIDE/FORMOTEROL 160-4.5 INHALER 6 GM INH SCH ×2 (09:07→20:17)
[2017-11-02 10:11] LABS: % Iron Saturation 18.4 % (18-50)
[2017-11-02] MEDS: ENOXAPARIN 40 MG/0.4 ML SYRINGE SUBCUT SCH (15:13)
[2017-11-02] MEDS: METOPROLOL SUCCINATE XL 50 MG TABLET PO SCH (17:25)
[2017-11-02] MEDS: WARFARIN 5 MG TABLET PO SCH (17:25)
[2017-11-02] MEDS: ASPIRIN EC 81 MG TABLET PO SCH (17:28)
[2017-11-02] MEDS: PANTOPRAZOLE 40 MG TABLET PO SCH (17:28)
[2017-11-02] MEDS: ALLOPURINOL 300 MG TABLET PO SCH (17:28)
[2017-11-02] MEDS: cefTRIAXone 1,000 MG in SYRINGE 1 EACH IV SCH (20:16)
[2017-11-03] MEDS: ALBUTEROL 2.5 MG/3 ML NEB RESP TX SCH ×4 (01:03→19:37)
[2017-11-03 04:32] LABS: INR 1.7; PT Patient Result 17.8 SECS
[2017-11-03 04:36] LABS: ABG Base Excess 6.5 MMOL/L (-2.5-2.5); ABG HCO3 30.3 MMOL/L (20-26); ABG Oxygen Saturation 97.8 % (95-100); ABG PH 7.263 (7.35-7.45); ABG TCO2 33.5 MMOL/L (23-27)
[2017-11-03 04:39] LABS: ABG PCO2 79.9 MM HG (35-48)
[2017-11-03 04:53] LABS: Calcium 8.6 MG/DL (8.5-10.1); Osmolality,Calculated 282.7 MOS/KG (273-304); Potassium 5.2 MMOL/L (3.5-5.1)
[2017-11-03] MEDS: INSULIN REGULAR 100 UNIT/ML SUBCUT SCH ×4 (08:08→21:23)
[2017-11-03] MEDS: LEVOTHYROXINE 50 MCG TABLET PO SCH (08:20)
[2017-11-03] MEDS: FUROSEMIDE 40 MG/4 ML VIAL IV SCH ×2 (08:20→16:44)
[2017-11-03] MEDS: BUDESONIDE/FORMOTEROL 160-4.5 INHALER 6 GM INH SCH ×2 (09:27→21:24)
[2017-11-03] MEDS: LACTULOSE 20 GM/30 ML UDCUP PO SCH ×2 (09:27→21:23)
[2017-11-03] MEDS ORDERED: HYDROCORTISONE 1% OINT 28.35 GM TUBE TOP PRN (12:51)
[2017-11-03] MEDS: CETIRIZINE 10 MG TABLET PO SCH (13:50)
[2017-11-03] MEDS: ENOXAPARIN 40 MG/0.4 ML SYRINGE SUBCUT SCH (13:50)
[2017-11-03] MEDS: METOPROLOL SUCCINATE XL 50 MG TABLET PO SCH (16:44)
[2017-11-03] MEDS: PANTOPRAZOLE 40 MG TABLET PO SCH (16:44)
[2017-11-03] MEDS: ASPIRIN EC 81 MG TABLET PO SCH (16:44)
[2017-11-03] MEDS: ALLOPURINOL 300 MG TABLET PO SCH (16:44)
[2017-11-03] MEDS: WARFARIN 5 MG TABLET PO SCH (18:24)
[2017-11-03] MEDS: cefTRIAXone 1,000 MG in SYRINGE 1 EACH IV SCH (21:23)
[2017-11-04] MEDS: ALBUTEROL 2.5 MG/3 ML NEB RESP TX SCH ×4 (01:13→18:58)
[2017-11-04 04:52] LABS: ABG Base Excess 6.6 MMOL/L (-2.5-2.5); ABG HCO3 30.3 MMOL/L (20-26); ABG Oxygen Saturation 88.6 % (95-100); ABG PH 7.255 (7.35-7.45); ABG PO2 59.4 MM HG (80-95); ABG TCO2 33.9 MMOL/L (23-27); Allen Test Positive; Pt O2 Delivery Device BIPAP
[2017-11-04 04:54] LABS: ABG PCO2 82.5 MM HG (35-48)
[2017-11-04 05:04] LABS: INR 1.6; PT Patient Result 16.9 SECS
[2017-11-04 05:18] LABS: Calcium 8.7 MG/DL (8.5-10.1); Osmolality,Calculated 286.4 MOS/KG (273-304); Potassium 4.8 MMOL/L (3.5-5.1)
[2017-11-04] MEDS: LEVOTHYROXINE 50 MCG TABLET PO SCH (06:06)
[2017-11-04] MEDS: methylPREDNISolone SOD SUC 40 MG/1 ML VIAL IV SCH ×2 (08:32→20:20)
[2017-11-04] MEDS: LACTULOSE 20 GM/30 ML UDCUP PO SCH ×3 (08:32→20:45)
[2017-11-04] MEDS: FUROSEMIDE 40 MG/4 ML VIAL IV SCH ×2 (08:33→15:44)
[2017-11-04] MEDS: THEOPHYLLINE ER (24 HR) 400 MG TABLET PO SCH (08:33)
[2017-11-04] MEDS: CETIRIZINE 10 MG TABLET PO SCH (08:33)
[2017-11-04] MEDS: INSULIN REGULAR 100 UNIT/ML SUBCUT SCH ×4 (08:33→20:42)
[2017-11-04] MEDS: BUDESONIDE/FORMOTEROL 160-4.5 INHALER 6 GM INH SCH ×2 (08:34→20:38)
[2017-11-04] MEDS: ENOXAPARIN 40 MG/0.4 ML SYRINGE SUBCUT SCH (13:35)
[2017-11-04] MEDS: ALLOPURINOL 300 MG TABLET PO SCH (18:06)
[2017-11-04] MEDS: METOPROLOL SUCCINATE XL 50 MG TABLET PO SCH (18:06)
[2017-11-04] MEDS: ASPIRIN EC 81 MG TABLET PO SCH (18:06)
[2017-11-04] MEDS: PANTOPRAZOLE 40 MG TABLET PO SCH (18:06)
[2017-11-04] MEDS: WARFARIN 5 MG TABLET PO SCH (18:07)
[2017-11-04] MEDS: cefTRIAXone 1,000 MG in SYRINGE 1 EACH IV SCH (20:20)
[2017-11-05] MEDS: ALBUTEROL 2.5 MG/3 ML NEB RESP TX SCH ×4 (00:01→19:10)
[2017-11-05 04:00] LABS: ABG Base Excess 6.7 MMOL/L (-2.5-2.5); ABG HCO3 30.5 MMOL/L (20-26); ABG PH 7.251 (7.35-7.45); ABG TCO2 34.2 MMOL/L (23-27); Allen Test Positive; Pt O2 Delivery Device Other
[2017-11-05 05:03] LABS: INR 1.6; PT Patient Result 16.8 SECS
[2017-11-05 05:07] LABS: Calcium 9.3 MG/DL (8.5-10.1); Osmolality,Calculated 285.7 MOS/KG (273-304); Potassium 5.1 MMOL/L (3.5-5.1)
[2017-11-05 05:27] LABS: Basophils % 0.2 % (0.0-0.8); Hemoglobin 10.1 GM/DL (12.0-16.0); Immature Granulocytes Absolute 0.06 #; Lymphocytes # 0.6 10*3/uL (1.4-4.0); Lymphocytes % 9.7 % (21.3-54.2); Mean Corpuscular HGB Conc 28.9 GM/DL (32-36); Mean Corpuscular Hemoglobin 29 PG (27-34); Mean Corpuscular Volume 101.2 FL (87-102); Mean Platelet Volume 10.6 FL (9.6-12.0); Monocytes # 0.1 10*3/uL (0.11-0.8); Neutrophils # 5.1 10*3/uL (1.4-7.4); Neutrophils % 88.1 % (38.7-73.9); Platelet Count 164 T/CUMM (130-400); Red Blood Count 3.46 MC/CUMM (3.8-5.5); Red Cell Distribution Width 14.9 % (9.3-17.3); White Blood Count 5.8 T/CUMM (4-12)
[2017-11-05 05:46] LABS: Total Cells Counted 100
[2017-11-05 05:47] LABS: Macrocytosis Slight
[2017-11-05 05:48] LABS: Nucleated Red Blood Cells 1 (0-5)
[2017-11-05 05:49] LABS: Lymphocytes 6 % (20-55); Segmented Neutrophils 94 % (50-85)
[2017-11-05 05:50] LABS: Anisocytosis 1+; Hypochromasia 1+
[2017-11-05 05:51] LABS: Platelet Estimate Adequate
[2017-11-05] MEDS: LEVOTHYROXINE 50 MCG TABLET PO SCH (06:10)
[2017-11-05] MEDS: INSULIN REGULAR 100 UNIT/ML SUBCUT SCH ×4 (09:15→20:04)
[2017-11-05] MEDS: LACTULOSE 20 GM/30 ML UDCUP PO SCH ×2 (09:16→20:08)
[2017-11-05] MEDS: THEOPHYLLINE ER (24 HR) 400 MG TABLET PO SCH (09:16)
[2017-11-05] MEDS: CETIRIZINE 10 MG TABLET PO SCH (09:17)
[2017-11-05] MEDS: FUROSEMIDE 40 MG/4 ML VIAL IV SCH ×2 (09:21→15:43)
[2017-11-05] MEDS: methylPREDNISolone SOD SUC 40 MG/1 ML VIAL IV SCH ×2 (09:23→20:05)
[2017-11-05] MEDS: BUDESONIDE/FORMOTEROL 160-4.5 INHALER 6 GM INH SCH ×2 (09:23→20:06)
[2017-11-05] MEDS: ENOXAPARIN 40 MG/0.4 ML SYRINGE SUBCUT SCH (13:44)
[2017-11-05] MEDS: PANTOPRAZOLE 40 MG TABLET PO SCH (16:23)
[2017-11-05] MEDS: METOPROLOL SUCCINATE XL 50 MG TABLET PO SCH (16:23)
[2017-11-05] MEDS: ASPIRIN EC 81 MG TABLET PO SCH (16:23)
[2017-11-05] MEDS: ALLOPURINOL 300 MG TABLET PO SCH (16:24)
[2017-11-05] MEDS: WARFARIN 5 MG TABLET PO SCH (17:32)
[2017-11-05] MEDS: cefTRIAXone 1,000 MG in SYRINGE 1 EACH IV SCH (20:05)
[2017-11-06] MEDS: ALBUTEROL 2.5 MG/3 ML NEB RESP TX SCH ×4 (00:51→19:47)
[2017-11-06 03:36] LABS: ABG Base Excess 7.3 MMOL/L (-2.5-2.5); ABG HCO3 30.9 MMOL/L (20-26); ABG Oxygen Saturation 88.9 % (95-100); ABG PH 7.263 (7.35-7.45); ABG PO2 61.5 MM HG (80-95); ABG TCO2 34.4 MMOL/L (23-27); Allen Test Positive; Pt O2 Delivery Device CPAP
[2017-11-06 03:39] LABS: ABG PCO2 82.9 MM HG (35-48)
[2017-11-06 04:58] LABS: INR 1.8; PT Patient Result 18.6 SECS
[2017-11-06 05:25] LABS: Calcium 9.2 MG/DL (8.5-10.1)
[2017-11-06 05:26] LABS: Osmolality,Calculated 285.8 MOS/KG (273-304); Potassium 4.8 MMOL/L (3.5-5.1)
[2017-11-06] MEDS: LEVOTHYROXINE 50 MCG TABLET PO SCH (06:18)
[2017-11-06] MEDS: INSULIN REGULAR 100 UNIT/ML SUBCUT SCH ×4 (08:34→20:19)
[2017-11-06] MEDS: CETIRIZINE 10 MG TABLET PO SCH (09:01)
[2017-11-06] MEDS: THEOPHYLLINE ER (24 HR) 400 MG TABLET PO SCH (09:01)
[2017-11-06] MEDS: FUROSEMIDE 40 MG/4 ML VIAL IV SCH ×2 (09:01→15:57)
[2017-11-06] MEDS: LACTULOSE 20 GM/30 ML UDCUP PO SCH ×2 (09:01→20:19)
[2017-11-06] MEDS: BUDESONIDE/FORMOTEROL 160-4.5 INHALER 6 GM INH SCH ×2 (09:05→20:23)
[2017-11-06] MEDS: methylPREDNISolone SOD SUC 40 MG/1 ML VIAL IV SCH ×2 (09:06→20:19)
[2017-11-06] MEDS: ENOXAPARIN 40 MG/0.4 ML SYRINGE SUBCUT SCH (13:48)
[2017-11-06] MEDS: WARFARIN 5 MG TABLET PO SCH (17:15)
[2017-11-06] MEDS: ALLOPURINOL 300 MG TABLET PO SCH (17:15)
[2017-11-06] MEDS: PANTOPRAZOLE 40 MG TABLET PO SCH (17:15)
[2017-11-06] MEDS: ASPIRIN EC 81 MG TABLET PO SCH (17:15)
[2017-11-06] MEDS: METOPROLOL SUCCINATE XL 50 MG TABLET PO SCH (17:15)
[2017-11-06] MEDS: cefTRIAXone 1,000 MG in SYRINGE 1 EACH IV SCH (20:20)
[2017-11-07] MEDS: ALBUTEROL 2.5 MG/3 ML NEB RESP TX SCH ×4 (01:26→20:50)
[2017-11-07 04:04] LABS: ABG Base Excess 8.4 MMOL/L (-2.5-2.5); ABG Oxygen Saturation 87.8 % (95-100); ABG PH 7.296 (7.35-7.45); ABG PO2 57.8 MM HG (80-95); ABG TCO2 34.6 MMOL/L (23-27)
[2017-11-07 04:12] LABS: Calcium 9.4 MG/DL (8.5-10.1); Osmolality,Calculated 291.7 MOS/KG (273-304); Potassium 4.6 MMOL/L (3.5-5.1)
[2017-11-07 04:13] LABS: ABG PCO2 77.5 MM HG (35-48)
[2017-11-07] MEDS: LEVOTHYROXINE 50 MCG TABLET PO SCH (06:05)
[2017-11-07] MEDS: THEOPHYLLINE ER (24 HR) 400 MG TABLET PO SCH (08:32)
[2017-11-07] MEDS: CETIRIZINE 10 MG TABLET PO SCH (08:32)
[2017-11-07] MEDS: FUROSEMIDE 40 MG/4 ML VIAL IV SCH ×2 (08:32→15:54)
[2017-11-07] MEDS: INSULIN REGULAR 100 UNIT/ML SUBCUT SCH ×4 (08:33→20:38)
[2017-11-07] MEDS: methylPREDNISolone SOD SUC 40 MG/1 ML VIAL IV SCH ×2 (08:33→20:32)
[2017-11-07] MEDS: BUDESONIDE/FORMOTEROL 160-4.5 INHALER 6 GM INH SCH ×2 (08:34→20:40)
[2017-11-07] MEDS: LACTULOSE 20 GM/30 ML UDCUP PO SCH ×2 (08:36→20:31)
[2017-11-07] MEDS: ENOXAPARIN 40 MG/0.4 ML SYRINGE SUBCUT SCH (13:34)
[2017-11-07] MEDS: PANTOPRAZOLE 40 MG TABLET PO SCH (17:00)
[2017-11-07] MEDS: WARFARIN 5 MG TABLET PO SCH (17:01)
[2017-11-07] MEDS: ALLOPURINOL 300 MG TABLET PO SCH (17:01)
[2017-11-07] MEDS: ASPIRIN EC 81 MG TABLET PO SCH (17:01)
[2017-11-07] MEDS: METOPROLOL SUCCINATE XL 50 MG TABLET PO SCH (17:01)
[2017-11-07] MEDS: cefTRIAXone 1,000 MG in SYRINGE 1 EACH IV SCH (20:35)
[2017-11-08] MEDS: ALBUTEROL 2.5 MG/3 ML NEB RESP TX SCH ×4 (00:34→19:15)
[2017-11-08 04:54] LABS: ABG Base Excess 8.4 MMOL/L (-2.5-2.5); ABG HCO3 32.1 MMOL/L (20-26); ABG Oxygen Saturation 92.4 % (95-100); ABG PH 7.274 (7.35-7.45); ABG PO2 69.2 MM HG (80-95); ABG TCO2 35.3 MMOL/L (23-27); Allen Test Positive; Pt O2 Delivery Device BIPAP
[2017-11-08 04:57] LABS: ABG PCO2 83.2 MM HG (35-48)
[2017-11-08 06:16] LABS: INR 1.7; PT Patient Result 17.9 SECS
[2017-11-08 06:49] LABS: Calcium 9.1 MG/DL (8.5-10.1); Potassium 4.5 MMOL/L (3.5-5.1)
[2017-11-08] MEDS: LEVOTHYROXINE 50 MCG TABLET PO SCH (06:58)
[2017-11-08] MEDS: THEOPHYLLINE ER (24 HR) 400 MG TABLET PO SCH (08:40)
[2017-11-08] MEDS: CETIRIZINE 10 MG TABLET PO SCH (08:40)
[2017-11-08] MEDS: LACTULOSE 20 GM/30 ML UDCUP PO SCH ×2 (08:41→21:28)
[2017-11-08] MEDS: INSULIN REGULAR 100 UNIT/ML SUBCUT SCH ×4 (08:41→21:29)
[2017-11-08] MEDS: methylPREDNISolone SOD SUC 40 MG/1 ML VIAL IV SCH ×2 (08:41→21:31)
[2017-11-08] MEDS: FUROSEMIDE 40 MG/4 ML VIAL IV SCH ×2 (08:42→16:03)
[2017-11-08] MEDS: BUDESONIDE/FORMOTEROL 160-4.5 INHALER 6 GM INH SCH ×2 (09:52→22:35)
[2017-11-08] MEDS: ENOXAPARIN 40 MG/0.4 ML SYRINGE SUBCUT SCH (13:13)
[2017-11-08] MEDS: ALLOPURINOL 300 MG TABLET PO SCH (16:07)
[2017-11-08] MEDS: METOPROLOL SUCCINATE XL 50 MG TABLET PO SCH (16:07)
[2017-11-08] MEDS: ASPIRIN EC 81 MG TABLET PO SCH (16:07)
[2017-11-08] MEDS: PANTOPRAZOLE 40 MG TABLET PO SCH (16:07)
[2017-11-08] MEDS: WARFARIN 5 MG TABLET PO SCH (18:22)
[2017-11-08] MEDS: cefTRIAXone 1,000 MG in SYRINGE 1 EACH IV SCH (21:34)
[2017-11-09] MEDS: ALBUTEROL 2.5 MG/3 ML NEB RESP TX SCH ×4 (00:42→19:22)
[2017-11-09 05:25] LABS: INR 1.6; PT Patient Result 16.9 SECS
[2017-11-09 05:40] LABS: ABG Base Excess 10.1 MMOL/L (-2.5-2.5); ABG HCO3 33.6 MMOL/L (20-26); ABG Oxygen Saturation 86.3 % (95-100); ABG PO2 54.5 MM HG (80-95); ABG TCO2 36.7 MMOL/L (23-27); Allen Test Positive
[2017-11-09 05:46] LABS: ABG PCO2 83.4 MM HG (35-48)
[2017-11-09 06:02] LABS: Calcium 8.9 MG/DL (8.5-10.1); Osmolality,Calculated 300.3 MOS/KG (273-304); Potassium 4.1 MMOL/L (3.5-5.1)
[2017-11-09] MEDS: LEVOTHYROXINE 50 MCG TABLET PO SCH (06:25)
[2017-11-09] MEDS: INSULIN REGULAR 100 UNIT/ML SUBCUT SCH ×4 (09:24→21:52)
[2017-11-09] MEDS: FUROSEMIDE 40 MG/4 ML VIAL IV SCH ×2 (09:24→16:52)
[2017-11-09] MEDS: CETIRIZINE 10 MG TABLET PO SCH (09:25)
[2017-11-09] MEDS: THEOPHYLLINE ER (24 HR) 400 MG TABLET PO SCH (09:25)
[2017-11-09] MEDS: methylPREDNISolone SOD SUC 40 MG/1 ML VIAL IV SCH ×2 (09:25→21:52)
[2017-11-09] MEDS: BUDESONIDE/FORMOTEROL 160-4.5 INHALER 6 GM INH SCH ×2 (09:26→21:55)
[2017-11-09] MEDS: LACTULOSE 20 GM/30 ML UDCUP PO SCH ×3 (09:26→22:03)
[2017-11-09] MEDS: ENOXAPARIN 40 MG/0.4 ML SYRINGE SUBCUT SCH (13:20)
[2017-11-09] MEDS: PANTOPRAZOLE 40 MG TABLET PO SCH (16:52)
[2017-11-09] MEDS: METOPROLOL SUCCINATE XL 50 MG TABLET PO SCH (16:52)
[2017-11-09] MEDS: ALLOPURINOL 300 MG TABLET PO SCH (16:52)
[2017-11-09] MEDS: ASPIRIN EC 81 MG TABLET PO SCH (17:00)
[2017-11-09] MEDS: WARFARIN 5 MG TABLET PO SCH (17:00)
[2017-11-09] MEDS: cefTRIAXone 1,000 MG in SYRINGE 1 EACH IV SCH (21:54)
[2017-11-10] MEDS: ALBUTEROL 2.5 MG/3 ML NEB RESP TX SCH ×4 (00:56→19:26)
[2017-11-10 03:53] LABS: ABG Base Excess 10.1 MMOL/L (-2.5-2.5); ABG HCO3 33.8 MMOL/L (20-26); ABG Oxygen Saturation 93.8 % (95-100); ABG PH 7.316 (7.35-7.45); ABG PO2 65.6 MM HG (80-95); ABG TCO2 35.9 MMOL/L (23-27)
[2017-11-10 03:55] LABS: ABG PCO2 76.8 MM HG (35-48)
[2017-11-10 06:20] LABS: Hematocrit 35.9 VOL% (35.7-47.0); Hemoglobin 10.8 GM/DL (12.0-16.0); Immature Granulocytes % 0.7 %; Immature Granulocytes Absolute 0.05 #; Lymphocytes # 0.4 10*3/uL (1.4-4.0); Lymphocytes % 5.8 % (21.3-54.2); Mean Corpuscular HGB Conc 30.1 GM/DL (32-36); Mean Corpuscular Hemoglobin 29 PG (27-34); Mean Corpuscular Volume 97.3 FL (87-102); Mean Platelet Volume 10.1 FL (9.6-12.0); Monocytes # 0.1 10*3/uL (0.11-0.8); Monocytes % 1.5 % (1.7-12.7); Neutrophils # 6.2 10*3/uL (1.4-7.4); Platelet Count 175 T/CUMM (130-400); Red Blood Count 3.69 MC/CUMM (3.8-5.5); Red Cell Distribution Width 14.9 % (9.3-17.3); White Blood Count 6.8 T/CUMM (4-12)
[2017-11-10] MEDS: LEVOTHYROXINE 50 MCG TABLET PO SCH (06:24)
[2017-11-10 06:38] LABS: INR 1.7; PT Patient Result 17.5 SECS
[2017-11-10 06:39] LABS: Calcium 9.1 MG/DL (8.5-10.1); Potassium 4.3 MMOL/L (3.5-5.1)
[2017-11-10 07:43] LABS: Lymphocytes 6 % (20-55); Platelet Estimate Normal; Segmented Neutrophils 92 % (50-85); Total Cells Counted 100
[2017-11-10 07:45] LABS: Anisocytosis 2+; Hypochromasia 2+; Macrocytosis 2+; Ovalocytes Few
[2017-11-10] MEDS: INSULIN REGULAR 100 UNIT/ML SUBCUT SCH ×4 (09:22→20:38)
[2017-11-10] MEDS: CETIRIZINE 10 MG TABLET PO SCH (09:22)
[2017-11-10] MEDS: methylPREDNISolone SOD SUC 40 MG/1 ML VIAL IV SCH ×2 (09:22→20:34)
[2017-11-10] MEDS: LACTULOSE 20 GM/30 ML UDCUP PO SCH ×2 (09:22→20:26)
[2017-11-10] MEDS: THEOPHYLLINE ER (24 HR) 400 MG TABLET PO SCH (09:22)
[2017-11-10] MEDS: FUROSEMIDE 40 MG/4 ML VIAL IV SCH ×2 (09:23→16:55)
[2017-11-10] MEDS: BUDESONIDE/FORMOTEROL 160-4.5 INHALER 6 GM INH SCH ×2 (09:23→20:26)
[2017-11-10] MEDS: ENOXAPARIN 40 MG/0.4 ML SYRINGE SUBCUT SCH ×2 (12:16→12:30)
[2017-11-10] MEDS: METOPROLOL SUCCINATE XL 50 MG TABLET PO SCH (17:00)
[2017-11-10] MEDS: ALLOPURINOL 300 MG TABLET PO SCH (17:00)
[2017-11-10] MEDS: PANTOPRAZOLE 40 MG TABLET PO SCH (17:00)
[2017-11-10] MEDS: WARFARIN 5 MG TABLET PO SCH (17:00)
[2017-11-10] MEDS: ASPIRIN EC 81 MG TABLET PO SCH (17:00)
[2017-11-10] MEDS: cefTRIAXone 1,000 MG in SYRINGE 1 EACH IV SCH (20:35)
[2017-11-11] MEDS: ALBUTEROL 2.5 MG/3 ML NEB RESP TX SCH ×4 (00:21→18:40)
[2017-11-11 04:23] LABS: INR 1.7; PT Patient Result 17.3 SECS
[2017-11-11] MEDS: LEVOTHYROXINE 50 MCG TABLET PO SCH (06:05)
[2017-11-11] MEDS: INSULIN REGULAR 100 UNIT/ML SUBCUT SCH ×4 (09:47→21:42)
[2017-11-11] MEDS: methylPREDNISolone SOD SUC 40 MG/1 ML VIAL IV SCH ×2 (09:48→21:33)
[2017-11-11] MEDS: FUROSEMIDE 40 MG/4 ML VIAL IV SCH ×2 (09:48→16:24)
[2017-11-11] MEDS: THEOPHYLLINE ER (24 HR) 400 MG TABLET PO SCH (09:49)
[2017-11-11] MEDS: BUDESONIDE/FORMOTEROL 160-4.5 INHALER 6 GM INH SCH ×2 (09:49→21:44)
[2017-11-11] MEDS: CETIRIZINE 10 MG TABLET PO SCH (09:49)
[2017-11-11] MEDS: LACTULOSE 20 GM/30 ML UDCUP PO SCH (09:49)
[2017-11-11] MEDS: ENOXAPARIN 40 MG/0.4 ML SYRINGE SUBCUT SCH (13:00)
[2017-11-11] MEDS: ALLOPURINOL 300 MG TABLET PO SCH (16:23)
[2017-11-11] MEDS: PANTOPRAZOLE 40 MG TABLET PO SCH (16:23)
[2017-11-11] MEDS: ASPIRIN EC 81 MG TABLET PO SCH (16:23)
[2017-11-11] MEDS: METOPROLOL SUCCINATE XL 50 MG TABLET PO SCH (16:24)
[2017-11-11] MEDS: WARFARIN 5 MG TABLET PO SCH (17:19)
[2017-11-11] MEDS: cefTRIAXone 1,000 MG in SYRINGE 1 EACH IV SCH (21:35)
[2017-11-12] MEDS: ALBUTEROL 2.5 MG/3 ML NEB RESP TX SCH ×4 (00:10→19:19)
[2017-11-12] MEDS: LEVOTHYROXINE 50 MCG TABLET PO SCH (06:00)
[2017-11-12] MEDS: THEOPHYLLINE ER (24 HR) 400 MG TABLET PO SCH (09:08)
[2017-11-12] MEDS: BUDESONIDE/FORMOTEROL 160-4.5 INHALER 6 GM INH SCH ×2 (09:09→20:24)
[2017-11-12] MEDS: POLYETHYLENE GLYCOL POWDER 17 GM PACK PO SCH (09:09)
[2017-11-12] MEDS: CETIRIZINE 10 MG TABLET PO SCH (09:09)
[2017-11-12] MEDS: INSULIN REGULAR 100 UNIT/ML SUBCUT SCH ×4 (09:09→20:17)
[2017-11-12] MEDS: methylPREDNISolone SOD SUC 40 MG/1 ML VIAL IV SCH ×2 (09:10→20:18)
[2017-11-12] MEDS: FUROSEMIDE 40 MG/4 ML VIAL IV SCH ×2 (09:11→17:12)
[2017-11-12 11:16] LABS: Osmolality,Calculated 303.5 MOS/KG (273-304); Potassium 4.3 MMOL/L (3.5-5.1)
[2017-11-12 12:42] LABS: ABG Base Excess 9.4 MMOL/L (-2.5-2.5); ABG HCO3 33.1 MMOL/L (20-26); ABG PH 7.279 (7.35-7.45); ABG PO2 74.5 MM HG (80-95); ABG TCO2 36.2 MMOL/L (23-27)
[2017-11-12 12:44] LABS: ABG PCO2 85.1 MM HG (35-48)
[2017-11-12] MEDS: ENOXAPARIN 40 MG/0.4 ML SYRINGE SUBCUT SCH (14:23)
[2017-11-12] MEDS: ALLOPURINOL 300 MG TABLET PO SCH (17:11)
[2017-11-12] MEDS: ASPIRIN EC 81 MG TABLET PO SCH (17:12)
[2017-11-12] MEDS: PANTOPRAZOLE 40 MG TABLET PO SCH (17:12)
[2017-11-12] MEDS: WARFARIN 3 MG TABLET PO SCH (17:12)
[2017-11-12] MEDS: METOPROLOL SUCCINATE XL 50 MG TABLET PO SCH (17:12)
[2017-11-12] MEDS: cefTRIAXone 1,000 MG in SYRINGE 1 EACH IV SCH (20:21)
[2017-11-13] MEDS: ALBUTEROL 2.5 MG/3 ML NEB RESP TX SCH ×4 (01:23→19:20)
[2017-11-13 04:33] LABS: ABG Base Excess 10.5 MMOL/L (-2.5-2.5); ABG HCO3 34.2 MMOL/L (20-26); ABG Oxygen Saturation 95.7 % (95-100); ABG PH 7.283 (7.35-7.45); ABG PO2 81.8 MM HG (80-95); ABG TCO2 37.3 MMOL/L (23-27)
[2017-11-13 04:49] LABS: ABG PCO2 86.7 MM HG (35-48)
[2017-11-13 05:44] LABS: Calcium 8.8 MG/DL (8.5-10.1); Potassium 4.1 MMOL/L (3.5-5.1)
[2017-11-13] MEDS: LEVOTHYROXINE 50 MCG TABLET PO SCH (06:04)
[2017-11-13] MEDS: INSULIN REGULAR 100 UNIT/ML SUBCUT SCH ×4 (08:38→21:00)
[2017-11-13] MEDS: methylPREDNISolone SOD SUC 40 MG/1 ML VIAL IV SCH (08:39)
[2017-11-13] MEDS: POLYETHYLENE GLYCOL POWDER 17 GM PACK PO SCH (08:39)
[2017-11-13] MEDS: CETIRIZINE 10 MG TABLET PO SCH (08:40)
[2017-11-13] MEDS: THEOPHYLLINE ER (24 HR) 400 MG TABLET PO SCH (08:40)
[2017-11-13] MEDS: FUROSEMIDE 40 MG/4 ML VIAL IV SCH (08:42)
[2017-11-13] MEDS: BUDESONIDE/FORMOTEROL 160-4.5 INHALER 6 GM INH SCH ×2 (08:43→21:00)
[2017-11-13 12:49] LABS: ABG HCO3 33.5 MMOL/L (20-26); ABG Oxygen Saturation 87.7 % (95-100); ABG PH 7.291 (7.35-7.45); ABG PO2 56.1 MM HG (80-95); ABG TCO2 36.5 MMOL/L (23-27); Allen Test Positive
[2017-11-13 12:55] LABS: ABG PCO2 83.6 MM HG (35-48)
[2017-11-13] MEDS: ENOXAPARIN 40 MG/0.4 ML SYRINGE SUBCUT SCH (13:00)
[2017-11-13] MEDS: PANTOPRAZOLE 40 MG TABLET PO SCH (16:49)
[2017-11-13] MEDS: ASPIRIN EC 81 MG TABLET PO SCH (16:49)
[2017-11-13] MEDS: ALLOPURINOL 300 MG TABLET PO SCH (16:50)
[2017-11-13] MEDS: METOPROLOL SUCCINATE XL 50 MG TABLET PO SCH (16:50)
[2017-11-13] MEDS: WARFARIN 3 MG TABLET PO SCH (17:00)
[2017-11-13] MEDS: acetaZOLAMIDE 250 MG TABLET PO SCH (20:59)
[2017-11-14] MEDS: ALBUTEROL 2.5 MG/3 ML NEB RESP TX SCH ×3 (00:10→13:02)
[2017-11-14 03:49] LABS: Allen Test Positive; Pt O2 Delivery Device BIPAP
[2017-11-14 03:51] LABS: ABG Base Excess 12.1 MMOL/L (-2.5-2.5); ABG HCO3 39.7 MMOL/L (20-26); ABG PH 7.411 (7.35-7.45); ABG PO2 47.1 MM HG (80-95); ABG TCO2 41.7 MMOL/L (23-27)
[2017-11-14 05:43] LABS: INR 1.7; PT Patient Result 18.1 SECS
[2017-11-14] MEDS: LEVOTHYROXINE 50 MCG TABLET PO SCH (06:00)
[2017-11-14 06:01] LABS: Calcium 8.8 MG/DL (8.5-10.1); Osmolality,Calculated 305.1 MOS/KG (273-304); Potassium 3.9 MMOL/L (3.5-5.1)
[2017-11-14] MEDS: ONDANSETRON 4 MG/2 ML VIAL IV PRN (06:03)
[2017-11-14] MEDS: CETIRIZINE 10 MG TABLET PO SCH (08:32)
[2017-11-14] MEDS: THEOPHYLLINE ER (24 HR) 400 MG TABLET PO SCH (08:32)
[2017-11-14] MEDS: acetaZOLAMIDE 250 MG TABLET PO SCH (08:32)
[2017-11-14] MEDS: INSULIN REGULAR 100 UNIT/ML SUBCUT SCH ×2 (08:32→14:08)
[2017-11-14] MEDS: POLYETHYLENE GLYCOL POWDER 17 GM PACK PO SCH (08:32)
[2017-11-14] MEDS: BUDESONIDE/FORMOTEROL 160-4.5 INHALER 6 GM INH SCH (08:36)
[2017-11-14] MEDS ORDERED: predniSONE 20 MG TABLET PO SCH (09:00)
[2017-11-14] MEDS ORDERED: FUROSEMIDE 80 MG TABLET PO SCH (09:00)
[2017-11-14 15:56] VITALS: BP 150/79
== END 2017-11-14 14:15 | disposition swing bed (61) | DRG 291 ==
LOC: EDBD → EDUNIT# → N.ED 16:54 → SUATTDRO 18:14 → N.EDINP 18:14 → N.TELES 18:33 → N.CC 11-01 09:13 → N.4E 11-07 16:41
PROVIDERS: ADMIT Internal Medicine; ATTEND Internal Medicine

== ENCOUNTER 2017-11-15 15:14 | Inpatient (IN) ==
[2017-11-15 16:18] LABS: Ammonia 58 UMOL/L (11-32)
[2017-11-15 16:20] LABS: Lactic Acid 0.7 MMOL/L (0.4-2.0)
[2017-11-15 16:23] LABS: Apearance,Urine Slightly Hazy (Clear); Bilirubin,Urine Negative (Negative); Blood, Urine Negative (Negative); Glucose,Urine (UA) Negative (Negative); Granular Casts,Urine 60 /LPF (0-1); Hyaline Casts,Urine 10 /LPF (0-3); Ketones,Urine Negative (Negative); Mucus,Urine Occasional /LPF (Occasional); Nitrite,Urine Negative (Negative); Protein,Urine 100 MG/DL; RBC,Urine 1 /HPF (0-4); Squamous Epithelial Cell,Urine Occasional /HPF (0-10); Troponin I 0.088 NG/ML (0.00-0.045); Urine Color Amber (Yellow); Urine Specific Gravity 1.016 (1.001-1.035); WBC,Urine 5 /HPF (0-6)
[2017-11-15 16:29] LABS: ABG Base Excess 3.2 MMOL/L (-2.5-2.5); ABG HCO3 27.1 MMOL/L (20-26); ABG Oxygen Saturation 89.6 % (95-100); ABG PO2 71.3 MM HG (80-95); ABG TCO2 35.6 MMOL/L (23-27)
[2017-11-15 16:34] LABS: Basophils % 0.1 % (0.0-0.8); Eosinophils % 0.1 % (0.00-10.9); Hematocrit 42.1 VOL% (35.7-47.0); Immature Granulocytes % 1.6 %; Immature Granulocytes Absolute 0.22 #; Lymphocytes # 0.4 10*3/uL (1.4-4.0); Lymphocytes % 2.6 % (21.3-54.2); Mean Corpuscular HGB Conc 28.5 GM/DL (32-36); Mean Corpuscular Hemoglobin 30 PG (27-34); Mean Corpuscular Volume 103.4 FL (87-102); Mean Platelet Volume 11.8 FL (9.6-12.0); Monocytes # 0.3 10*3/uL (0.11-0.8); Monocytes % 1.8 % (1.7-12.7); Neutrophils # 13.3 10*3/uL (1.4-7.4); Neutrophils % 93.8 % (38.7-73.9); Platelet Count 144 T/CUMM (130-400); Red Blood Count 4.07 MC/CUMM (3.8-5.5); Red Cell Distribution Width 15.9 % (9.3-17.3); White Blood Count 14.2 T/CUMM (4-12)
[2017-11-15 16:37] LABS: Albumin 3.6 G/DL (3.4-5.0); Bilirubin,Total 0.4 MG/DL (0.2-1.0); Calcium 8.9 MG/DL (8.5-10.1); Osmolality,Calculated 313.5 MOS/KG (273-304)
[2017-11-15] MEDS ORDERED: FUROSEMIDE 40 MG/4 ML VIAL IV STA (17:24)
[2017-11-15] MEDS ORDERED: VECURONIUM 10 MG VIAL IV ONE (17:35)
[2017-11-15] MEDS ORDERED: ETOMIDATE 20 MG/10 ML VIAL IV ONE (17:35)
[2017-11-15 17:57] LABS: ABG Base Excess 4.8 MMOL/L (-2.5-2.5); ABG HCO3 28.8 MMOL/L (20-26); ABG Oxygen Saturation 99.9 % (95-100); ABG PH 7.228 (7.35-7.45); ABG TCO2 32.7 MMOL/L (23-27)
[2017-11-15 17:58] LABS: ABG PCO2 86.4 MM HG (35-48)
[2017-11-15] MEDS: PROPOFOL 1,000 MG/100 ML BOTTLE IV SCH ×2 (17:58→21:14)
[2017-11-15 18:00] LABS: Lymphocytes 1 % (20-55); Macrocytosis 1+; Platelet Estimate Decreased; Polychromasia Few; Segmented Neutrophils 99 % (50-85); Total Cells Counted 100
[2017-11-15 18:13] LABS: INR 1.7; PT Patient Result 17.4 SECS
[2017-11-15 18:14] LABS: Partial Thromboplastin Time 23.8 SECS (0-40)
[2017-11-15] MEDS ORDERED: DEXTROSE 50% 25 GM/50 ML VIAL IV PRN (18:39)
[2017-11-15] MEDS ORDERED: GLUCAGON 1 MG VIAL IM PRN (18:39)
[2017-11-15] MEDS ORDERED: ALBUTEROL 2.5 MG/3 ML NEB RESP TX PRN (18:47)
[2017-11-15] MEDS ORDERED: AMINOPHYLLINE 1,000 MG in SODIUM CHLORIDE 0.9% 460 ML IV SCH (19:00)
[2017-11-15] MEDS ORDERED: METOPROLOL SUCCINATE XL 50 MG TABLET PO SCH (19:30)
[2017-11-15] MEDS: ALBUTEROL 2.5 MG/3 ML NEB RESP TX SCH (19:50)
[2017-11-15 19:59] LABS: ABG Base Excess 6.3 MMOL/L (-2.5-2.5); ABG HCO3 30.2 MMOL/L (20-26); ABG Oxygen Saturation 99.3 % (95-100); ABG PH 7.294 (7.35-7.45); ABG TCO2 32.2 MMOL/L (23-27)
[2017-11-15] MEDS ORDERED: LEVOFLOXACIN INJ 500 MG in PREMIX 1 EACH IV ONE (20:00)
[2017-11-15 20:09] LABS: ABG PCO2 73.2 MM HG (35-48)
[2017-11-15] MEDS: methylPREDNISolone SOD SUC 40 MG/1 ML VIAL IV SCH (20:38)
[2017-11-15] MEDS: ENOXAPARIN 30 MG/0.3 ML SYRINGE SUBCUT SCH (20:38)
[2017-11-15] MEDS: SODIUM CHLORIDE 0.9% 1,000 ML IV SCH (20:39)
[2017-11-15] MEDS: PIPERACILLIN/TAZOBACTAM 3,375 MG in SODIUM CHLORIDE 0.9% 100 ML IV SCH (20:40)
[2017-11-15] MEDS: WARFARIN 3 MG TABLET PO SCH (20:44)
[2017-11-15] MEDS ORDERED: cloNIDine 0.1 MG TABLET PO PRN (21:36)
[2017-11-15] MEDS ORDERED: hydrALAZINE 20 MG/1 ML VIAL IV ONE (23:30)
[2017-11-16] MEDS: INSULIN REGULAR 100 UNIT/ML SUBCUT SCH ×5 (00:20→23:48)
[2017-11-16] MEDS: ALBUTEROL 2.5 MG/3 ML NEB RESP TX SCH ×4 (00:40→19:07)
[2017-11-16] MEDS: methylPREDNISolone SOD SUC 40 MG/1 ML VIAL IV SCH ×4 (01:55→19:29)
[2017-11-16] MEDS: PROPOFOL 1,000 MG/100 ML BOTTLE IV SCH ×4 (02:43→18:36)
[2017-11-16 03:53] LABS: ABG Base Excess 9.9 MMOL/L (-2.5-2.5); ABG HCO3 33.7 MMOL/L (20-26); ABG Oxygen Saturation 99.6 % (95-100); ABG PCO2 42.4 MM HG (35-48); ABG PH 7.512 (7.35-7.45); ABG TCO2 30.3 MMOL/L (23-27)
[2017-11-16] MEDS: SODIUM CHLORIDE 0.9% 1,000 ML IV SCH (04:06)
[2017-11-16] MEDS: PIPERACILLIN/TAZOBACTAM 3,375 MG in SODIUM CHLORIDE 0.9% 100 ML IV SCH ×3 (05:06→21:24)
[2017-11-16 05:41] LABS: Hemoglobin 10.8 GM/DL (12.0-16.0); Immature Granulocytes % 1.4 %; Immature Granulocytes Absolute 0.12 #; Lymphocytes # 0.3 10*3/uL (1.4-4.0); Lymphocytes % 3.4 % (21.3-54.2); Mean Corpuscular HGB Conc 30.9 GM/DL (32-36); Mean Corpuscular Hemoglobin 29 PG (27-34); Mean Corpuscular Volume 94.9 FL (87-102); Mean Platelet Volume 11.6 FL (9.6-12.0); Monocytes # 0.2 10*3/uL (0.11-0.8); Monocytes % 1.7 % (1.7-12.7); NRBC # 0.02 10*3/uL; Neutrophils # 8.3 10*3/uL (1.4-7.4); Neutrophils % 93.5 % (38.7-73.9); Platelet Count 151 T/CUMM (130-400); Red Blood Count 3.69 MC/CUMM (3.8-5.5); Red Cell Distribution Width 15.5 % (9.3-17.3); White Blood Count 8.9 T/CUMM (4-12)
[2017-11-16 06:03] LABS: Calcium 8.3 MG/DL (8.5-10.1); Potassium 4.2 MMOL/L (3.5-5.1)
[2017-11-16 06:08] LABS: Lymphocytes 3 % (20-55); Platelet Estimate Normal; Segmented Neutrophils 96 % (50-85); Total Cells Counted 100
[2017-11-16 06:10] LABS: Hypochromasia 1+; Macrocytosis Slight; Ovalocytes Slight
[2017-11-16] MEDS: LEVOTHYROXINE 50 MCG TABLET PO SCH (07:18)
[2017-11-16] MEDS: PANTOPRAZOLE 40 MG VIAL IV SCH (10:44)
[2017-11-16] MEDS: DEXTROSE 5% NACL 0.9% 1,000 ML IV SCH (10:45)
[2017-11-16 11:04] LABS: ABG Base Excess 7.9 MMOL/L (-2.5-2.5); ABG HCO3 31.7 MMOL/L (20-26); ABG Oxygen Saturation 97.7 % (95-100); ABG PCO2 53.4 MM HG (35-48); ABG PH 7.412 (7.35-7.45); ABG TCO2 30.7 MMOL/L (23-27)
[2017-11-16 12:31] LABS: Free T4 (Free Thyroxine) 1.24 NG/DL (0.76-1.46); Thyroid Stimulating Hormone 0.142 uIU/ml (0.358-3.74)
[2017-11-16] MEDS: WARFARIN 3 MG TABLET PO SCH (18:43)
[2017-11-16] MEDS: LEVOFLOXACIN INJ 250 MG in PREMIX 1 EACH IV SCH (21:10)
[2017-11-16] MEDS: METOPROLOL SUCCINATE XL 50 MG TABLET PO SCH (21:14)
[2017-11-16] MEDS: ENOXAPARIN 30 MG/0.3 ML SYRINGE SUBCUT SCH (21:14)
[2017-11-17] MEDS: PROPOFOL 1,000 MG/100 ML BOTTLE IV SCH ×5 (00:12→19:31)
[2017-11-17] MEDS: ALBUTEROL 2.5 MG/3 ML NEB RESP TX SCH ×4 (00:42→19:44)
[2017-11-17] MEDS: methylPREDNISolone SOD SUC 40 MG/1 ML VIAL IV SCH ×3 (01:33→18:16)
[2017-11-17 04:23] LABS: ABG Base Excess 6.1 MMOL/L (-2.5-2.5); ABG HCO3 32.4 MMOL/L (20-26); ABG Oxygen Saturation 98.2 % (95-100); ABG PCO2 55.6 MM HG (35-48); ABG PH 7.384 (7.35-7.45); ABG PO2 122.7 MM HG (80-95); ABG TCO2 34.2 MMOL/L (23-27); Allen Test Positive; Pt O2 Delivery Device Ventilator
[2017-11-17] MEDS: DEXTROSE 5% NACL 0.9% 1,000 ML IV SCH (04:49)
[2017-11-17] MEDS: PIPERACILLIN/TAZOBACTAM 3,375 MG in SODIUM CHLORIDE 0.9% 100 ML IV SCH ×3 (05:00→20:40)
[2017-11-17 05:46] LABS: Hematocrit 35.9 VOL% (35.7-47.0); Immature Granulocytes % 0.9 %; Immature Granulocytes Absolute 0.08 #; Lymphocytes # 0.1 10*3/uL (1.4-4.0); Lymphocytes % 1.5 % (21.3-54.2); Mean Corpuscular HGB Conc 30.6 GM/DL (32-36); Mean Corpuscular Hemoglobin 30 PG (27-34); Mean Corpuscular Volume 96.2 FL (87-102); Mean Platelet Volume 10.9 FL (9.6-12.0); Monocytes # 0.2 10*3/uL (0.11-0.8); Monocytes % 2.2 % (1.7-12.7); Neutrophils # 8.9 10*3/uL (1.4-7.4); Neutrophils % 95.4 % (38.7-73.9); Platelet Count 149 T/CUMM (130-400); Red Blood Count 3.73 MC/CUMM (3.8-5.5); White Blood Count 9.3 T/CUMM (4-12)
[2017-11-17 06:05] LABS: Calcium 8.4 MG/DL (8.5-10.1); Potassium 3.8 MMOL/L (3.5-5.1)
[2017-11-17 06:09] LABS: INR 2.7
[2017-11-17] MEDS: INSULIN REGULAR 100 UNIT/ML SUBCUT SCH ×3 (06:09→18:23)
[2017-11-17 06:12] LABS: PT Patient Result 27.7 SECS
[2017-11-17 06:20] LABS: Band Neutrophils 8 % (0-10); Lymphocytes 2 % (20-55); Platelet Estimate Normal; Segmented Neutrophils 89 % (50-85); Total Cells Counted 100
[2017-11-17 06:21] LABS: Anisocytosis Slight; Basophilic Stippling Slight; Macrocytosis 1+
[2017-11-17] MEDS: LEVOTHYROXINE 50 MCG TABLET PO SCH (07:22)
[2017-11-17] MEDS: PANTOPRAZOLE 40 MG VIAL IV SCH (08:19)
[2017-11-17] MEDS: METOPROLOL SUCCINATE XL 50 MG TABLET PO SCH (10:45)
[2017-11-17] MEDS: SODIUM CHLORIDE 0.9% 1,000 ML IV SCH (10:59)
[2017-11-17] MEDS: METOPROLOL TARTRATE 50 MG TABLET PO SCH ×2 (11:22→20:39)
[2017-11-17] MEDS: WARFARIN 3 MG TABLET PO SCH (18:16)
[2017-11-17] MEDS: LEVOFLOXACIN INJ 250 MG in PREMIX 1 EACH IV SCH (20:37)
[2017-11-17] MEDS: ENOXAPARIN 30 MG/0.3 ML SYRINGE SUBCUT SCH (20:39)
[2017-11-17] MEDS ORDERED: INSULIN NPH/REGULAR 70/30 100 UNIT/ML SUBCUT SCH (21:30)
[2017-11-17] MEDS ORDERED: SODIUM BICARBONATE 50 MEQ/50 ML SYRINGE IV ONE (23:34)
[2017-11-17 23:45] LABS: ABG HCO3 25.8 MMOL/L (20-26); ABG PO2 58.5 MM HG (80-95); ABG TCO2 31.1 MMOL/L (23-27)
[2017-11-17 23:48] LABS: ABG PCO2 89.8 MM HG (35-48)
[2017-11-18] MEDS ORDERED: EPINEPHrine 1 MG/10 ML SYRINGE ONE ×3 (00:03→04:00)
[2017-11-18] MEDS ORDERED: FUROSEMIDE 40 MG/4 ML VIAL ONE (00:07)
[2017-11-18] MEDS ORDERED: FUROSEMIDE 40 MG/4 ML VIAL IV ONE (00:09)
[2017-11-18] MEDS ORDERED: NITROGLYCERIN 2% OINT 1 INCH/GM PACK TOP ONE (00:10)
[2017-11-18 00:29] LABS: Calcium 8.7 MG/DL (8.5-10.1); Osmolality,Calculated 326.1 MOS/KG (273-304); Potassium 4.6 MMOL/L (3.5-5.1)
[2017-11-18] MEDS ORDERED: SODIUM BICARBONATE 50 MEQ/50 ML SYRINGE IV ONE ×2 (00:31→00:34)
[2017-11-18 00:34] LABS: Troponin I 0.088 NG/ML (0.00-0.045)
[2017-11-18] MEDS ORDERED: NOREPINEPHRINE 4 MG/4 ML VIAL IV ONE ×2 (00:37→00:38)
[2017-11-18] MEDS: NOREPINEPHRINE 8 MG in SODIUM CHLORIDE 0.9% 242 ML IV PRN ×2 (00:38→12:21)
[2017-11-18] MEDS ORDERED: SODIUM BICARBONATE 50 MEQ/50 ML VIAL IV ONE ×2 (00:40→04:00)
[2017-11-18] MEDS: PHENYLEPHRINE DRIP 40 MG/250 ML PREMIX IV PRN ×4 (00:40→16:09)
[2017-11-18] MEDS: ALBUTEROL 2.5 MG/3 ML NEB RESP TX SCH ×4 (00:41→19:05)
[2017-11-18] MEDS: DOPamine 800 MG/250 ML PREMIX IV PRN (00:45)
[2017-11-18 00:51] LABS: Lactic Acid 3.3 MMOL/L (0.4-2.0)
[2017-11-18 01:02] LABS: Basophils % 0.1 % (0.0-0.8); Hematocrit 47.6 VOL% (35.7-47.0); Hemoglobin 14.3 GM/DL (12.0-16.0); Immature Granulocytes % 3.1 %; Immature Granulocytes Absolute 0.54 #; Lymphocytes # 2.1 10*3/uL (1.4-4.0); Lymphocytes % 12.1 % (21.3-54.2); Mean Corpuscular Hemoglobin 30 PG (27-34); Mean Corpuscular Volume 98.3 FL (87-102); Mean Platelet Volume 12.1 FL (9.6-12.0); Monocytes # 0.6 10*3/uL (0.11-0.8); Monocytes % 3.6 % (1.7-12.7); NRBC # 0.08 10*3/uL; Neutrophils # 14.3 10*3/uL (1.4-7.4); Neutrophils % 81.1 % (38.7-73.9); Platelet Count 194 T/CUMM (130-400); Red Cell Distribution Width 16.7 % (9.3-17.3); White Blood Count 17.6 T/CUMM (4-12)
[2017-11-18 01:03] LABS: Red Blood Count 4.84 MC/CUMM (3.8-5.5)
[2017-11-18] MEDS: PROPOFOL 1,000 MG/100 ML BOTTLE IV SCH ×4 (03:02→18:17)
[2017-11-18] MEDS: INSULIN REGULAR 100 UNIT/ML SUBCUT SCH ×6 (03:44→19:48)
[2017-11-18] MEDS: VANCOMYCIN INJ 2,000 MG in SODIUM CHLORIDE 0.9% 500 ML IV SCH (04:30)
[2017-11-18 04:56] LABS: Calcium 8.8 MG/DL (8.5-10.1); Osmolality,Calculated 331.8 MOS/KG (273-304); Potassium 3.6 MMOL/L (3.5-5.1)
[2017-11-18 05:13] LABS: ABG Base Excess 2.4 MMOL/L (-2.5-2.5); ABG HCO3 26.2 MMOL/L (20-26); ABG Oxygen Saturation 82.7 % (95-100); ABG PCO2 58.1 MM HG (35-48); ABG PH 7.327 (7.35-7.45); ABG PO2 50.8 MM HG (80-95); ABG TCO2 26.3 MMOL/L (23-27); Allen Test Positive; Pt O2 Delivery Device Ventilator
[2017-11-18] MEDS: methylPREDNISolone SOD SUC 40 MG/1 ML VIAL IV SCH ×2 (06:38→18:10)
[2017-11-18] MEDS: INSULIN NPH/REGULAR 70/30 100 UNIT/ML SUBCUT SCH ×2 (06:38→18:10)
[2017-11-18] MEDS: LEVOTHYROXINE 50 MCG TABLET PO SCH (06:39)
[2017-11-18] MEDS: SODIUM CHLORIDE 0.9% 1,000 ML IV SCH (07:49)
[2017-11-18 08:25] LABS: PT Patient Result 62.8 SECS
[2017-11-18 08:27] LABS: INR 6.4
[2017-11-18] MEDS ORDERED: PHYTONADIONE 10 MG/1 ML AMP SUBCUT ONE (08:52)
[2017-11-18] MEDS: PANTOPRAZOLE 40 MG VIAL IV SCH (09:12)
[2017-11-18] MEDS: MEROPENEM 500 MG in SODIUM CHLORIDE 0.9% 100 ML IV SCH ×2 (09:12→21:58)
[2017-11-18] MEDS: METOPROLOL TARTRATE 50 MG TABLET PO SCH ×2 (09:21→23:22)
[2017-11-18 12:28] LABS: Partial Thromboplastin Time 37.4 SECS (0-40)
[2017-11-18 12:42] LABS: PT Patient Result 62.8 SECS
[2017-11-18 12:44] LABS: INR 6.4
[2017-11-18] MEDS ORDERED: SODIUM CHLORIDE 0.9% 1,000 ML IV PRN (12:56)
[2017-11-18] MEDS: LEVOFLOXACIN INJ 250 MG in PREMIX 1 EACH IV SCH (19:51)
[2017-11-18] MEDS: ENOXAPARIN 30 MG/0.3 ML SYRINGE SUBCUT SCH (21:53)
[2017-11-19] MEDS: ALBUTEROL 2.5 MG/3 ML NEB RESP TX SCH ×4 (00:30→19:10)
[2017-11-19] MEDS: INSULIN REGULAR 100 UNIT/ML SUBCUT SCH ×6 (00:52→21:04)
[2017-11-19 04:13] LABS: ABG Base Excess 7.5 MMOL/L (-2.5-2.5); ABG HCO3 31.3 MMOL/L (20-26); ABG Oxygen Saturation 94.4 % (95-100); ABG PCO2 50.6 MM HG (35-48); ABG PH 7.426 (7.35-7.45); ABG PO2 72.7 MM HG (80-95); ABG TCO2 29.8 MMOL/L (23-27); Allen Test Positive; Pt O2 Delivery Device Ventilator
[2017-11-19 05:27] LABS: INR 2.6
[2017-11-19 05:30] LABS: PT Patient Result 26.4 SECS
[2017-11-19 05:36] LABS: Calcium 8.3 MG/DL (8.5-10.1); Potassium 3.5 MMOL/L (3.5-5.1)
[2017-11-19] MEDS: INSULIN NPH/REGULAR 70/30 100 UNIT/ML SUBCUT SCH ×2 (05:54→18:33)
[2017-11-19] MEDS: LEVOTHYROXINE 50 MCG TABLET PO SCH (06:06)
[2017-11-19] MEDS: methylPREDNISolone SOD SUC 40 MG/1 ML VIAL IV SCH ×2 (06:06→18:32)
[2017-11-19] MEDS: PROPOFOL 1,000 MG/100 ML BOTTLE IV SCH ×3 (06:07→20:55)
[2017-11-19] MEDS: MEROPENEM 500 MG in SODIUM CHLORIDE 0.9% 100 ML IV SCH ×2 (09:02→22:06)
[2017-11-19] MEDS: PANTOPRAZOLE 40 MG VIAL IV SCH (09:02)
[2017-11-19] MEDS: METOPROLOL TARTRATE 50 MG TABLET PO SCH ×2 (09:04→22:08)
[2017-11-19] MEDS ORDERED: AMIODARONE INJ 450 MG in DEXTROSE 5% 241 ML IV SCH ×3 (10:30→17:30)
[2017-11-19] MEDS ORDERED: EPINEPHrine 1 MG/ML VIAL ONE (10:35)
[2017-11-19] MEDS ORDERED: AMIODARONE 450 MG/9 ML VIAL IV ONE (10:47)
[2017-11-19] MEDS: DOPamine 800 MG/250 ML PREMIX IV PRN (11:00)
[2017-11-19] MEDS: PHENYLEPHRINE DRIP 40 MG/250 ML PREMIX IV PRN (11:41)
[2017-11-19 11:46] LABS: Albumin 2.2 G/DL (3.4-5.0); Bilirubin,Total 0.5 MG/DL (0.2-1.0); Calcium 8.2 MG/DL (8.5-10.1); Potassium 3.4 MMOL/L (3.5-5.1); Total Protein 5.3 G/DL (6.4-8.3)
[2017-11-19] MEDS: AMIODARONE INJ 450 MG in DEXTROSE 5% 241 ML IV SCH ×2 (16:30→20:56)
[2017-11-19] MEDS ORDERED: WARFARIN 4 MG TABLET PO SCH (18:00)
[2017-11-19] MEDS: LEVOFLOXACIN INJ 250 MG in PREMIX 1 EACH IV SCH (20:52)
[2017-11-19] MEDS: SODIUM CHLORIDE 0.9% 1,000 ML IV SCH (20:59)
[2017-11-19] MEDS: ENOXAPARIN 30 MG/0.3 ML SYRINGE SUBCUT SCH (22:17)
[2017-11-20] MEDS: INSULIN REGULAR 100 UNIT/ML SUBCUT SCH ×2 (00:05→03:37)
[2017-11-20] MEDS: VANCOMYCIN INJ 2,000 MG in SODIUM CHLORIDE 0.9% 500 ML IV SCH (01:13)
[2017-11-20] MEDS: PROPOFOL 1,000 MG/100 ML BOTTLE IV SCH ×2 (01:14→05:15)
[2017-11-20] MEDS: ALBUTEROL 2.5 MG/3 ML NEB RESP TX SCH ×2 (01:22→06:53)
[2017-11-20 03:43] LABS: ABG Base Excess 5.8 MMOL/L (-2.5-2.5); ABG HCO3 30.9 MMOL/L (20-26); ABG Oxygen Saturation 98.3 % (95-100); ABG PCO2 47.7 MM HG (35-48); ABG PO2 139.1 MM HG (80-95); ABG TCO2 32.4 MMOL/L (23-27)
[2017-11-20] MEDS: methylPREDNISolone SOD SUC 40 MG/1 ML VIAL IV SCH (06:08)
[2017-11-20] MEDS: LEVOTHYROXINE 50 MCG TABLET PO SCH (06:11)
[2017-11-20] MEDS: INSULIN NPH/REGULAR 70/30 100 UNIT/ML SUBCUT SCH (06:11)
[2017-11-20 06:22] LABS: INR 1.7
[2017-11-20 06:43] LABS: Calcium 8.1 MG/DL (8.5-10.1); Osmolality,Calculated 333.4 MOS/KG (273-304); Potassium 3.8 MMOL/L (3.5-5.1)
[2017-11-20 09:43] LABS: ABG Base Excess -4.4 MMOL/L (-2.5-2.5); ABG HCO3 20.4 MMOL/L (20-26); ABG Oxygen Saturation 76.9 % (95-100); ABG PO2 59.1 MM HG (80-95); ABG TCO2 25.4 MMOL/L (23-27); Pt O2 Delivery Device Ventilator
[2017-11-20 09:47] LABS: ABG PH 7.132 (7.35-7.45)
[2017-11-20] MEDS ORDERED: ASPIRIN CHEW 81 MG TABLET PO SCH (10:00)
[2017-11-20 11:24] LABS: ABG PCO2 79.8 MM HG (35-48)
[2017-11-20 12:04] VITALS: BP 61/43
== END 2017-11-20 09:56 | disposition expired | DRG 207 ==
LOC: EDBD → EDUNIT# → N.ED 15:14 → SUATTDRO 18:27 → N.EDINP 18:27 → N.ICU 19:03
PROVIDERS: ADMIT Internal Medicine; ATTEND Internal Medicine